=== PATIENT | female | born 2000 | race Caucasian/White ===

== ENCOUNTER 2024-09-14 20:16 | Inpatient (IN) | payer OTHER, SELFPAY ==
[2024-09-14] MEDS: LACTATED RINGERS 1,000 ML 125 ML IV CONT (21:26)
[2024-09-14] MEDS: AMPICILLIN 2 GM/NS 100 ML 2 GM/100 ML BAG IVPB (21:26)
[2024-09-14 21:27] VITALS: BMI 31.1
--- NOTE | 2024-09-14 21:29 | LDADM ---
This patient, Maricel Rosado, was admitted to Labor/Delivery/Recovery 103 on 09/14/24 at 20:16. Plans for labor, pain management and were discussed with patient. Patient/family oriented to hospital policies and general routines including ID bracelet, bed and alarms, visiting hours, pain management, procedures, bathroom and other care routines, personal items, smoking policy, room service/diet and guest tray routines, infant security routines, and visiting hours. Patient/Family are encouraged to report perceived risks to care and to ask questions if they do not understand what they are told or what they should do. See OBIX for further documentation.
[2024-09-14 21:32] LABS: Basophils Absolute Auto 0.1 K/mm3 (0.0-0.1); Basophils Percent Auto 0.3 % (0.2-1.2); Eosinophils Absolute Auto 0.1 K/mm3 (0-0.3); Eosinophils Percent Auto 0.7 % (0-4.4); Hematocrit 34.3 % (37.0-47.0); Hemoglobin 10.9 g/dL (12.0-15.0); Immature Granulocyte Absolute 0.19 K/mm3 (0.00-0.031); Immature Granulocyte Percent A 1.1 % (0-0.5); Lymphocytes Absolute Auto 2.17 K/mm3 (0.9-3.2); Lymphocytes Percent Auto 12.4 % (18.3-44.2); Mean Corpuscular HGB Conc 31.8 g/dl (32-36); Mean Corpuscular Hemoglobin 27.9 pg (26-34); Mean Corpuscular Volume 87.9 fl (80-100); Mean Platelet Volume 10.7 fl (7.4-10.4); Monocytes Absolute Auto 1.3 K/mm3 (0.1-0.6); Monocytes Percent Auto 7.3 % (2.6-8.5); Neutrophils Absolute Auto 13.7 K/mm3 (1.3-6.7); Neutrophils Percent Auto 78.2 % (45.5-73.1); Platelet Count Result 257 k/mm3 (150-375); Red Cell Distribution Width 14.3 % (11.5-14.5); White Blood Count 17.6 K/mm3 (4.5-10.0)
[2024-09-14 22:00] VITALS: TEMP 36.6
[2024-09-14 22:15] LABS: Syphilis IgG/IgM Antibody Negative (Negative)
[2024-09-14 22:22] LABS: HIV 1/2 Ab P24 Ag Result Negative (Negative)
[2024-09-14 22:30] VITALS: BP 112/74; PULSE 98
[2024-09-14 22:45] VITALS: BP 115/68; PULSE 116
[2024-09-14 23:00] VITALS: BP 108/79; PULSE 106
[2024-09-14 23:15] VITALS: BP 118/80; PULSE 134
[2024-09-14] MEDS: OXYTOCIN 30 UNITS/NS 500 ML 30 UNITS/500 ML BAG IV CONT (23:30)
[2024-09-14 23:45] VITALS: BP 94/72; PULSE 113
[2024-09-15] VITALS (99 sets, daily range): BP systolic 76–132; BP diastolic 44–99; PULSE 55–143; RESP 18; TEMP 36.2–36.8; O2SAT 94–100
[2024-09-15] MEDS: AMPICILLIN 1 GM/NS 50 ML 1 GM/50 ML BAG IVPB ×4 (01:38→14:12)
[2024-09-15] MEDS: fentaNYL CITRATE INJ (*CRX) 100 MCG/2 ML VIAL 50 MCG IV PUSH ×3 (03:51→13:07)
[2024-09-15] MEDS: LACTATED RINGERS 1,000 ML 125 ML IV CONT (08:32)
--- NOTE | 2024-09-15 09:28 | WPDOBADMIT ---
Obstetrics - Admit Note Admission Note: record reviewed. No pertinent additions to the history and/or any subsequent changes in the physical findings that are not consistent with the expected course of the were found. Additions to the history and/or subsequent changes in the physical findings follow. admit for SROM, hx asthma, marginal cord insertion, anticipate vaginal delivery
[2024-09-15] MEDS: ONDANSETRON INJ 4 MG/2 ML VIAL IV PUSH (09:56)
[2024-09-15] MEDS: fentaNYL CITRATE INJ (*CRX) 100 MCG/2 ML VIAL IV PUSH ×3 (14:46→18:23)
--- NOTE | 2024-09-15 16:42 | PM.OBPNLAB ---
Pain Control Date/time seen: 09/15/24 16:42 Comments: SVE /-2, US done, vertex, forebag ruptured clear fluid, anticipate vaginal delivery
[2024-09-15] MEDS: METHYLERGONOVINE MALEATE 0.2 MG/ML VIAL IM (18:25)
--- NOTE | 2024-09-15 18:30 | PM.OBPRVD ---
OB - Vaginal Delivery Note Procedure Delivery date: 09/15/24 Induction method: None Delivery augmentation: Rupture of Membranes and Pitocin Delivery monitor: External FHT and Internal Uterine Route of delivery: Episiotomy description: None Laceration Description: None Specimen: No Quantitative Blood Loss (ml): 400 Anesthesia type: None Disposition: Floor Complications: No immediate complications Baby Date of : 09/15/24 Time of : 18:13 Gestational Age by Date: 36 Infant gender: Female Weight (pounds): 5 Weight (ounces): 11 presentation: vertex position: Left Occiput Anterior Placenta delivery description: Spontaneous Cord Vessel Description: 3 Vessels score one minute: 9 score five minutes: 9 Narrative: bleeding increased after delivery of placenta, pitocin and methergine given, manual removal of large clots, then fundus firm
[2024-09-15] MEDS: OXYTOCIN 30 UNITS/NS 500 ML 30 UNITS/500 ML BAG 125 UNITS IV CONT (18:40)
--- NOTE | 2024-09-15 21:44 | OBPPTRN ---
09/15/2024 at 2032. Patient transferred to post room #112 in wheelchair. Support person Wali present. Lidia oriented to unit, room, information board, rooming in, admission packet and security measures. Lidia verbalizes understanding.
[2024-09-16] VITALS (7 sets, daily range): BP systolic 98–108; BP diastolic 51–64; PULSE 73–86; RESP 16–18; TEMP 36.2–36.5; O2SAT 99–100
[2024-09-16] MEDS: IBUPROFEN 600 MG TABLET PO ×2 (03:20→09:16)
[2024-09-16 05:06] LABS: Hematocrit 31.9 % (37.0-47.0); Hemoglobin 10.1 g/dL (12.0-15.0)
--- NOTE | 2024-09-16 08:42 | P.PNOB_ITS ---
OB - PN: Subj Subjective Date/time seen: 09/16/24 08:42 Interval history: pp day 1 doing well OB - PN: Obj Data Labs 09/16/24 04:59 Labs: Laboratory Results - last 24 hr 09/16/24 04:59 Hgb 10.1 L Hct 31.9 L OB - PN A/P Plan day: 1 Plan: routine care Time Spent With Patient Time: Total time spent is greater than 50% in coordination of care (as documented) at patient's floor/unit and/or counseling patient: Review of Systems 2 Review of Systems: All systems reviewed & are unremarkable except as noted in HPI and below Exam 2 Const: General: cooperative, healthy appearing and comfortable Chest: Chest palpation & inspection: normal inspection of the chest Cardio: Rate: regular rate Rhythm: regular rhythm Back/Spine/Pelvis: Back: no CVA tenderness Skin: General skin exam: normal color Neuro: General: patient oriented x3 Extrem: General: normal to inspection Psych: Appearance: grossly normal
[2024-09-16] MEDS: MULTIVIT/MIN/PREN/FOL AC/IRON TABLET 1 TAB PO (09:17)
[2024-09-17 07:25] VITALS: BP 114/64; PULSE 86; RESP 18; TEMP 36.8; O2SAT 97
[2024-09-17] MEDS: IBUPROFEN 600 MG TABLET PO (07:25)
[2024-09-17] MEDS: MULTIVIT/MIN/PREN/FOL AC/IRON TABLET 1 TAB PO (07:26)
[2024-09-17] MEDS: DOCUSATE SODIUM 100 MG CAPSULE PO (07:26)
[2024-09-17 07:29] VITALS: PULSE 85; O2SAT 97
[2024-09-17 07:30] VITALS: BP 114/64; PULSE 82
--- NOTE | 2024-09-17 13:09 | PC.NURSE ---
0750 Introductions were made, then consulted with patient to assess needs related to . Mother led the conversation with her?plans to feed?her and the?experience so far. Per mother she had tried to put baby to breast but her nipples are too large for the baby to latch right now and she just wants to pump and bottle feed, she may try to latch her at a later time. She declined any assistance and said she was already using her Mom Cozy breast pump and had the appropriate size flange. Instructions given on cleaning, care, usage, that there should be no pain, pumping schedule for milk production, collection, and storage of human milk. Patient advised to pump for comfort and nipple stretching/stimulation for adequate milk production every 3 hours (8 times in 24 hours) 1-2 times at night. Parents are encouraged to record the pumping schedule on the feeding sheet.?Mother voiced understanding of the education shared along with mom/baby guide and the pump measurement, flange fit handout for additional resource information. Mother had previously breastfed her 22 month old but had stopped when she found out she was . RN encouraged understanding of the benefits of skin to skin (demonstrating unwrapping and placing upright on her chest), stimulating with massage touch, changing positions to encourage wakefulness, how to watch for early feeding cues, responsive feeding, feeding on demand (aiming for 8-12 times in 24 hours, about every 2-3 hours), milk production, building/maintaining a milk supply, signs of adequate intake/output and how to record on the feeding sheet. Mother works well with her infant with encouragement and education. Reviewed comfort measures of healing with a warm, wet washcloth to rinse breast, then leave open to air-dry, good handwashing when /pumping or touching the breast/nipples to prevent infection. Mother voiced understanding of skin to skin, stimulating with massage touch, responsive feedings, or if there is discomfort with using breast pump. Resources used for breast pump education were facilitated with the [visual educational handouts/milk/storage guidelines/mom and baby guide], Inpatient/outpatient resources provided with feeding sheet, name written on the communication board, and the mom/baby guide. Parents voiced understanding of information, demonstrated learning and will call if there is a request for assistance. Reported to the Primary RN. 0900 Mother is feeding appropriately for growth of infant and understands stimulating infant to eat if needed. Infant has had appropriate feedings in the last 24 hours meets the outcomes for weight, output, blood sugar and jaundice at this time. Reinforced understanding of milk production, transition of milk, signs of adequate intake, transition of stool, prevention/relief of engorgement, plugged ducts, mastitis, responsive watching for feeding cues, the different methods of stimulating to breastfeed 1-3 hours after the start of the last feeding, community resources, and when to call a provider using the resource of the feeding sheet along with the mom and baby guide. Mother voiced understanding of the information shared, is confident to continue effectively her infant at home, when to call for assistance, denies any additional assistance or education at this time. Reported to the Primary RN.
[2024-09-18 10:23] VITALS: BP 108/70; PULSE 86; RESP 18; TEMP 36.5; O2SAT 99
--- NOTE | 2024-09-18 10:59 | P.DS_ITS ---
DS: Admitting Diagnosis Discharge Date 09/17/24 Admitting Diagnosis SROM OB - DS: Summary OB Procedures : None OB Procedures Intrapartum: Spontaneous Vag Delivery OB Procedures: : None Peripartum Data Laceration Description: None Episiotomy description: None Time Spent with Patient Time attestation: Total time spent providing and/or coordinating discharge services: DS: Data Data Completed and Pending Pending studies at discharge: Pending at discharge 09/17/24 07:42 Surgical [PTH] Routine Discharge Plan Discharge Consulting providers: Michaela Brower Discharging Clinician: Hector Garcia Patient Disposition: Home, Self-Care Activity: may shower Diet: regular Discharge Instructions: Education: Mom and Baby Guide Given to: Mother Follow-Up: Call your delivering provider's office for an appointment to be seen in: 4 Weeks Mom and baby should come to the [facility] for the follow-up appointment. Appointment Date/Time: September 18, 2024 at 10:00 am What to expect at your follow-up visit: Blood Pressure Check Physical Assessment Call [phone] if you are unable to keep your appointment time. BREAST CARE: * Wear a snug supportive bra. * For engorgement discomfort: Breast Feeding: * Apply warm moist washcloths * Express milk as needed to relieve engorgement * Wear loose clothing Bottle Feeding: * May apply ice packs * For sore nipples: * Identify correct latch-on * Apply warm moist washcloths before and after nursing * Air dry nipples after nursing * May apply Lansinoh cream to nipples ABDOMINAL INCISION: (if applicable) * Allow incision to air dry * Do NOT use lotions for powders on your incision * When showering, allow soap and water to run over the incision, but do not wash incision EPISIOTOMY/PERINEAL CARE: * Until bleeding stops, use your sergey bottle after urinating * Change your pad frequently throughout the day * You may take sitz baths several times a day (fill your bathtub with warm water and soak for 20 minutes.) Do NOT bathe in the water * No tub baths until seen by your physician - You may shower ACTIVITY: * Rest as much as possible. * Do not exercise or lift anything heavier than your baby (such as laundry or other children.) * Avoid stairs or driving as much as possible. * Do not put anything into the vagina. No douching, tampons, or sexual activity until seen by physician. NOTIFY PHYSICIAN IF YOU HAVE ANY QUESTIONS OR IF ANY OF THE FOLLOWING SYMPTOMS OCCUR: * If your episiotomy or incision becomes red, swollen, or more painful than what you have experienced in the hospital. * If your vaginal bleeding becomes foul smelling. * If your vaginal bleeding becomes more heavy than a period or if your bleeding changes from pink to bright red. However, you may pass an occasional walnut- sized clot once or twice for the first week . * If you experience a sharp, shooting pain in you calves. * If you discover a hard, reddened area on your breast or if you experience flu- like symptoms. DIET: * Eat regular, well-balanced meals. * Drink plenty of fluids daily. If , drink to thirst. Patient Language: Bulgarian Stand Alone Forms: General Discharge Information Follow-up/Referrals: Hector Garcia MD [Physician] - Discharge Medications: Discontinued Classic 28 mg iron- 800 mcg tablet ferrous sulfate 325 mg (65 mg iron) tablet 325 mg PO DAILY No Action PNV cmb#95-ferrous fumarate-FA [] 28 mg iron- 800 mcg Tablet 1 tablet PO DAILY Date of admission: 09/14/24 20:16 Primary Care Provider: UNKNOWN,DOCTOR Admitting Provider: Hector Garcia Attending physician on admission: Hector Garcia Condition: Stable
== END 2024-09-17 13:45 | disposition home or self-care (01) | DRG 560 ==
LOC: ANHLDR 22:52 → ANHOBPP 09-15 20:47 → ANHOB2 09-17 11:01
PROVIDERS: Admitting Provider Obstetrics & Gynecology; Referring Provider Advanced Practice Midwife; Visit Provider Obstetrics & Gynecology
DX: O43.123 Velamentous insertion of umbilical cord, third trimester (principal); O60.14X0 Preterm labor third trimester with preterm delivery third trimester, not applicable or unspecified; O72.1 Other immediate postpartum hemorrhage; Z3A.36 36 weeks gestation of pregnancy; Z37.0 Single live birth
CPT/HCPCS: 36415; 85014; 85018; 85025; 86593; 86703; 86850; 86900; 86901; 88307; A9270; G0432; J0290; J2210; J2405; J2590; J3010; J7120

== ENCOUNTER 2025-05-03 13:16 | Emergency (ER) | payer OTHER, SELFPAY ==
--- NOTE | ~2025-05-03 | US_ITS ---
US breast BI limited INDICATION: Blood and pus discharge from right nipple. Mild lower outer quadrant left breast. TECHNIQUE: Dedicated Limited bilateral breast ultrasound COMPARISON: No prior studies for comparison. FINDINGS: The breasts are composed of normal heterogeneous echotexture without focal solid or cystic mass. IMPRESSION: 1: Normal limited bilateral breast ultrasound. BI-RADS CATEGORY 1 - NEGATIVE Reviewed, dictated and finalized at location O. RER ELECTROPLATING
--- OUTSIDE RECORDS SUMMARY | 2025-05-03 13:21 | XMS_ITS | Clinical Summary ---
Author Organization [facility] Address [address] [address] Care Team Providers Care Wax Machine Operator Name Role Phone Saniya Mauro PA-C Primary Care Provider [phone] Source Comments [facility],non-owned Affiliates and Associated Physician Practices is amultiple site organization consisting of ambulatory clinics and hospital sitesin [place], [place], [place] and [place]. This disclosure is being madepursuant to the Care Everywhere program and may not contain all information available regarding this patient. Last updated 18.[facility] Allergies Active Allergy Reactions Criticality Noted Date Comments Amoxicillin 10/23/2009 Povidone Iodine Rash Medium 03/14/2018 Shellfish Allergy Swelling 03/14/2018 Medications * Be aware that medications may not be up to date on this document. Alwaysverify current medications with the patient. acetaminophen (TYLENOL) 500 MG tablet Take 1 tablet by mouth every 4 hours as needed for Fever or Pain Maximum allowable Acetaminophen amount = 4 Grams (4000 mg) / 24 hours. 8 Active ibuprofen (ADVIL) 200 MG capsule Take 2 capsules by mouth every 6 hours as needed for Pain 100 capsule 8 Active Active Problems Problem Noted Date Diagnosed Date Right lower quadrant abdominal tenderness 2017 Contusion of wrist 10/23/2009 Immunizations Immunization Administration Dates Next Due INFLUENZA VACCINE, QUADR. 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 Gender Identity Not on file Sexual Orientation Not on file Last Filed Vital Signs Vital Sign Reading Time Taken Comments Blood Pressure 94/50 03/15/2018 7:40 AM CDT Pulse 64 03/15/2018 7:40 AM CDT Temperature 36.3 C (97.4 F) 03/15/2018 7:40 AM CDT Respiratory Rate 12 03/15/2018 7:40 AM CDT Oxygen Saturation 98% 03/15/2018 7:40 AM CDT Inhaled Oxygen Concentration - - Weight 55.5 kg (122 lb 5.7 oz) 03/14/2018 2:22 P M CDT Height 163 cm (5' 4.17) 03/14/2018 2:22 PM CDT Body Mass Index 20.89 03/14/2018 2:22 PM CDT Plan of Treatment Health Maintenance Due Date Last Done Comments HIV SCREENING 2017 HPV VACCINE (1 - 3-dose series) 2017 CHLAMYDIA/GONORRHEA SCREENING 2018 MENINGOCOCCAL (Group B) VACC INE SHARED DECISION-MAKING (1 of 2 - Standard) 2018 HEPATITIS C SCREENING 10/25/2020 DTAP/TDAP/TD VACCINES (1 - Tdap) 2021 HEPATITIS B VACCINE (1 of 3 - 19+ 3-dose series) 2021 PAP SMEAR 10/31/2023 DEPRESSION SCREENING 06/27/2024 COVID-19 VACCINE (1 - 2023-2 5 season) 2025 INFLUENZA VACCINE (#1) 2025 03/15/2018 ZOSTER VACCINE (1 of 2) 2052 HIB VACCINE Aged Out No longer eligi ble based on patient's age to complete this topic MENINGOCOCCAL GROUPS A/C/Y/W VACCINE Aged Out No longer eligible b ased on patient's age to complete this topic PNEUMOCOCCAL VACCINE Aged Out No long er eligible based on patient's age to complete this topic Insurance SELF PAY NO INSURANCE Member Subscriber Plan / Payer (Ef fective for All Dates) Name:Maricel Leija Member ID:Not on file Relation to Subscriber:Not on file Name:MARICEL LEIJA Subscriber ID:Not on file (Home) Address: [place] [address] [place] [address] Payer ID:Not on file Group ID:Not on file Type:Self Pay Address: [place] [employer] Advance Directives * Full Code (Latest Code Status on File) Date Activated Date Inactivated Comments 03/14/2018 5:02 PM 03/15/2018 2:18 PM Care Teams Wax Machine Operator Relationship Specialty Start Date End Date Saniya Mauro PA-C PCP - General Physician Software Test Manager 03/14/18
[2025-05-03 13:25] VITALS: BP 127/79; PULSE 80; RESP 16; TEMP 36.4; O2SAT 99
--- NOTE | 2025-05-03 16:45 | ED.GENADULT ---
HPI - General Adult General Chief complaint: Unspecified Stated complaint: RIGHT BREAST IS BLEEDING Time Seen by Provider: 05/03/25 15:49 Source: patient Mode of arrival: ambulatory Limitations: no limitations History of Present Illness HPI narrative: Patient presents with report of noticing that her right breast was bleeding to the side of her nipple at 10am. She says both breasts have been sore and had lumps for which she is supposed to get an outpatient ultrasound June 13. Sees Michaela Brower (/Madina Padilla) for ObGyn care who ordered this study after examining her breasts as well (before bleeding had been appreciated). She also notes her breasts have felt engorged. LMP was last month though can not recall a date. Last delivered a baby September 15, 2024 but not . Sexually active with 1 male partner in the past month, the father of her children. Reports childbirth felt like a 10/10 and this is a 9/10. Related Data Home Medications ?Medication ?Instructions ?Recorded ?Confirmed ?Last Taken ?Type vit no.95-ferrous 1 tablet PO DAILY 11/01/22 11/23/22 11/22/22 08:00 History fumarate 28 mg-folic acid 800 mcg tablet () Allergies Allergy/AdvReac Type Severity Reaction Status Date / Time adhesive tape Allergy Mild Rash Verified 05/03/25 14:49 amoxicillin Allergy Mild Rash Verified 05/03/25 14:49 PMFSH Family History Family History (System 09/17/24 @ 13:35 by Lora Richardson) Sibling Asthma Mother Asthma Other No pertinent family history Social History Social History (System 09/17/24 @ 13:35 by Lora Richardson) Substance use: never Last use: [id number] Do You Feel Safe in your Home?: Yes Lack of Transportation: No Lack of Food: Never True Current Housing: I Have Housing Concerned About Future Housing: No Difficulty Paying Gas/Electric Bills: No Difficulty Paying for Meds: No Currently Unemployed: No Education: High School Diploma/GED Difficulty w/ Childcare or Family Care: No Spiritual care concerns: No Exam Narrative: GENERAL: Well-appearing, well-nourished, and in no acute distress. HEAD: Normocephalic, atraumatic. EYES: Non injected, non icteric ENT: Nares clear, no rhinorrhea or epistaxis. Gross auditory acuity intact. NECK: Supple. No meningismus. CHEST: Speaking in full sentences. No respiratory distress. Breast : Small pin point area oozing scant blood at the 3 o'clock position adjacent to the right nipple. No nipple discharge bilaterally, bloody or milky. No axillary lymphaedenopathy or irregularlies within tail of Bernal. Left breast does have a lump between the 3 o'clock and 6 o'clock position. HEART: Regular rate and rhythm. . ABDOMEN: Soft, nondistended. l EXTREMITIES: Normal range of motion. No lower extremity edema. SKIN: Warm, dry, no rash. NEURO: No focal deficits. Alert and oriented. Answering questions. Following commands. Normal speech without aphasia or dysarthria. PSYCH: Congruent mood and affect. Course Vital Signs Vital signs: Vital Signs Temperature 97.5 F L 05/03/25 13:25 Pulse Rate 80 05/03/25 13:25 Respiratory Rate 16 05/03/25 13:25 Blood Pressure 127/79 05/03/25 13:25 Pulse Oximetry 99 05/03/25 13:25 Temperature 97.7 F 05/03/25 19:48 Pulse Rate 80 05/03/25 19:48 Respiratory Rate 17 05/03/25 19:48 Blood Pressure 125/81 05/03/25 19:48 Pulse Oximetry 100 05/03/25 19:48 Medical Decision Making MDM Narrative Medical decision making narrative: Patient presents after noticing scant bleeding from an area at her right breast. In the emergency department they are afebrile with vital signs within normal limits. Notes her breasts have felt engorged; LMP sometime last month though date unknown. Discussed with radiology/US physics technician who notes they cannot perform Complete breast US exams in the ED. Will change the order to focus on the areas in question which include the bleeding area at the 3 o'clock position and the lump between the 3 and 6 o'clock position in the left breast. Patient has positive urine test. Normal renal function. Bhcg is only 148. Discussed with radiology/US physics technician and given how low it is and that she is asymptomatic and not the reason for her visit, low utility in ordering a pelvic/transvaginal ultrasound as unlikely to see anything. CBC unremarkable. Inflammatory markers negative. Bacteriuria on urinalysis. Patient had been notified of positive test. She has already reached out to Michaela Brower for ObGyn. Strict ED return precautions given as currently a of unknown location. Will Rx vitamins. Will treat bacteriuria during . Also ordered urine culture as per [facility] guidelines. First dose antibiotic given in the ED with rest of course presribed. Also prescribed acetaminophen. Patient seems somewhat surprised at the . Last delivery was in August 2024. She states they will be keeping the baby but her partner is going to get his balls cut so it doesn't happen again. Differential Diagnosis Differential Diagnosis: small lesion/abrasion/irritation/pimple; mastitis; malignancy; ; normal hormonal changes Vital Signs Vital Signs: Vital Signs Temperature 97.5 F L 05/03/25 13:25 Pulse Rate 80 05/03/25 13:25 Respiratory Rate 16 05/03/25 13:25 Blood Pressure 127/79 05/03/25 13:25 Pulse Oximetry 99 05/03/25 13:25 Temperature 97.7 F 05/03/25 19:48 Pulse Rate 80 05/03/25 19:48 Respiratory Rate 17 05/03/25 19:48 Blood Pressure 125/81 05/03/25 19:48 Pulse Oximetry 100 05/03/25 19:48 Lab Data Lab results reviewed: Yes I reviewed the patient's lab results. 05/03/25 17:13 05/03/25 17:13 Labs: Lab Results 05/03/25 05/03/25 05/03/25 Range/Units 17:13 17:19 17:24 WBC 9.3 (4.5-10.0) K/mm3 RBC 4.38 (4.2-5.4) M/mm3 Hgb 12.3 (12.0-15.0) g/dL Hct 38.1 (37.0-47.0) % MCV 87.0 (80-100) fl MCH 28.1 (26-34) pg MCHC 32.3 (32-36) g/dl RDW 12.8 (11.5-14.5) % Plt Count 304 (150-375) k/mm3 MPV 9.6 (7.4-10.4) fl Immature Gran % (Auto) 0.3 (0-0.5) % Neut % (Auto) 62.3 (45.5-73.1) % Lymph % (Auto) 27.7 (18.3-44.2) % [place] % (Auto) 6.4 (2.6-8.5) % Eos % (Auto) 2.8 (0-4.4) % Baso % (Auto) 0.5 (0.2-1.2) % Lymph # (Auto) 2.57 (0.9-3.2) K/mm3 [place] # (Auto) 0.6 (0.1-0.6) K/mm3 Eos # (Auto) 0.3 (0-0.3) K/mm3 Baso # (Auto) 0.1 (0.0-0.1) K/mm3 Abs Immat Gran (auto) 0.03 (0.00-0.031) K/mm3 Absolute Neuts (auto) 5.8 (1.3-6.7) K/mm3 Absolute Nucleated RBC 0.000 (0.0-0.012) K/mm3 Nucleated RBC % 0.0 (0.0-0.2) % ESR 16 (0-20) mm/hr Sodium 135 L (137-145) mmol/L Potassium 3.7 (3.4-5.0) mmol/L Chloride 103 (98-107) mmol/L Carbon Dioxide 24 (22-30) mmol/L Anion Gap 8 (4-12) mmol/L BUN 7 (7-17) mg/dL Creatinine 0.60 L (0.7-1.0) mg/dL Estim Creat Clear Calc 112 ml/min Estimated GFR > 60 (59 - ) Glucose 86 (65-110) mg/dL Calcium 8.8 (8.4-10.2) mg/dL C-Reactive Protein < 0.5 (<1.0) mg/dL Beta HCG, Quant 148.25 mIU/ML Urine Color Yellow (Yellow) Urine Appearance Cloudy H (Clear) Urine pH 6.0 (5.0-9.0) Ur Specific [place] 1.023 (1.001-1.035) Urine Protein Trace (Negative) mg/dL Urine Glucose (UA) Negative (Negative) mg/dL Urine Ketones Trace H (Negative) mg/dL Ur Blood (Man) Negative (Negative) Urine Nitrate Negative (Negative) Urine Bilirubin Negative (Negative) Urine Urobilinogen 1.0 (<2.0) mg/dL Add Ur Microanalysis Reviewed Leukocyte Esterase Rfl 1+ H (Negative) ABIMAEL/UL Urine RBC 0-2 (0-2) /hpf Urine WBC 21-50 H (0-3) /hpf Ur Squamous Epith Cells Many H (Few) /hpf Urine Bacteria 1+ H /hpf Urine Casts 0-2 POC Urine HCG, Qual Positive (Negative) Imaging Data Radiologist's impression: IMPRESSION: 1: Normal limited bilateral breast ultrasound. Discharge Plan Discharge Clinical Impression: Positive test, Bleeding from nipple in female, Bacteriuria during , of unknown anatomic location Patient Disposition: Home Condition: Stable Instructions: Antibiotic Form, (ED) Additional Instructions: As we discussed, you had a positive test and your blood test was also positive although just barely. Follow-up with your Ob Gyne. vitamins have been prescribed. Because you had bacteria in your urine, you are receiving antibiotics. You received the 1st dose and the rest of the course has been prescribed. Return to the emergency department with any new or worsening symptoms such as fever greater than 100.4? F, abdominal pain not responding to acetaminophen/Tylenol which is safe to take during , or bleeding saturating 2 or more pads an hours for 2-3 hours. Follow up with ObGyn regarding the bleeding at the nipple as well. Patient Language: Mohawk Prescriptions: New PNV no.95-ferrous fumarate-FA 28 mg iron- 800 mcg tablet 1 tablet PO DAILY Qty: 30 0RF cephalexin 500 mg capsule 500 mg PO Q6H 5 Days Qty: 19 0RF Rx Instructions: rec'd first dose in ED 05/03 acetaminophen 500 mg capsule 1,000 mg PO Q6H PRN (Reason: pain) Qty: 30 0RF No Action PNV no.95-ferrous fumarate-FA [] 28 mg iron- 800 mcg Tablet 1 tablet PO DAILY Follow-up/Referrals: Judith,EDINSON Osman [Primary Care Provider, Medical] Michaela Brower CNM [Certified Nurse Inside Sales Account Representative, REFERENCE ARCHIVIST] Stand Alone Forms: Work/School Release IP Time of Disposition: 19:31
[2025-05-03] MEDS: ACETAMINOPHEN 500 MG TABLET 1000 MG PO (17:18)
[2025-05-03 17:19] LABS: Hematocrit 38.1 % (37.0-47.0); Hemoglobin 12.3 g/dL (12.0-15.0); Immature Granulocyte Percent A 0.3 % (0-0.5); Lymphocytes Absolute Auto 2.57 K/mm3 (0.9-3.2); Mean Corpuscular HGB Conc 32.3 g/dl (32-36); Mean Corpuscular Hemoglobin 28.1 pg (26-34); Mean Corpuscular Volume 87.0 fl (80-100); Nucleated Red Blood Cells Absolute Auto 0.000 K/mm3 (0.0-0.012); Nucleated Red Blood Cells Perc 0.0 % (0.0-0.2); Platelet Count Result 304 k/mm3 (150-375); Red Blood Count 4.38 M/mm3 (4.2-5.4); White Blood Count 9.3 K/mm3 (4.5-10.0)
[2025-05-03 17:25] LABS: BEDSIDEPREGUCG Positive (Negative)
[2025-05-03 17:35] LABS: Anion Gap 8 mmol/L (4-12); Blood Urea Nitrogen 7 mg/dL (7-17); CRP < 0.5 mg/dL (<1.0); Calcium 8.8 mg/dL (8.4-10.2); Carbon Dioxide 24 mmol/L (22-30); Chloride 103 mmol/L (98-107); Estimated CRCL calculation 112 ml/min; Estimated Glomerular Filt Rate > 60; Glucose 86 mg/dL (65-110); Potassium 3.7 mmol/L (3.4-5.0); Sodium 135 mmol/L (137-145)
[2025-05-03 17:48] LABS: Add Urine Microscopic? YES; Appearance Urine Cloudy (Clear); Glucose Urine UA Negative (Negative); Leukocyte Esterase Ur 1+ LEU/UL (Negative); Need Manual Microscopic Reviewed; Nitrate Urine Negative (Negative); Non Pathogenic Casts 0-2; Specific Grav Ur 1.023 (1.001-1.035)
[2025-05-03 18:18] LABS: Beta HCG Quantitative 148.25 mIU/ML
[2025-05-03 19:30] VITALS: BP 125/81; PULSE 80; RESP 17; TEMP 36.5; O2SAT 100
[2025-05-03] MEDS: CEPHALEXIN 500 MG CAPSULE PO (19:40)
[2025-05-03 19:48] VITALS: BP 125/81; PULSE 80; RESP 17; TEMP 36.5; O2SAT 100
== END 2025-05-03 19:58 | disposition home or self-care (01) ==
PROVIDERS: Emergency Provider Student in an Organized Health Care Education/Training Program; PCP Physician Assistant
DX: O99.891 Other specified diseases and conditions complicating pregnancy (principal); N64.59 Other signs and symptoms in breast; O26.891 Other specified pregnancy related conditions, first trimester; R82.71 Bacteriuria; Z3A.01 Less than 8 weeks gestation of pregnancy
CPT/HCPCS: 36415; 76642; 80048; 81001; 81025; 84702; 85025; 85652; 86140; 87086; 99284; A9270

== ENCOUNTER 2025-06-25 02:08 | Day surgery (SDC) | payer OTHER, SELFPAY ==
[2025-06-24 10:45] VITALS: BMI 24.9
--- NOTE | 2025-06-24 10:53 | PC.NURSE ---
[facility] has started construction of its new state of the art ER which will open Spring 2026. With this, we anticipate parking may be a challenge for some our surgical patients and families. Parking spaces are limited but are available for all Surgical, obstetrics, and ER patients sharing this lot. If you arrive and find you are having a hard time finding a parking space, please note that we understand the challenges, please drive around the hospital and park near Hospital Entrance 1. When you enter this entrance, you can ask a volunteer to direct or take you back to the surgical waiting area to check in. We appreciate everyone?s understanding of these expected challenges while we build for your future. Report to the Outpatient Waiting Room, entrance under the green pavilion located off [address], at time __1100am on date _06/25/25 . Planned Procedure Time: __1:00pm .? Time changes happen often and if your time is changed the preop area will call you the afternoon before. - You and your visitor will be asked to self-screen and do not enter if you have any COVID symptoms. Please call surgeon if you need to reschedule. - A mask is optional within the hospital at this time. Patients may have clear liquids (water, carbonated beverages, clear teas, apple juice) until 3 hours prior to surgery with a maximum of 20 ounces. - No food from midnight until time of surgery and no smoking, or chewing tobacco (or any form of nicotine). No chewing gum, candy or mints. (1000am) Take only the following medications with a SIP of water on the morning of surgery: NONE DO NOT STOP ANY OF YOUR OTHER PRESCRIPTION MEDICATIONS PRIOR TO SURGERY EXCEPT THE FOLLOWING Hold all vitamins and supplements for 3 days per anesthesiologist. Medications to discontinue per physician NONE Date to take last dose___NONE Please no make-up, nail kyrgyz, hairspray, perfume, deodorant, or body powder the day of surgery.? No jewelry (including any body piercings) or valuables the day of surgery, leave them at home.? Please take a shower or bath the night before, or the morning of, surgery with an antibacterial soap.? Wear comfortable, loose fitting clothing.? - Jewelry must be removed prior to entering the operating room.? Rings and piercings that are not removed may be cut off. - The hospital will not accept responsibility for valuables.? - Please leave all valuables, including medications, at home the day of surgery. If you are going home after surgery, a licensed haul driver must drive you home.? - NO public transportation without another adult if you receive anesthesia. - We recommend that an adult stay with you for 24 hours following discharge. - We also recommend that you do not drive, make important decision, drink alcoholic beverages, or take any drugs that were not prescribed by your health care provider for at least 24 hours after your discharge time. Follow any additional instructions given to you from your surgeon. Telephone instructions given to _Patient and asked if any additional questions and then verbalized understanding. Patient advised to call surgeon office or pre surgery nurse liaison [phone] if any additional questions.
--- OUTSIDE RECORDS SUMMARY | 2025-06-25 02:10 | XMS_ITS | Continuity of Care Document ---
Author Organization [facility] [place] Address [address] [place] [address] [place] [address] Care Team Providers Care Lens Blank Gauger Name Role Phone DARBY SINGH Primary Care Provider Assessment No assessment recorded. Plan of Treatment Reminders Order Date Submit Date Provider Last Modified By Organization Details Last Modified Time Details Appointments SURG Suction D&C 2024 01:00P Eneida QUIJANO MD Not available Not available Not available SURG POST OP 2025 02:15P Eneida QUIJANO MD Not available Not available Not available Lab None recorded. Referral None recorded. Procedures None recorded. Surgeries None recorded. Imaging US, obstetric , transvagi nal 2024 025 [email or web address] [place], [address], [address], [place], [address], 06/20/2025 21:45:22 Medication Orders None recorded. Patient TargetsNo targets recorded. Patient InstructionsNo instructions recorded. Reason for Referral None Reported. Results Created Date Observation Date Name Description Value Unit Range Abnormal Flag Note LastModifiedBy Organization Detail LastModifiedTime 06/05/2006/05/2025 US, obste tric, trans vagin al No observ ation record ed. [email or web address] [address], [place], [address], 06/05/2025 16:23:37 06/05/20 25 06/05/2025 US, obste tric, trans vagin al No observ ation record ed. [email or web address] [address], [place], [address], 06/08/2025 00:14:52 06/18/20 25 06/18/2025 US, obste tric, trans vagin al No observ ation record ed. [email or web address] [place] [address], [place], [address], 06/18/2025 13:04:32 06/18/20 25 06/18/2025 US, obste tric, trans vagin al No observ ation record ed. [email or web address] [address], [place], [address], 06/24/2025 22:46:38 Result Notes None recorded. Problems Name Problem SNOMED Code Status Onset Date Resolution Date Notes Provider Name and Address Organization Details Recorded Time Asthma 971586453 Active Hector Quijano MD [address], [place], [address], [facility] 4 15:10:50 Asthma 132987061 Completed Hector Quijano MD [address], [place], [address], [facility] 4 15:10:50 Marginal insertio n of umbilica l cord 01668974 Completed serial growth Michelle Witt null, [facility] 4 11:44:25 Placenta circumva llata 9940035 Completed Gabriel Phillips null, [facility] 4 09:51:05 Asthma in pregnanc y [id number] 9103 Completed 2021 mild, has inhaler Gabriel Phillips [facility], [facility] 3 16:00:15 Pregnanc y 55570736 Completed 202112/10/2022 Vickie Sierra null, [facility] 5 13:47:46 Uterine size for dates luc ncy 158424753 Completed [address] [facility] 3 16:00:15 Pregnanc y 75968221 Completed 202310/06/[address] [facility] 5 13:47:46 Mixed anxiety and depressi ve disorder 129081905 Active [address] [facility] 5 12:52:52 Problem Notes None recorded. Procedures Surgical History Date Name Laterality Status Provider Name and Address Organization Details Recorded Time 4 IUD Insertion cancelled Jennifer Ruano [facility] 10/06/2023 15:37:22 1 procedure on hand completed Miriandmitry Novak [facility] 08/09/2022 10:18:28 1 procedure on elbow completed Miriandmitry Novak [facility] 08/09/2022 10:18:23 Imaging Results None recorded. Procedure Notes None recorded. Medical Equipment None Reported. Allergies Allergen ID Allergen Name Allergen Category Reaction Reaction Severity Criticality Documentation Date Start Date Code Code System Note Provider Name and Address Organization Details Recorded Time 98915 amoxicill in medicatio n Not available Not available Not available 04/14/[address] [facility] 2 14:37:19 80341 povidone- iodine medicatio n rash Not available high 05/20/20252017 8611 RxNorm Not Available lizandro - External Data Service - prod 5 11:22:36 Medications Name Sig Start Date Stop Date Status Note LastModified by Organization Details LastModified Time celecoxib 200 mg capsule TAKE 1 CAPSULE BY MOUTH EVERY DAY 04/14 completed Not Available Not Available Not Available prednisone 10 mg tablet 04/14 completed Not Available Not Available Not Available Vitamin B-6 25 mg tablet 04/14 completed Not Available Not Available Not Available cetirizine 10 mg tablet TAKE 1 TABLET BY MOUTH EVERY DAY DIRECTED 04/14 completed Not Available Not Available Not Available fluconazole 150 mg tablet TAKE 1 TABLET BY MOUTH NOW AND 1 TABLET IN 48 HOURS 04/22 completed Not Available Not Available Not Available hydrocodone 5 mg-acetamin ophen 325 mg tablet TAKE 1 TABLET BY MOUTH EVERY 6 HOURS active Not Available Not Available No t Available metronidazo le 0.75 % (37.5 mg/5 gram) vaginal gel INSERT 1 APPLICATO RFUL VAGINALLY EVERY DAY 11/12 completed Not Available Not Available Not Available metronidazo le 500 mg tablet TAKE 1 TABLET BY MOUTH TWICE DAILY FOR 7 DAYS DIRECTED 10/17 completed Not Available Not Available Not Available triamcinolo ne acetonide 0.1 % topical cream APPLY THIN LAYER TOPICALLY TO THE AFFECTED AREA TWICE DAILY FOR 7 TO 10 DAYS 04/14 completed Not Available Not Available Not Available Depo-Key Sander a 150 mg/mL intramuscul ar suspension Inject 1 mL every 3 months by intramusc ular route as directed for 90 days. 10/05 completed Not Available Not Available Not Available cephalexin 500 mg capsule TAKE 1 CAPSULE BY MOUTH EVERY 6 HOURS FOR 7 DAYS DIRECTED 04/06 completed Not Available Not Available Not Available pantoprazol e 40 mg tablet,fernando yed release TAKE 1 TABLET BY MOUTH EVERY DAY 10/17 completed Not Available Not Available Not Available oseltamivir 75 mg capsule 03/24 completed Not Available Not Available Not Available misoprostol 200 mcg tablet TAKE 5 TABLETS BY MOUTH FOR 1 DOSE active Not Available Not Available No t Available sertraline 25 mg tablet TAKE 1 TABLET BY MOUTH EVERY DAY 04/22 completed Not Available Not Available Not Available diclofenac sodium 75 mg tablet,fernando yed release 04/14 completed Not Available Not Available Not Available ergocalcife rol (vitamin D2) 1,250 mcg (50,000 unit) capsule Take 1 capsule every week by oral route, for 12 weeks and than repeat vit d blood work. active Not Available Not Available No t Available albuterol sulfate HFA 90 mcg/actuati on aerosol inhaler Inhale 2 puffs every 4 hours by inhalatio n route. 10/17 completed Not Available Not Available Not Available ondansetron 4 mg disintegrat ing tablet DISSOLVE 1 TABLET ON THE TONGUE THREE TIMES DAILY NEEDED 11/12 completed Not Available Not Available Not Available sertraline 50 mg tablet Take 1 tablet every day by oral route as directed. 04/22 completed Not Available Not Available Not Available doxycycline hyclate 100 mg tablet TAKE 1 TABLET BY MOUTH TWICE DAILY FOR 7 DAYS 10/17 completed Not Available Not Available Not Available escitalopra m 10 mg tablet TAKE 1 TABLET BY MOUTH EVERY DAY 04/22 completed Not Available Not Available Not Available cyclobenzap rine 5 mg tablet TAKE 1 TABLET BY MOUTH EVERY 8 HOURS NEEDED 11/12 completed Not Available Not Available Not Available 1.5/30 (28) 1.5 mg-30 mcg (21)/75 mg (7) tablet TAKE 1 TABLET BY MOUTH EVERY DAY 05/16 completed Not Available Not Available Not Available Depo-SubQ provera 104 104 mg/0.65 mL subcutaneou s syringe Inject 0.65 mL every 3 months by subcutane ous route. 03/23 completed Not Available Not Available Not Available 06/06 completed Not Available Not Available Not Available 28 mg iron-800 mcg tablet Take 1 tablet by oral route for 30 days. 06/29 completed Not Available Not Available Not Available Xulane 150 mcg-35 mcg/24 hr transdermal patch Apply 1 transderm al patch weekly x 3 weeks, followed by 1 patch free week 12/05 completed Not Available Not Available Not Available Vitals Date Recorded Body height Body mass index (BMI) Body weight Systolic And Diastolic Provider Name and Address Organization Details Last Updated DateTime 06/18/2025 165.1 cm 25 kg/m2 91589.86 g 102/70 mm[Hg] Radha Blue [facility] 06/18/2025 11:08:38 Social History Question Answer Notes LastModified by Organizat ion Details LastModified Time Tobacco Smoking Status Never Smoker Mirian marvin, [facility] 08/09/2022 10:11:03 Do You Have An Advance Directive? No [email or web address] Information n ot available 08/09/2022 Are You Blind Or Do You Have Difficulty Seeing? No [email or web address] Information n ot available 08/09/2022 What Is Your Level Of Caffeine Consumption? Occasional [email or web address] Information not available 08/09/2022 How Much Tobacco Do You Chew? None [email or web address] Information not available 08/09/2022 In The 14 Days Before Symptom Onset, Have You Had Close Contact With A Laboratory-confirm ed COVID-19 While That Case Was Ill? No [email or web address] Information n ot available 08/09/2022 In The 14 Days Before Symptom Onset, Have You Had Close Contact With A Person Who Is Under Investigation For COVID-19 While That Person Was Ill? No [email or web address] Information not available 08/09/2022 Have You Been To An Area Known To Be High Risk For COVID-19? No [email or web address] Information not available 08/09/2022 Are You Deaf Or Do You Have Serious Difficulty Hearing? No [email or web address] Information not available 08/09/2022 What Type Of Diet Are You Following? REGULAR [email or web address] Information n ot available 08/09/2022 What Is The Highest Grade Or Level Of School You Have Completed Or The Highest Degree You Have Received? [id number] Information not available 08/09/2022 Are There Any Guns Present In Your Home? No [email or web address] Information not available 08/09/2022 Do You Use Protection During Sex? No [email or web address] Information not available 08/09/2022 Do You Use Your Seat Belt Or Car Seat Routinely? Yes [email or web address] Information not available 08/09/2022 Do You Have Smoke And Carbon Monoxide Detectors In Your Home? No [email or web address] Information not available 08/09/2022 How Much Tobacco Do You Smoke? No [email or web address] Information not available 08/09/2022 Do You Use Sunscreen Routinely? Yes [email or web address] Information not available 08/09/2022 Has Tobacco Cessation Counseling Been Provided? No [email or web address] Information not available 08/09/2022 Have You Used IV Drugs? Yes [email or web address] Information not available 08/09/2022 Do You Have Difficulty Walking Or Climbing Stairs? No Information not available 08/09/2022 Sex: Unknown Functional Status Question Answer Note LastModified by Organizat ion Details LastModified Time Do you use any illicit or recreational drugs? No Information not available 04/14/2022 Do you or have you ever used any other forms of tobacco or nicotine? No [email or web address] Information not available 08/09/2022 What is your level of alcohol consumption? None Information not available 04/14/2022 Are you able to walk independently without assistance or assistive devices? YESWOREST [email or web address] Information not available 08/09/2022 Are you able to care for yourself independently? Yes [email or web address] Information not available 08/09/2022 Do you have difficulty dressing, bathing, grooming, or toileting? No [email or web address] Information not available 08/09/2022 What is your exercise level? None [email or web address] Information not available 08/09/2022 Mental Status Question Answer Note LastModified by Organization D etails LastModified Time Do you feel stressed (tense, restless, nervous, or anxious, or unable to sleep at night)? [id number] [email or web address] Information not available 08/09/2022 Family History Relationship Description Onset Age of this Age Resolved Age Notes LastModified by Organization Details LastModified Time Mother Asthma [email or web address] Not available 14:38:15 Mother Anxiety disorder [email or web address] Not available 2021 14:38:24 Sister Asthma [email or web address] Not available 14:38:15 Brother Asthma [email or web address] Not available 1 14:38:15 Medical History Condition Response Allergies (Food, seasonal, environmental ) Y Other Y Breast Cancer N Blood Transfusion N Drug/Latex Allergies/Reactions N Dermatologic Disorders N Lung Disease N Defects or Inherited Disease N Breast Problem N Gestational Diabetes N Hematologic disorders N Anesthesia Complications N History of STI N Deep Vein Thrombosis N Polycystic ovary syndrome N Anxiety Disorder N Autoimmune disease N Arthritis N Polyps N Infertility N Acid Reflux (GERD) N History of abnormal pap N Cancer N Varicosities N Stroke N Neurologic/Epilepsy N Endometriosis N High Cholesterol N Fibromyalgia N Headaches N Kidney Disease N Heart Problems N Thyroid Problems N Kidney or Bladder Problems N GI Problems N Eating Disorder N Anemia N Art (IVF or FET) N Psychiatric Illness N Ovarian Cancer N Diabetes N Pulmonary (TB, Asthma) N Hepatitis/Liver Disease N No Past Medical History N Eczema N Urinary Tract Infection N Abuse/Domestic Violence N Asthma Y Trauma/Violence N Depression/ depression Y Heart Disease N Pre-Eclampsia N Hypertension N Osteoporosis N Thrombophilias N Gynecological History Statement/Question Response Abnormal Pap N Date of Last Mammogram Date of LMP 03/21/2025 On BCP's at Conception? N N Was last menstrual period normal Y STIs/STDs N HPV Vaccine Y Duration of Flow (days) 2 Current Control Method Age at First Child 21 Are cycles usually normal Y Date of Last Colonoscopy Frequency of Cycle (Q days) 28 Sexually Active? Y Menses Monthly Y Date of DEXA bone scan Date of Last Pap Smear Sexual Problems? N LMP Unknown N Obstetrics History GPAL:G 3 P 1 1 1 2 Type Value Full Term 1 Spontaneous 1 Premature 1 Living 2 Total 3 Past Encounters Encounter ID Performer Location Encounter Start Date Encounter Closed Date Diagnosis/Indication Diagnosis SNOMED-CT Code Diagnosis ICD10 Code Diagnosis IMO Codes Diagnosis Note [id number] Hector Quijano MD [place] [address] [address] 06/05/2025 13:28:58 06/05/2025 14:43:27 Missed miscarriage [id number] O02.1 87507 This patient is a 24 female who presents for [missed discussed the etiology, frequency, natural history, and treatment of this condition. Spent more than 35 minutes talking about the above, as well as, her history, the particular findings of her case, and detail of her the treatment options. We discussed the risk benefits of each option. She understand s the risk include infection and hemorrhage . She understand s a D&C also holds the risk of injury. She understand s that waiting can result in a septic that is even more difficult to treat. We talked about signs and symptoms of infection. have elected to use Cytotec. She was given precaution s and instructio ns. She is given risks, benefits, and alternativ es. She will return in 1 week. spent more than 30 minutes on her care in total. [id number] Hector Quijano MD [place] [address] [address] 06/05/2025 13:27:36 06/05/2025 14:08:05 Missed miscarriage [id number] O02.1 Z3A.01 93620 [id number] Hector Quijano MD [place] [address] [address] 06/18/2025 10:14:50 06/18/2025 10:54:34 Missed miscarriage [id number] O02.1 Z3A.01 86004 [id number] Michaela Brwoer CNM [place] [address] [address] 06/18/2025 10:15:45 06/18/2025 11:23:24 Miscarriage [id number] O03.9 81680 plan checking cbc and, check hgc quant until zero se risks and benefitsal so reviewed mirena iud will plan after quant is zero discussed risk of infection, perforatio n and expulsion Health Concerns Section Related Observation LastModified by Organization Detai ls LastModified Time None Recorded Concern Status LastModified by Organization Details LastModified Time None Recorded Payers Encounter Date Sequence Insurance Name Policy Number Policy Jim Covered Member ID Jim Member ID Guarantor Name 06/18/2025 1 [facility] - DOS ON OR AFTER 20 (MEDICAID REPLACEMENT - HMO) Maricel Rosado [id number] Maricel Rosado Notes Date Note Type Note Provider Name and Address Organization Details Recorded Time 06/18/2025 text/html ROS as noted in the HPI hx missed ab, had cytotec, bled heavily, now still spotting, reviewed us, lining 14.3 no visible Michaela Brower CNM [address], [place], [address], [place] [facility] 06/18/2025 11:22:51 OBGyn Episode No OBEpisode recorded.
--- OUTSIDE RECORDS SUMMARY | 2025-06-25 02:10 | XMS_ITS | Continuity of Care Document ---
Author Organization [facility] Address [address] [place] [address] [place] [address] Care Team Providers Care Fisher Eel Spear Name Role Phone DARBY SINGH Primary Care Provider Assessment No assessment recorded. Plan of Treatment Reminders Order Date Submit Date Provider Last Modified By Organization Details Last Modified Time Details Appointments SURG Suction D&C 2024 01:00P Eneida QUIJANO MD Not available Not available Not available SURG POST OP 2025 02:15P Eneida QUIJANO MD Not available Not available Not available Lab test, urine 2024 025 [facility], [address], [address], [place], [address], 04/22/2025 16:34:51 Referral None recorded. Procedures None recorded. Surgeries None recorded. Imaging US, breast, bilateral , complete 2024 025 [facility], [address], [address], [place], [address], 05/10/2025 04:12:08 Medication Orders None recorded. Patient TargetsNo targets recorded. Patient InstructionsNo instructions recorded. Reason for Referral None Reported. Results Created Date Observation Date Name Description Value Unit Range Abnormal Flag Note LastModifiedBy Organization Detail LastModifiedTime 04/22/20 25 04/22/2025 pregn maria c test, urine HCG negati ve Not Available [facility] [address], [place], [address], 04/22/2025 16:34:44 05/16/20 25 05/16/2025 US, obste tric, trans vagin al No observ ation record ed. [email or web address] [facility] [address], [place], [address], 05/16/2025 13:00:52 05/16/20 25 05/16/2025 US, obste tric, follo w-up No observ ation record ed. [email or web address] [address], [place], [address], 05/20/2025 11:32:22 06/05/20 25 06/05/2025 US, obste tric, trans vagin al No observ ation [email or web address] [address], [place], [address], 06/05/2025 16:23:37 06/05/20 25 06/05/2025 US, obste tric, trans vagin al No observ ation record ed. [email or web address] [address], [place], [address], 06/08/2025 00:14:52 06/18/20 25 06/18/2025 US, obste tric, trans vagin al No observ ation record ed. [email or web address] [facility] [address], [place], [address], 06/18/2025 13:04:32 06/18/20 25 06/18/2025 US, obste tric, trans vagin al No observ ation record ed. [email or web address] [address], [place], [address], 06/24/2025 22:46:38 Result Notes None recorded. Problems Name Problem SNOMED Code Status Onset Date Resolution Date Notes Provider Name and Address Organization Details Recorded Time Asthma 848231149 Active Hector Quijano MD [address], [place], [address], [facility] 4 15:10:50 Asthma 723492472 Completed Hector Quijano MD [address], [place], [address], [facility] 4 15:10:50 Marginal insertio n of umbilica l cord 76093071 Completed serial growth Michelle Eduar null, [facility] 4 11:44:25 Placenta circumva llata 3603104 Completed Gabriel Phillips [facility], [facility] 4 09:51:05 Asthma in pregnanc y 2526155054 9103 Completed 2021 mild, has inhaler Gabriel Phillips [facility], [facility] 3 16:00:15 Pregnanc y 32800415 Completed 202112/10/2022 Vickie Sierra null, [facility] 5 13:47:46 Uterine size for dates discrepa ncy 939681682 Completed 2022 Gabriel Phillips [facility], [facility] 3 16:00:15 Pregnanc y 72923253 Completed 202310/06/2024 Vickie Sierra null, [facility] 5 13:47:46 Mixed anxiety and depressi ve disorder 105890151 Active 2024 Mirian Novak null, [facility] 5 12:52:52 Problem Notes None recorded. Procedures Surgical History Date Name Laterality Status Provider Name and Address Organization Details Recorded Time 4 IUD Insertion cancelled Jennifer Ruano [facility] 10/06/2023 15:37:22 1 procedure on hand completed Mirian Novak [facility] 08/09/2022 10:18:28 1 procedure on elbow completed Mirian Novak [facility] 08/09/2022 10:18:23 Imaging Results None recorded. Procedure Notes None recorded. Medical Equipment None Reported. Allergies Allergen ID Allergen Name Allergen Category Reaction Reaction Severity Criticality Documentation Date Start Date Code Code System Note Provider Name and Address Organization Details Recorded Time amoxicill in medicatio n Not available Not available Not available 04/14/2022 723 RxNorm Vanessa Sommers yon [facility] 2 14:37:19 10895 povidone- iodine medicatio n rash Not available high 05/20/20252017 8611 RxNorm Not Available [place] - External Data Service - prod 5 [...] completed Not Available Not Available Not Available Depo-Director Labor Standards a 150 mg/mL intramuscul ar suspension Inject [...] and Address Organization Details Last Updated DateTime 04/22/2025 165.1 cm 26 kg/m2 63729.41 g 108/74 mm[Hg] Rama uHff [facility] 04/22/2025 15:48:16 Social History Question Answer Notes LastModified by Organizat ion Details LastModified Time Tobacco Smoking Status Never Smoker Mirian marvin, [facility] 08/09/2022 10:11:03 Do You Have An Advance Directive? No [email or web address] Information n ot available 08/09/2022 Are You Blind Or Do You Have Difficulty Seeing? No [email or web address] Information n ot available 08/09/2022 What Is Your Level Of Caffeine Consumption? Occasional [email or web address] Information not available 08/09/2022 How Much Tobacco Do You Chew? None [email or web address] Information not available 08/09/2022 In The 14 Days Before Symptom Onset, Have You Had Close Contact With A Laboratory-confirm ed COVID-19 While That Case Was Ill? No [email or web address] Information n ot available 08/09/2022 In The 14 Days Before Symptom Onset, Have You Had Close Contact With A Person Who Is Under Investigation For COVID-19 While That Person Was Ill? No [email or web address] Information not available 08/09/2022 Have You Been To An Area Known To Be High Risk For COVID-19? No Information not available 08/09/2022 Are You Deaf Or Do You Have Serious Difficulty Hearing? No Information not available 08/09/2022 What Type Of Diet Are You Following? REGULAR [email or web address] Information n ot available 08/09/2022 What Is The Highest Grade Or Level Of School You Have Completed Or The Highest Degree You Have Received? [id number] [email or web address] Information not available 08/09/2022 Are There Any Guns Present In Your Home? No [email or web address] Information not available 08/09/2022 Do You Use Protection During Sex? No [email or web address] Information not available 08/09/2022 Do You Use Your Seat Belt Or Car Seat Routinely? Yes [email or web address] Information not available 08/09/2022 Do You Have Smoke And Carbon Monoxide Detectors In Your Home? No Information not available 08/09/2022 How Much Tobacco Do You Smoke? No [email or web address] Information not available 08/09/2022 Do You Use Sunscreen Routinely? Yes [email or web address] Information not available 08/09/2022 Has Tobacco Cessation Counseling Been Provided? No [email or web address] Information not available 08/09/2022 Have You Used IV Drugs? Yes [email or web address] Information not available 08/09/2022 Do You Have Difficulty Walking Or Climbing Stairs? No Information not available 08/09/2022 Sex: Unknown Functional Status Question Answer Note LastModified by Organizat ion Details LastModified Time Do you use any illicit or recreational drugs? No Information not available 04/14/2022 Do you or have you ever used any other forms of tobacco or nicotine? No [email or web address] Information not available 08/09/2022 What is your level of alcohol consumption? None Information not available 04/14/2022 Are you able to walk independently without assistance or assistive devices? YESWOREST [email or web address] Information not available 08/09/2022 Are you able to care for yourself independently? Yes [email or web address] Information not available 08/09/2022 Do you have difficulty dressing, bathing, grooming, or toileting? No [email or web address] Information not available 08/09/2022 What is your exercise level? None [email or web address] Information not available 08/09/2022 Mental Status Question Answer Note LastModified by Organization D etails LastModified Time Do you feel stressed (tense, restless, nervous, or anxious, or unable to sleep at night)? [id number] [email or web address] Information not available 08/09/2022 Family History Relationship Description Onset Age of this Age Resolved Age Notes LastModified by Organization Details LastModified Time Mother Asthma [email or web address] Not available 14:38:15 Mother Anxiety disorder smcaley Not available 2021 14:38:24 Sister Asthma smcaley Not available 14:38:15 Brother Asthma smcaley Not available 1 14:38:15 Medical History Condition Response Allergies (Food, seasonal, environmental ) Y Other Y Drug/Latex Allergies/Reactions N Blood Transfusion N Breast Cancer N Dermatologic Disorders N Lung Disease N [...] ICD10 Code Diagnosis IMO Codes Diagnosis Note [id number] JEREMY Moran [facility] [address] [address] 04/22/2025 14:56:28 04/23/2025 09:10:56 Pain of breast 35527977 N64.4 24862 order given for bilateral breast u/slimit caffiene, supportive bras, avoid underwireR TC for WWE Time spent in visit is a total of 20 mins with at least 50% of visit consisting of counseling and review of plan of care. Health Concerns Section Related Observation LastModified by Organization Detai ls LastModified Time None Recorded Concern Status LastModified by Organization Details LastModified Time None Recorded Payers Encounter Date Sequence Insurance Name Policy Number Policy Jim Covered Member ID Jim Member ID Guarantor Name 04/22/2025 1 [facility] ON OR AFTER 12/25/20 (MEDICAID REPLACEMENT - HMO) Maricel Rosado [id number] Maricel Rosado Notes Date Note Type Note Provider Name and Address Organization Details Recorded Time 04/22/2025 text/html 24yoHere today for evaluation of bilateral breast pain. Symptoms on and off x 2 wks. Tenderness throughout bilateral breast. Milky discharge on and off when expressed since having her daughter 08/2024. She denies feeling any lumps. She is on an OCP for BC. Drinks minimal caffeine. JEREMY Moran [address], [place], [address], [facility] 04/23/2025 09:10:28 OBGyn Episode No OBEpisode recorded.
--- OUTSIDE RECORDS SUMMARY | 2025-06-25 02:10 | XMS_ITS | Continuity of Care Document ---
Author Organization [facility] [place] Address [address] [place] [address] Care Team Providers Care Pouncer Machine Name Role Phone DARBY SINGH Primary Care Provider [phone] Assessment No assessment recorded. Plan of Treatment Reminders Order Date Submit Date Provider Last Modified By Organization Details Last Modified Time Details Appointments SURG Suction D&C 2024 01:00P Eneida QUIJANO MD Not available Not available Not available SURG POST OP 2025 02:15P Eneida QUIJANO MD Not available Not available Not available Lab None recorded . Referral None recorded . Procedures None recorded . Surgeries None recorded . Imaging None recorded . Medication Orders None recorded . Patient TargetsNo targets recorded. Patient InstructionsNo instructions recorded. Reason for Referral None Reported. Results Created Date Observation Date Name Description Value Unit Range Abnormal Flag Note LastModifiedBy Organization Detail LastModifiedTime 04/22/2004/22/2025 pregn maria c test, urine HCG negati ve Not Available [facility] [address], [place], [address], 04/22/2025 16:34:44 05/16/20 25 05/16/2025 BHCG, QUANT ITATI VE B-HCG 9767.0 mIU/m L 0.0-4. 9 high The test metho d is elect safia milum inesc ence immun oassa y perfo rmed on the Safia Devendra e801. Value s obtai rebecca with diffe rent assay metho ds by other labor atori es canno t be used inter maya eably . Refer ence Range s: Non-p regna nt, preme nopau jaden women : 0.0-4 .9 mIU/m L Postm enopa usal women : 0.0-7 .0 mIU/m L Akley l Pregn maria c: Gesta kian l Age bHCG Conc. - mIU/m L 3 Weeks 5.8 - 71.7 4 Weeks 9.5 - 750 5 Weeks 217-7 138 6 Weeks 158 - 31,79 5 7 Weeks 3,697 - 162,5 63 8 Weeks 32,06 5 - 149,5 71 9 Weeks 63,80 3 - 151,4 10 10 Weeks 46,50 9 - 186,9 77 12 Weeks 27,83 2 - 210,6 12 14 Weeks 13,95 0 - 62,53 0 15 Weeks 12,03 9 - 70,97 1 16 Weeks 9,040 - 56,45 1 17 Weeks 8,175 - 55,86 8 18 Weeks 8,099 - 58,17 6 Not Available [facility] (Lab) [address], [place], [address], 05/17/2025 04:18:33 05/16/20 25 05/16/2025 US, obste tric, trans vagin al No observ ation record ed. [email or web address] [facility] [address], [place], [address], 05/16/2025 13:00:52 05/16/20 25 05/16/2025 US, obste tric, follo w-up No observ ation record ed. [email or web address] [address] [address], [place], [address], 05/20/2025 11:32:22 06/05/20 25 06/05/2025 US, obste tric, trans vagin al No observ ation record ed. [email or web address] [address], [place], [address], 06/05/2025 16:23:37 06/05/20 25 06/05/2025 US, obste tric, trans vagin al No observ ation record ed. [email or web address] [place] [address], [place], [address], 06/08/2025 00:14:52 06/18/20 25 06/18/2025 US, obste tric, trans vagin al No observ ation record ed. [email or web address] [facility] [address], [place], [address], 06/18/2025 13:04:32 06/18/20 25 06/18/2025 US, obste tric, trans vagin al No observ ation record ed. [email or web address] [address] [address], [place], [address], 06/24/2025 22:46:38 Result Notes None recorded. Problems Name Problem SNOMED Code Status Onset Date Resolution Date Notes Provider Name and Address Organization Details Recorded Time Asthma 865481079 Active Hector Quijano MD [address], [place], [address], [facility] 4 15:10:50 Asthma 545629839 Completed Hector Quijano MD [address], [place], [address], [facility] 4 15:10:50 Marginal insertio n of umbilica l cord 93129938 Completed serial growth Michelle Witt null, [facility] 4 11:44:25 Placenta circumva llata 2445660 Completed Gabriel marvin, [facility] 4 09:51:05 Asthma in pregnanc y 1299643885 9103 Completed 2021 mild, has inhaler Gabriel marvin, [facility] 3 16:00:15 Pregnanc y 85358732 Completed 202112/10/2022 Vickie marvin, [facility] 5 13:47:46 Uterine size for dates discrepa ncy 718476828 Completed 2022 Gabriel Phillips [facility] 3 16:00:15 Pregnanc y 39138710 Completed 202310/06/2024 Vickie Rigo [facility] 5 13:47:46 Mixed anxiety and depressi ve disorder 781662201 Active 2024 Mirian Novak [facility] 5 12:52:52 Problem Notes None recorded. Procedures Surgical History Date Name Laterality Status Provider Name and Address Organization Details Recorded Time 4 IUD Insertion cancelled Jennifer Ruano [facility] 10/06/2023 15:37:22 1 procedure on hand completed Miriandmitry Novak [facility] 08/09/2022 10:18:28 1 [facility] elbow [facility] 08/09/2022 10:18:23 Imaging Results None recorded. Procedure Notes None recorded. Medical Equipment None Reported. Allergies Allergen ID Allergen Name Allergen Category Reaction Reaction Severity Criticality Documentation Date Start Date Code Code System Note Provider Name and Address Organization Details Recorded Time 39989 amoxicill in medicatio n Not available Not available Not available 04/14/2022 723 RxNorm Vanessa Matthieu [facility] 2 14:37:19 03189 povidone- iodine medicatio n rash Not available [facility] 05/20/20252017 8611 RxNorm Not Available lizandro - [...] completed Not Available Not Available Not Available Depo-French Drawer a 150 mg/mL intramuscul ar suspension Inject [...] and Address Organization Details Last Updated DateTime 05/16/2025 165.1 cm 25.8 kg/m2 39440.82 g 106/74 mm[Hg] Crystal Patton [facility] 05/16/2025 11:25:21 Social History Question Answer Notes LastModified by Organizat ion Details LastModified Time Tobacco Smoking Status Never Smoker Mirian Novak [facility] 08/09/2022 10:11:03 Do You Have An Advance Directive? No [email or web address] Information n ot available 08/09/2022 Are You Blind Or Do You Have Difficulty Seeing? No [email or web address] Information n ot available 08/09/2022 What Is Your Level Of Caffeine Consumption? Occasional [email or web address] Information not available 08/09/2022 How Much Tobacco Do You Chew? None [email or web address] Information not available 08/09/2022 In The 14 Days Before Symptom Onset, Have You Had Close Contact With A Laboratory-confirm ed COVID-19 While That Case Was Ill? No [email or web address] Information n ot available 08/09/2022 In The 14 Days Before Symptom Onset, Have You Had Close Contact With A Person Who Is Under Investigation For COVID-19 While That Person Was Ill? No [email or web address] Information not available 08/09/2022 Have You Been To An Area Known To Be High Risk For COVID-19? No [email or web address] Information not available 08/09/2022 Are You Deaf Or Do You Have Serious Difficulty Hearing? No [email or web address] Information not available 08/09/2022 What Type Of Diet Are You Following? REGULAR dpgcabzh85 Information n ot available 08/09/2022 What Is The Highest Grade Or Level Of School You Have Completed Or The Highest Degree You Have Received? IK02304-1 [email or web address] Information not available 08/09/2022 Are There Any Guns Present In Your Home? No [email or web address] Information not available 08/09/2022 Do You Use Protection During Sex? No inqprkgl98 Information not available 08/09/2022 Do You Use Your Seat Belt Or Car Seat Routinely? Yes [email or web address] Information not available 08/09/2022 Do You Have Smoke And Carbon Monoxide Detectors In Your Home? No [email or web address] Information not available 08/09/2022 How Much Tobacco Do You Smoke? No [email or web address] Information not available 08/09/2022 Do You Use Sunscreen Routinely? Yes [email or web address] Information not available 08/09/2022 Has Tobacco Cessation Counseling Been Provided? No [email or web address] Information not available 08/09/2022 Have You Used IV Drugs? Yes [email or web address] Information not available 08/09/2022 Do You Have Difficulty Walking Or Climbing Stairs? No [email or web address] Information not available 08/09/2022 Sex: Unknown Functional Status Question Answer Note LastModified by Organizat ion Details LastModified Time Do you use any illicit or recreational drugs? No Information not available 04/14/2022 Do you or have you ever used any other forms of tobacco or nicotine? No Information not available 08/09/2022 What is your level of alcohol consumption? None Information not available 04/14/2022 Are you able to walk independently without assistance or assistive devices? YESWOREST [email or web address] Information not available 08/09/2022 Are you able to care for yourself independently? Yes [email or web address] Information not available 08/09/2022 Do you have difficulty dressing, bathing, grooming, or toileting? No [email or web address] Information not available 08/09/2022 What is your exercise level? None [email or web address] Information not available 08/09/2022 Mental Status Question Answer Note LastModified by Organization D etails LastModified Time Do you feel stressed (tense, restless, nervous, or anxious, or unable to sleep at night)? [id number] [email or web address] Information not available 08/09/2022 Family History Relationship [...] ICD10 Code Diagnosis IMO Codes Diagnosis Note [id number] JEREMY Moran [facility] [address] [address] 04/22/2025 14:56:28 04/23/2025 09:10:56 Pain of breast 39302154 N64.4 68076 order given for bilateral breast u/slimit caffiene, supportive bras, avoid underwireR TC for WWE Time spent in visit is a total of 20 mins with at least 50% of visit consisting of counseling and review of plan of care. [id number] Hector Quijano MD [facility] [address] [address] 05/16/2025 10:45:40 05/16/2025 11:22:11 Uterine size for dates discrepancy 493476863 O26.841 Z3A.01 O36.80X0 7154522 [id number] Hector Quijano MD [facility] [address] [address] 05/16/2025 10:56:09 05/18/2025 08:03:12 Amenorrhea 65657141 N91.2 01661 this patient is a 24-year-ol d female who presents for amenorrhea . She has a positive test. We performed a pelvic ultrasound . She may have a missed miscarriag e. The is several weeks behind and no heartbeat is evident. There is some irregulari ty to the shape of the gestationa l sac. We will perform serial HCGs. We will follow up on those and consider her options. Patient was not excited about the . She and her are concerned about their ability to care for a child financiall y. Spent 20 minutes with the patient. We discussed miscarriag e and treatment options. We will follow up on HCG in 2 days after today's initial evaluation . I spent over 20 minutes on the patient's care in total. Health Concerns Section Related Observation LastModified by Organization Detai ls LastModified Time None Recorded Concern Status LastModified by Organization Details LastModified Time None Recorded Payers Encounter Date Sequence Insurance Name Policy Number Policy Jim Covered Member ID Jim Member ID Guarantor Name 05/16/2025 1 [facility] - DOS ON OR AFTER 20 (MEDICAID REPLACEMENT - HMO) Maricel Rosado [id number] Maricel Rosado Notes Date Note Type Note Provider Name and Address Organization Details Recorded Time 05/16/2025 text/html this patient is a 24-year-old female who presents for amenorrhea. She has a positive test. We performed a pelvic ultrasound. She may have a missed miscarriage. The is several weeks behind and no heartbeat is evident. There is some irregularity to the shape of the gestational sac. We will perform serial HCGs. We will follow up on those and consider her options. Patient was not excited about the . She and her are concerned about their ability to care for a child financially. Spent 20 minutes with the patient. We discussed miscarriage and treatment options. We will follow up on HCG in 2 days after today's initial evaluation. I spent over 20 minutes on the patient's care in total. Hector Quijano MD [address], [place], [address], [facility] 05/17/2025 17:54:32 OBGyn Episode No OBEpisode recorded.
--- OUTSIDE RECORDS SUMMARY | 2025-06-25 02:10 | XMS_ITS | Continuity of Care Document ---
Author Organization [facility] Address [address] [place] [address] Care Team Providers Care Farmworker [employer] Name Role Phone DARBY SINGH Primary Care [...] obstetric , transvagi nal 2024 025 [email or web address] [place], [facility] [address], [address], [place], [address], 06/05/2025 18:53:59 Medication Orders None recorded. Patient TargetsNo targets recorded. Patient InstructionsNo instructions recorded. Reason for Referral None Reported. Results Created Date Observation Date Name Description Value Unit Range Abnormal Flag Note LastModifiedBy Organization Detail LastModifiedTime 05/16/20 25 05/16/2025 [facility], QUANT ITATI VE [...] usal women : 0.0-7 .0 mIU/m L Kaley l Pregn maria c: Gesta kian l [...] Weeks 8,099 - 58,17 6 Not Available [facility] (Lab) [address], [place], [address], 05/17/2025 04:18:33 05/16/20 25 05/16/2025 US, obste tric, trans vagin al No observ ation record ed. [email or web address] [facility] [address], [place], [address], 05/16/2025 13:00:52 05/16/20 25 05/16/2025 US, obste tric, follo w-up No observ ation record ed. [email or web address] Cheli [address], [place], [address], 05/20/2025 11:32:22 06/05/20 25 06/05/2025 US, obste tric, trans vagin al No observ ation record ed. [email or web address] [address], [place], [address], 06/05/2025 16:23:37 06/05/20 25 06/05/2025 US, obste tric, trans vagin al No observ ation record ed. [email or web address] Cheli [address], [place], [address], 06/08/2025 00:14:52 06/18/20 25 06/18/2025 US, obste tric, trans vagin al No observ ation record ed. [email or web address] [facility] [address], [place], [address], 06/18/2025 13:04:32 06/18/20 25 06/18/2025 US, obste tric, trans vagin al No observ ation record ed. [email or web address] [address], [place], [address], 06/24/2025 22:46:38 Result Notes None recorded. Problems Name Problem SNOMED Code Status Onset Date Resolution Date Notes Provider Name and Address Organization Details Recorded Time Asthma 265988934 Active Hector Quijano MD [address], [place], [address], , P[facility] 4 15:10:50 Asthma 957667572 Completed Hector Quijano MD [address], [place], [address], , P[facility]C. 4 15:10:50 Marginal insertio n of umbilica l cord 53371241 Completed serial growth Michelle marvin, [facility] 4 11:44:25 Placenta circumva llata 8578657 Completed Gabriel marvin, [facility] 4 09:51:05 Asthma in pregnanc y 0181728156 9103 Completed 2021 mild, has inhaler Gabriel marvin, [facility] 3 16:00:15 Pregnanc y 72442599 Completed 202112/10/2022 Vickie Sierra null, [facility] 5 13:47:46 Uterine size for dates discrepangelique ncy 728738627 Completed 2022 Gabriel Phillips [facility] 3 16:00:15 Pregnanc y 81913105 Completed 202310/06/2024 Vickie Rigo [facility] 5 13:47:46 Mixed anxiety and depressi ve disorder 691340951 Active 2024 Mirian Novak [facility] 5 12:52:52 Problem Notes None recorded. Procedures Surgical History Date Name Laterality Status Provider Name and Address Organization Details Recorded Time 4 IUD Insertion cancelled Jenniferdarcie Ruano [facility] 10/06/2023 15:37:22 1 procedure on hand completed Miriandmitry Novak [facility] 08/09/2022 10:18:28 1 procedure [facility] elbow [facility] 08/09/2022 10:18:23 Imaging Results None recorded. Procedure Notes None recorded. Medical Equipment None Reported. Allergies Allergen ID Allergen Name Allergen Category Reaction Reaction Severity Criticality Documentation Date Start Date Code Code System Note Provider Name and Address Organization Details Recorded Time 33013 amoxicill in medicatio n Not available Not available Not available 04/14/2022 723 RxNorm Vanessa Matthieu [facility] 2 14:37:19 66214 povidone- iodine medicatio n rash Not available [...] completed Not Available Not Available Not Available Depo-Napper Grinder a 150 mg/mL intramuscul ar suspension Inject [...] Not Available Vitals Date Recorded Body height Provider Name an d Address Organization Details Last Updated DateTime 06/05/2025 165.1 cm Crystal Patton [facility] 06/05/2025 14:01:55 Social History Question Answer Notes LastModified by Organizat ion Details LastModified Time Tobacco Smoking Status Never Smoker Mirian marvin, [facility] 08/09/2022 10:11:03 Do You Have An Advance Directive? No [email or web address] Information n ot available 08/09/2022 Are You Blind Or Do You Have Difficulty Seeing? No [email or web address] Information n ot available 08/09/2022 What Is Your Level Of Caffeine Consumption? Occasional [email or web address] Information not available 08/09/2022 How Much Tobacco Do You Chew? None [email or web address] Information not available 08/09/2022 In The 14 Days Before Symptom Onset, Have You Had Close Contact With A Laboratory-confirm ed COVID-19 While That Case Was Ill? No [email or web address] Information n ot available 08/09/2022 In The 14 Days Before Symptom Onset, Have You Had Close Contact With A Person Who Is Under Investigation For COVID-19 While That Person Was Ill? No [email or web address] Information not available 08/09/2022 Have You Been To An Area Known To Be High Risk For COVID-19? No [email or web address] Information not available 08/09/2022 Are You Deaf Or Do You Have Serious Difficulty Hearing? No [email or web address] Information not available 08/09/2022 What Type Of Diet Are You Following? REGULAR [email or web address] Information n ot available 08/09/2022 What Is The Highest Grade Or Level Of School You Have Completed Or The Highest Degree You Have Received? [id number] [email or web address] Information not available 08/09/2022 Are There Any Guns Present In Your Home? No [email or web address] Information not available 08/09/2022 Do You Use Protection During Sex? No [email or web address] Information not available 08/09/2022 Do You Use Your Seat Belt Or Car Seat Routinely? Yes [email or web address] Information not available 08/09/2022 Do You Have Smoke And Carbon Monoxide Detectors In Your Home? No [email or web address] Information not available 08/09/2022 How Much Tobacco Do You Smoke? No [email or web address] Information not available 08/09/2022 Do You Use Sunscreen Routinely? Yes [email or web address] Information not available 08/09/2022 Has Tobacco Cessation Counseling Been Provided? No [email or web address] Information not available 08/09/2022 Have You Used IV Drugs? Yes [email or web address] Information not available 08/09/2022 Do You Have Difficulty Walking Or Climbing Stairs? No [email or web address] Information not available 08/09/2022 Sex: Unknown Functional Status Question Answer Note LastModified by Organizat ion Details LastModified Time Do you use any illicit or recreational drugs? No Information not available 04/14/2022 Do you or have you ever used any other forms of tobacco or nicotine? No [email or web address] Information not available 08/09/2022 What is your level of alcohol consumption? None Information not available 04/14/2022 Are you able to walk independently without assistance or assistive devices? YESWOREST [email or web address] Information not available 08/09/2022 Are you able to care for yourself independently? Yes Information not available 08/09/2022 Do you have difficulty dressing, bathing, grooming, or toileting? No [email or web address] Information not available 08/09/2022 What is your exercise level? None [email or web address] Information not available 08/09/2022 Mental Status Question Answer Note LastModified by Organization D etails LastModified Time Do you feel stressed (tense, restless, nervous, or anxious, or unable to sleep at night)? [id number] [email or web address] Information not available 08/09/2022 Family History Relationship Description Onset Age of this Age Resolved Age Notes LastModified by Organization Details LastModified Time Mother Asthma [email or web address] Not available 14:38:15 Mother Anxiety disorder [email or web address] Not available 2021 14:38:24 Sister Asthma [email or web address] Not available 14:38:15 Brother Asthma [email or web address] Not available 1 14:38:15 Medical History Condition Response Other Y Blood Transfusion N Dermatologic Disorders N Gestational Diabetes N Anxiety Disorder N Autoimmune disease N Arthritis N Polyps N Infertility N Acid Reflux (GERD) N Cancer N Varicosities N Stroke N Neurologic/Epilepsy N Fibromyalgia N Headaches N Kidney Disease N Heart Problems N Kidney or Bladder Problems N Eating Disorder N Art (IVF or FET) N Hepatitis/Liver Disease N No Past Medical History N Urinary Tract Infection N Asthma Y Trauma/Violence N Thrombophilias N Allergies (Food, seasonal, environmental ) Y Breast Cancer N Drug/Latex Allergies/Reactions N Lung Disease N Defects or Inherited Disease N Breast Problem N Hematologic disorders N Anesthesia Complications N History of STI N Deep Vein Thrombosis N Polycystic ovary syndrome N History of abnormal pap N Endometriosis N High Cholesterol N Thyroid Problems N GI Problems N Anemia N Psychiatric Illness N Ovarian Cancer N Diabetes N Pulmonary (TB, Asthma) N Eczema N Abuse/Domestic Violence N Depression/ depression Y Heart Disease N Pre-Eclampsia N Hypertension N Osteoporosis N Gynecological History Statement/Question Response Abnormal Pap [...] ICD10 Code Diagnosis IMO Codes Diagnosis Note [id number] Hector Quijano MD [facility] [address] [address] 05/16/2025 10:45:40 05/16/2025 11:22:11 Uterine size for dates discrepancy 659494305 O26.841 Z3A.01 O36.80X0 [id number] Hector Quijano MD [facility] [address] [address] 05/16/2025 10:56:09 05/18/2025 08:03:12 Amenorrhea 38490941 N91.2 29934 this patient is a 24-year-ol d female [...] minutes on the patient's care in total. [id number] Hector Quijano MD [facility] [address] [address] 06/05/2025 13:28:58 06/05/2025 14:43:27 Missed miscarriage 76966741 O02.1 84745 This patient is a 24 female who [...] 30 minutes on her care in total. [id number] Hector Quijano MD [facility] [address] [address] 06/05/2025 13:27:36 06/05/2025 14:08:05 Missed miscarriage 97466643 O02.1 Z3A.01 32969 Health Concerns Section Related Observation LastModified by Organization Detai ls LastModified Time None Recorded Concern Status LastModified by Organization Details LastModified Time None Recorded Payers Encounter Date Sequence Insurance Name Policy Number Policy Jim Covered Member ID Jim Member ID Guarantor Name 06/05/2025 1 [facility] - DOS ON OR AFTER 20 (MEDICAID REPLACEMENT - HMO) Maricel Rosado [id number] Maricel Rosado Notes Date Note Type Note Provider Name and Address Organization Details Recorded Time 06/05/2025 text/html This patient is a 24 female who presents for [missed discussed the etiology, frequency, natural history, and treatment of this condition. Spent more than 35 minutes talking about the above, as well as, her history, the particular findings of her case, and detail of her the treatment options. We discussed the risk benefits of each option. She understands the risk include infection and hemorrhage. She understands a D&C also holds the risk of injury. She understands that waiting can result in a septic that is even more difficult to treat. We talked about signs and symptoms of infection. have elected to use Cytotec. She was given precautions and instructions. She is given risks, benefits, and alternatives. She will return in 1 week. Hector Quijano MD [address], [place], [address], [place] [facility] 06/05/2025 14:43:23 OBGyn Episode No OBEpisode recorded.
--- OUTSIDE RECORDS SUMMARY | 2025-06-25 02:10 | XMS_ITS | Continuity of Care Document ---
Author Organization [facility] Address [address] [place] [address] Care Team Providers Care Motorcycle Builder Name Role Phone DARBY SINGH Primary Care Provider [phone] Assessment No assessment recorded. Plan of Treatment [...] . Imaging None recorded . Medication Orders Cytotec 200 mcg tablet 2024 025 [id number], [address] [place], [place], [id number], 06/05/2025 14:42:57 Patient TargetsNo targets recorded. Patient InstructionsNo instructions [...] Weeks 8,099 - 58,[address] [facility] (Lab) [address], [place], [address], 05/17/2025 04:18:33 05/16/20 25 05/16/2025 US, obste tric, trans vagin al No observ ation record ed. [email or web address] [facility] [address], [place], [address], 05/16/2025 13:00:52 05/16/20 25 05/16/2025 US, obste tric, follo w-up No observ ation record ed. [email or web address] [address] [address], [place], [address], 05/20/2025 11:32:22 06/05/20 25 06/05/2025 US, obste tric, trans vagin al No observ ation record ed. [email or web address] [address], [place], [address], 06/05/2025 16:23:37 06/05/20 25 06/05/2025 US, obste tric, trans vagin al No observ ation record ed. [email or web address] Cheli [address], [place], [address], 06/08/2025 00:14:52 06/18/20 25 06/18/2025 US, obste tric, trans vagin al No observ ation record ed. [email or web address] [facility] [address], [place], [address], 06/18/2025 13:04:32 06/18/20 25 06/18/2025 US, obste tric, trans vagin al No observ ation record ed. [email or web address] [place] [address], [place], [address], 06/24/2025 22:46:38 Result Notes None recorded. Problems Name Problem SNOMED Code Status Onset Date Resolution Date Notes Provider Name and Address Organization Details Recorded Time Asthma 912241099 Active Hector Quijano MD [address], [place], [address], [facility] 4 15:10:50 Asthma 351819477 Completed Hector Quijano MD [address], [place], [address], [facility] 4 15:10:50 Marginal insertio n of umbilica l cord 19518394 Completed serial growth Michelle marvin, [facility] 4 11:44:25 Placenta circumva llata 3981591 Completed Gabriel marvin, [facility] 4 09:51:05 Asthma in pregnanc y 9627113646 9103 Completed 2021 mild, has inhaler Gabriel marvin, [facility] 3 16:00:15 Pregnanc y 84967786 Completed 202112/10/2022 Vickie Sierra null, [facility] 5 13:47:46 Uterine size for dates discrepangelique ncy 810989730 Completed 2022 Gabriel Phillips [facility] 3 16:00:15 Pregnanc y 85562049 Completed 202310/06/2024 Vickie Rigo [facility] 5 13:47:46 Mixed anxiety and depressi ve disorder 742131001 Active 2024 Mirian Novak [facility] 5 12:52:52 Problem Notes None recorded. Procedures Surgical History Date Name Laterality Status Provider Name and Address Organization Details Recorded Time 4 IUD Insertion cancelled Jenniferdarcie Ruano [facility] 10/06/2023 15:37:22 1 procedure on hand completed Miriandmitry Novak [facility] 08/09/2022 10:18:28 1 procedure on elbow [facility] 08/09/2022 10:18:23 Imaging Results None recorded. Procedure Notes None recorded. Medical Equipment None Reported. Allergies Allergen ID Allergen Name Allergen Category Reaction Reaction Severity Criticality Documentation Date Start Date Code Code System Note Provider Name and Address Organization Details Recorded Time 29002 amoxicill in medicatio n Not available Not available Not available 04/14/2022 723 RxNorm Vanessa Matthieu [facility] 2 14:37:19 48754 povidone- iodine medicatio n rash Not available [...] completed Not Available Not Available Not Available Depo-Mold Closer Helper a 150 mg/mL intramuscul ar suspension Inject [...] Updated DateTime 06/05/2025 165.1 cm Crystal Patton [facility] 06/05/2025 14:01:55 Social History Question Answer Notes LastModified by Organizat ion Details LastModified Time Tobacco Smoking Status Never Smoker Mirian marvin, [facility] 08/09/2022 10:11:03 Do You Have An Advance Directive? No [email or web address] Information n ot available 08/09/2022 Are You Blind Or Do You Have Difficulty Seeing? No Information n ot available 08/09/2022 What Is Your Level Of Caffeine Consumption? Occasional Information not available 08/09/2022 How Much Tobacco Do You Chew? None [email or web address] Information not available 08/09/2022 In The 14 Days Before Symptom Onset, Have You Had Close Contact With A Laboratory-confirm ed COVID-19 While That Case Was Ill? No [email or web address] Information n ot available 08/09/2022 In The 14 Days Before Symptom Onset, Have You Had Close Contact With A Person Who Is Under Investigation For COVID-19 While That Person Was Ill? No Information not available 08/09/2022 Have You Been To An Area Known To Be High Risk For COVID-19? No [email or web address] Information not available 08/09/2022 Are You Deaf Or Do You Have Serious Difficulty Hearing? No [email or web address] Information not available 08/09/2022 What Type Of Diet Are You Following? REGULAR [email or web address] Information n ot available 08/09/2022 What Is The Highest Grade Or Level Of School You Have Completed Or The Highest Degree You Have Received? QR70485-3 ilmwbniv37 Information not available 08/09/2022 Are There Any Guns Present In Your Home? No tlgsdmpy69 Information not available 08/09/2022 Do You Use Protection During Sex? No [email or web address] Information not available 08/09/2022 Do You Use Your Seat Belt Or Car Seat Routinely? Yes Information not available 08/09/2022 Do You Have Smoke And Carbon Monoxide Detectors In Your Home? No [email or web address] Information not available 08/09/2022 How Much Tobacco Do You Smoke? No [email or web address] Information not available 08/09/2022 Do You Use Sunscreen Routinely? Yes lbphdohz17 Information not available 08/09/2022 Has Tobacco Cessation Counseling Been Provided? No [email or web address] Information not available 08/09/2022 Have You Used IV Drugs? Yes [email or web address] Information not available 08/09/2022 Do You Have Difficulty Walking Or Climbing Stairs? No [email or web address] Information not available 08/09/2022 Sex: Unknown Functional Status Question Answer Note LastModified by Organizat ion Details LastModified Time Do you use any illicit or recreational drugs? No Information not available 04/14/2022 Do you or have you ever used any other forms of tobacco or nicotine? No [email or web address] Information not available 08/09/2022 What is your level of alcohol consumption? None Information not available 04/14/2022 Are you able to walk independently without assistance or assistive devices? YESWOREST [email or web address] Information not available 08/09/2022 Are you able to care for yourself independently? Yes [email or web address] Information not available 08/09/2022 Do you have difficulty dressing, bathing, grooming, or toileting? No [email or web address] Information not available 08/09/2022 What is your exercise level? None [email or web address] Information not available 08/09/2022 Mental Status Question Answer Note LastModified by Organization D etails LastModified Time Do you feel stressed (tense, restless, nervous, or anxious, or unable to sleep at night)? [id number] [email or web address] Information not available 08/09/2022 Family History Relationship [...] ICD10 Code Diagnosis IMO Codes Diagnosis Note [id number] Hector Quijano MD [facility] [address] [address] 05/16/2025 10:45:40 05/16/2025 11:22:11 Uterine size for dates discrepancy 376410294 O26.841 Z3A.01 O36.80X0 2740550 [id number] Hector Quijano MD [facility] [address] [address] 05/16/2025 10:56:09 05/18/2025 08:03:12 Amenorrhea 95571647 N91.2 60507 this patient is a 24-year-ol d female [...] minutes on the patient's care in total. [id number] Hector Quijano MD [facility] [address] [address] 06/05/2025 13:28:58 06/05/2025 14:43:27 Missed miscarriage 49746554 O02.1 87635 This patient is a 24 female who [...] 30 minutes on her care in total. [id number] Hector Quijano MD [facility] [address] [address] 06/05/2025 13:27:36 06/05/2025 14:08:05 Missed miscarriage 40746667 O02.1 Z3A.01 25439 Health Concerns Section Related Observation LastModified by Organization Detai ls LastModified Time None Recorded Concern Status LastModified by Organization Details LastModified Time None Recorded Payers Encounter Date Sequence Insurance Name Policy Number Policy Jim Covered Member ID Jim Member ID Guarantor Name 06/05/2025 1 [facility] - DOS ON OR AFTER 20 (MEDICAID REPLACEMENT - HMO) Maricel Rosado [id number] Maricel Rosado Notes Date Note Type Note [...] week. Hector Quijano MD [address], [place], [address], [place] [facility] 06/05/2025 14:43:23 OBGyn Episode No OBEpisode recorded.
--- OUTSIDE RECORDS SUMMARY | 2025-06-25 02:11 | XMS_ITS | Data Portability ---
Author Organization [facility] ELSYPallaviia Keith Address [address] [place] [address] Care Team Providers Care Certified Emergency Vehicle Technician Name Role Phone DARBY SINGH Primary Care Provider Unavailabl e Assessment Encounter Date Assessment Date Assessment LastModified by Organization Details LastModified Time 01/13/2022 01/13/2022 KEVIN Escobar Not available 01/13/2022 15:56:43 03/05/2022 03/05/2022 Starla BROWN Not available 03/05/2022 16:39:21 Plan of Treatment Reminders Order Date Submit Date Provider Last Modified By Organization Details Last Modified Time Details Appointments None recorded. Lab test, urine 2021 022 [email or web address] In-Office Order, Internal Use Only DO Not Attach Compendium DO Not Attach Compendium, Do Not Delete/merge, [id number] 10:17:26 HCG, intact + beta subunit, quant, serum or plasma 2021 022 E[facility]EL [facility], [address] [facility], [address], [place], [address], 08:14:50 progestero ne, serum 2021 022 EZEKIEL [facility], [address] [facility], [address], [place], [address], 08:14:49 Mycobacter ium tuberculos is stimulated gamma interferon , qual, blood 2021 PAYNE [facility], [address] [facility], [address], [place], [address], 06:11:37 test, urine 2021 PAYNE In-Office Order, Internal Use Only DO Not Attach Compendium DO Not Attach Compendium, Do Not Delete/merge, [id number] 16:12:00 Referral dermatolog ist referral - Hx of eczema, seems to be spreading per patient, interested in other tx options 2021 [email or web address] Not available 09:52:42 orthopedic surgeon referral - Left knee pain after popping/lo cking sensation at work a few weeks ago, no trauma to the knee. Knee giving out on patient and locking up. Possible petallar instabilit y 2021 [facility], [address] [place], [address], 15:26:18 physical therapist referral - Left knee pain after popping/lo cking sensation at work a few weeks ago, no trauma to the knee. Knee giving out on patient and locking up. Possible petallar instabilit y 2021 [facility], [address] [place], [address], 16:10:40 Procedures None recorded. Surgeries None recorded. Imaging XR, knee, 3 view - Patellar instabilit y [address] [facility] ([facility]), [address] [place], [address], 15:18:48 Medication Orders 28 mg iron-800 mcg tablet 2021 PAYNE [facility], [address], [place], [id number], 09:50:55 pyridoxine (vitamin B6) 25 mg tablet 2021 [facility] #92656, [address], [place], [place], [id number], 12:16:13 triamcinol one acetonide 0.1 % topical cream 2021 [facility] #03319, [address], [place], [place], [id number], 15:25:32 omeprazole 20 mg capsule,de layed release [address] [facility] [address] [facility]32, [address] [place], [id number], 18:58:57 ondansetro n HCl 8 mg tablet 2021 022 [facility]55530, [address] [place], [place], [id number], 14:36:56 sucralfate 1 gram tablet 2021 022 [facility] #49805, [address] [place], [place], [id number], 14:36:53 triamcinol one acetonide 0.1 % topical cream 2021 022 [facility] #57205, [address] [place], [place], [id number], 16:09:37 diclofenac sodium 75 mg tablet,del ayed release [address] [facility] [address] [facility]85568, [address] , [place], [place], [id number], 14:57:21 Patient TargetsNo targets recorded. Patient Instructions Encounter Date Encounter Id Patient Instructions Last Modified By Organization Details Last Modified Time 11/17/2021 [id number] knee pain or injury: care instructions Not available 11/17/2021 15:55:54 03/05/2022 [id number] viral respirator y infection: care instructions Not available 03/05/2022 15:22:33 saline nasal washes: care instructions Not available 03/05/2022 15:22:33 03/24/2022 [id number] weeks 6 to 10 of your : care instructions Not available 03/24/2022 09:51:23 managing morning sickness: care instructions Not available 03/24/2022 09:51:23 exercise during : care instructions Not available 03/24/2022 09:51:23 precautions: care instructions Not available 03/24/2022 09:51:24 nutrition during : care instructions Not available 03/24/2022 09:51:24 learning about when to call your doctor during (up to 20 weeks) Not available 03/24/2022 09:51:23 Reason for Referral Orthopedic Surgeon Referral for Pain of left knee joint Left knee pain after popping/locking sensation at work a few weeks ago, no trauma to the knee. Knee giving out on patient and locking up. Possible petallar instability Referring Physician: Darby Singh Chief Program Officer, Encounter Date: 11/17/2021 Physical Therapist Referral for Pain of left knee joint Left knee pain after popping/locking sensation at work a few weeks ago, no trauma to the knee. Knee giving out on patient and locking up. Possible petallar instability Referring Physician: [facility], Encounter Date: 11/17/2021 Audit Associate Referral for A topic dermatitis Hx of eczema, seems to be spreading per patient, interested in other tx options Referring Physician: Darby [place], Chief Program Officer, Encounter Date: 01/13/2022 Results Created Date Observation Date Name Description Value Unit Range Abnormal Flag Note LastModifiedBy Organization Detail LastModifiedTime 01/14/20 22 01/13/2022 pregn maria c test, urine HCG negati ve Not Available In-Office Order Internal Use Only DO Not Attach Compendium DO Not Attach Compendium, Do Not Delete/merge, [id number] 01/13/2022 15:47:06 02/09/20 22 02/09/2022 HCG,B ETA SUBUN IT, QNT HCG,beta subunit,qnt, serum <1 mIU/m L Femal e (Non- pregn ant) 0 - 5 (Post menop ausal ) 0 - 8 Femal e (Preg nant) Weeks of Gesta tion 3 6 - 71 4 10 - 750 5 378 - 3545 6 158 - 36129 7 8957 -6668 63 8 43085 -6765 71 9 80211 -2584 10 10 47612 -7338 77 12 16582 -9352 12 14 82089 - 87592 15 86183 - 30436 16 3014 - 13762 17 0908 - 59084 18 [phone] - [phone] Elina ECLIA metho dolog y Not Available [facility] ([facility]) [address] [place], [address], 02/09/2022 04:07:49 02/09/20 22 02/09/2022 PROGE STERO NE progesterone 9.7 NG/mL Folli cular phase 0.1 - 0.9 Lutea l phase 1.8 - 23.9 Ovula tion phase 0.1 - 12.0 Pregn ant First trime ster 11.0 - 44.3 Secon d trime ster 25.4 - 83.3 Third trime ster 58.7 - 214.0 Postm enopa usal 0.0 - 0.1 Not Available [facility] ([facility]) [address] [place], [address], 02/09/2022 04:07:49 03/05/20 22 03/06/2022 QUANT IFERO N-TB GOLD PLUS quantiferon incubation Incuba tion perfor med. Not Available [facility] ([facility]) [address] [place], [address], 03/10/2022 06:11:37 03/05/20 22 03/06/2022 QUANT IFERO N-TB GOLD PLUS quantiferon criteria Commen t Quant iFERO N-TB Gold Plus is a quali tativ e indir ect test for M tuber culos is infec tion (incl uding disea se) and is inten ded for use in conju nctio n with risk asses sment , radio graph y, and other medic al and diagn ostic evalu ation s. The Quant iFERO N-TB Gold Plus resul t is deter mined by subtr actin g the Nil value from eithe r TB antig en (Ag) value . The Mitog en tube serve s as a contr ol for the test. Not Available [facility] ([facility]) [address], [place], [address], 03/10/2022 06:11:37 03/05/20 22 03/09/2022 QUANT IFERO N-TB GOLD PLUS quantiferon TB1 Ag value 0.00 IU/mL Not Available [facility] ([facility]) [address] [place], [address], 03/10/2022 06:11:37 03/05/20 22 03/09/2022 QUANT IFERO N-TB GOLD PLUS quantiferon TB2 Ag value 0.00 IU/mL Not Available [facility] ([facility]) [address] [place], [address], 03/10/2022 06:11:37 03/05/20 22 03/09/2022 QUANT IFERO N-TB GOLD PLUS quantiferon nil value 0.00 IU/mL Not Available [facility] ([facility]) [address] [place], [address], 03/10/2022 06:11:37 03/05/20 22 03/09/2022 QUANT IFERO N-TB GOLD PLUS quantiferon mitogen value >10.00 IU/mL Not Available [facility] ([facility]) [address], [place], [address], 03/10/2022 06:11:37 03/05/20 22 03/09/2022 QUANT IFERO N-TB GOLD PLUS quantiferon- TB gold plus Negati ve negati ve No respo nse to Eneida diallo is antig ens detec tyrone. Infec tion with Eneida diallo is is unlik andres, but high risk indiv idual s shoul d be consi dered for addit ional testi ng (ATS/ IDSA/ CDC Clini gerardo Pract ice Guide lines , 2017) . The refer ence range is an Antig en minus Nil resul t of <0.35 IU/mL . Chemi lumin escen ce immun oassa y metho dolog y Not Available [facility] ([facility]) [address], [place], [address], 03/10/2022 06:11:37 03/24/20 22 03/25/2022 PROGE STERO NE progesterone 15.2 NG/mL Folli cular phase 0.1 - 0.9 Lutea l phase 1.8 - 23.9 Ovula tion phase 0.1 - 12.0 Pregn ant First trime ster 11.0 - 44.3 Secon d trime ster 25.4 - 83.3 Third trime ster 58.7 - 214.0 Postm enopa usal 0.0 - 0.1 Not Available [facility] ([facility]) [address], [place], [address], 03/25/2022 08:14:49 03/24/2003/25/2022 HCG,B ETA SUBUN IT, QNT HCG,beta subunit,qnt, serum 801 mIU/m L Femal e (Non- pregn ant) 0 - 5 (Post menop ausal ) 0 - 8 Femal e (Preg nant) Weeks of Gesta tion 3 6 - 71 4 10 - 750 5 537 - 4746 6 553 - 91456 7 2057 -9831 63 8 92373 -1495 71 9 86849 -1514 10 10 60464 -1012 77 12 77650 -4208 12 14 46017 - 87065 15 76442 - 03242 16 3471 - 16117 17 2278 - 51796 18 8422 - 84922 Elina ECLIA metho dolog y Not Available [facility] ([facility]) [address], [place], [address], 03/25/2022 08:14:50 03/24/20 22 03/24/2022 pregn maria c test, urine HCG positi ve Not Available In-Office Order Internal Use Only DO Not Attach Compendium DO Not Attach Compendium, Do Not Delete/merge, [id number] 03/24/2022 09:49:58 11/26/19 22 11/25/2021 XR, knee, 3 view No observ ation record ed. [email or web address] [facility] [address] [place], [address], 11/26/2021 11:35:56 12/06/19 22 12/04/2021 MRI, knee, w/o contr ast No observ ation record ed. [facility] [address] [place], [address], 12/07/2021 08:33:54 11/14/19 24 11/14/2023 XR, foot No observ ation record ed. [email or web address] [facility] [address] [place], [address], 11/14/2023 14:52:56 12/18/19 24 12/17/2023 CT, abdom en + pelvi s, w/ contr ast No observ ation record ed. [email or web address] [facility] [address] [place], [address], 01/03/2024 14:25:57 05/03/20 25 05/03/2025 , daily mcgrath No observ ation record ed. [email or web address], [place], [address], 05/06/2025 10:47:15 Result Notes None recorded. 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 Please review these documents and add these problems to the patient's chart manually as needed. Problem Notes None recorded. Procedures Surgical History Date Name Laterality Status Provider Name and Address Organization Details Recorded Time 09/19/19 22 Control Implant Removal completed EDINSON SPENCER Attn: Accounting,[address] [place], [address], [facility] 09/18/2021 12:50:37 12/12/19 20 Control Implant Replacement completed EDINSON SPENCER Attn: Accounting,[address] [place], [address], [facility] 12/12/2019 14:47:19 01/12/20 17 Control Implant Insertion completed Saniya Mauro PA-C Attn: Accounting,[address] [place], [address], [place] [facility] 01/11/2017 09:19:57 Imaging Results None recorded. Procedure Notes None recorded. Medical Equipment None Reported. Allergies Allergen ID Allergen Name Allergen Category Reaction Reaction Severity Criticality Documentation Date Start Date Code Code System Note Provider Name and Address Organization Details Recorded Time 132386 amoxicill in medicatio n rash Not available Not available 03/07/2019 723 RxNorm JUANPABLO Dam[place], [place] - [facility] 9 09:47:05 Medications Name Sig Start Date Stop Date Status Note LastModified by Organization Details LastModified Time celecoxib 200 mg capsule TAKE 1 CAPSULE BY MOUTH EVERY DAY 01/13 completed Not Available Not Available Not Available cyclobenzap rine 10 mg tablet 12/11 completed Not Available Not Available Not Available prednisone 10 mg tablet 01/13 completed Not Available Not Available Not Available Vitamin B-6 25 mg tablet Take 1 tablet 3 times a day by oral route as needed for 30 days. active Not Available Not Available No t Available cetirizine 10 mg tablet TAKE 1 TABLET BY MOUTH EVERY DAY DIRECTED active Not Available Not Available No t Available ibuprofen 800 mg tablet TAKE 1 TABLET BY MOUTH THREE TIMES DAILY FOR 10 DAYS DIRECTED 09/18 completed Not Available Not Available Not Available hydrocodone 5 mg-acetamin ophen 325 mg tablet TAKE 1 TABLET BY MOUTH EVERY 6 HOURS NEEDED FOR PAIN 09/18 completed Not Available Not Available Not Available ondansetron HCl 8 mg tablet Take 1 tablet 3 times a day by oral route as needed for 5 days. 03/05 completed Not Available Not Available Not Available sucralfate 1 gram tablet Take 1 tablet 4 times a day by oral route as directed for 7 days. 03/05 completed Not Available Not Available Not Available prednisone 20 mg tablet 12/11 completed Not Available Not Available Not Available triamcinolo ne acetonide 0.1 % topical cream APPLY THIN LAYER TOPICALLY TO THE AFFECTED AREA TWICE DAILY FOR 7 TO 10 DAYS active Not Available Not Available No t Available Tessalon Perles 100 mg capsule Take 1 capsule 3 times a day by oral route as needed for 7 days. 02/25 completed Not Available Not Available Not Available cephalexin 500 mg capsule TAKE 1 CAPSULE BY MOUTH EVERY 6 HOURS FOR 7 DAYS DIRECTED active Not Available Not Available No t Available pantoprazol e 40 mg tablet,fernando yed release TAKE 1 TABLET BY MOUTH ONCE DAILY 12/31 completed Not Available Not Available Not Available triamcinolo ne acetonide 0.1 % topical ointment Apply 1 applicati on twice a day by topical route as needed for 7 days. 09/18 completed Not Available Not Available Not Available buspirone 10 mg tablet TAKE 1 TABLET BY MOUTH TWICE DAILY DIRECTED 09/18 completed Not Available Not Available Not Available promethazin e 25 mg tablet TAKE ONE-HALF TABLET BY MOUTH EVERY 6 HOURS NEEDED FOR NAUSEA 02/04 completed Not Available Not Available Not Available omeprazole 20 mg capsule,del ayed release Take 1 capsule every day by oral route in the morning for 30 days. active Not Available Not Available No t Available diclofenac sodium 75 mg tablet,fernando yed release Take 1 tablet twice a day by oral route with meals for 30 days. 01/13 completed Not Available Not Available Not Available montelukast 10 mg tablet TAKE 1 TABLET BY MOUTH EVERY DAY DIRECTED active Not Available Not Available No t Available hydroxyzine HCl 25 mg tablet 11/03 completed Not Available Not Available Not Available methylpredn isolone 4 mg tablets in a dose pack TAKE DIRECTED 08/20 completed Not Available Not Available Not Available albuterol sulfate HFA 90 mcg/actuati on aerosol inhaler INHALE 2 PUFFS BY MOUTH EVERY 4 HOURS NEEDED active Not Available Not Available No t Available cefdinir 300 mg capsule TAKE 1 CAPSULE BY MOUTH EVERY 12 HOURS FOR 7 DAYS DIRECTED 02/25 completed Not Available Not Available Not Available fluticasone propionate 50 mcg/actuati on nasal spray,suspe nsion SHAKE LIQUID AND USE 1 SPRAY IN EACH NOSTRIL EVERY DAY FOR 14 DAYS DIRECTED 09/18 completed Not Available Not Available Not Available medroxyprog esterone 150 mg/mL intramuscul ar suspension ADMINISTE R 1 ML IN THE MUSCLE EVERY 3 MONTHS active Not Available Not Available No t Available doxycycline hyclate 100 mg tablet TK 1 T PO BID FOR 7 DAYS UTD 06/26 completed Not Available Not Available Not Available Os-Gerardo 500 + D3 500 mg-5 mcg (200 unit) tablet Take 1 tablet by mouth twice daily active Not Available Not Available No t Available cyclobenzap rine 5 mg tablet Take 1 tablet every day by oral route as needed for 7 days. 12/11 completed Not Available Not Available Not Available nitrofurant oin monohydrate /macrocryst als 100 mg capsule TAKE 1 CAPSULE BY MOUTH EVERY 12 HOURS FOR 5 DAYS DIRECTED 09/03 completed Not Available Not Available Not Available Calcium 500 With D 500 mg-10 mcg (400 unit) tablet Take 1 tablet twice a day by oral route as directed for 100 days. 12/17 completed Not Available Not Available Not Available Maalox Advanced 11/03 completed Not Available Not Available Not Available Calcium with Vitamin D 600 mg-10 mcg (400 unit) tablet Take 1 tablet twice a day by oral route as directed for 50 days. 02/25 completed Not Available Not Available Not Available Rulox 200 mg-200 mg-20 mg/5 mL oral suspension 11/03 completed Not Available Not Available Not Available Nexplanon 68 mg subdermal implant Inject 1 implant by subcutane ous route. 09/18 completed Not Available Not Available Not Available Metamucil Sugar-Free (aspartame) 3.4 gram/5.8 gram oral powder Take 3.4 g every day by oral route as directed for 30 days. 02/25 completed Not Available Not Available Not Available 28 mg iron-800 mcg tablet TAKE 1 TABLET BY MOUTH EVERY DAY DIRECTED active Not Available Not Available No t Available Xulane 150 mcg-35 mcg/24 hr transdermal patch APPLY 1 PATCH EXTERNALL Y TO THE SKIN EVERY WEEK 09/18 completed Not Available Not Available Not Available Vitals Date Recorded Body height Body mass index (BMI) [Percentile] Per age and sex Body mass index (BMI) Body weight Heart rate Body temperature Oxygen saturation Systolic And Diastolic Provider Name and Address Organization Details Last Updated DateTime 2 165.1 cm 70 % 23.5 kg/m2 88597.3 2 g 71 /min 98.9 [degF] 99 % 106/76 mm[Hg] Adrienne Ramos MA [place] - [facility] 2 12:07:29 Date Recorded Body height Body mass index (BMI) [Percentile] Per age and sex Body mass index (BMI) Body weight Heart rate Body temperature Oxygen saturation Systolic And Diastolic Provider Name and Address Organization Details Last Updated DateTime 2 165.1 cm 55 % 22 kg/m2 12636.9 9 g 95 /min 98.5 [degF] 100 % 104/68 mm[Hg] Adrienne Ramos MA [facility] 2 15:02:29 Date Recorded Body height Body mass index (BMI) [Percentile] Per age and sex Body mass index (BMI) Body weight Heart rate Body temperature Oxygen saturation Systolic And Diastolic Provider Name and Address Organization Details Last Updated DateTime 2 165.1 cm 57 % 22.2 kg/m2 87070.5 9 g 97 /min 98.2 [degF] 98 % 102/68 mm[Hg] Adrienne Ramos MA [facility] 2 14:45:41 Date Recorded Body height Body mass index (BMI) [Percentile] Per age and sex Body mass index (BMI) Body weight Heart rate Body temperature Oxygen saturation Systolic And Diastolic Provider Name and Address Organization Details Last Updated DateTime 2 165.1 cm 56 % 22.1 kg/m2 28059.7 9 g 74 /min 98.1 [degF] 96 % 102/74 mm[Hg] Adrienne Ramos MA [facility] 2 09:41:15 Social History Question Answer Notes LastModified by Organizat ion Details LastModified Time Tobacco Smoking Status Never Smoker Saniya Mauro PA-C Attn: Accounting,[address] [place], [address], [facility] 02/01/2017 13:59:39 What Is Your Level Of Caffeine Consumption? None Information not available 04/14/2018 In The 14 Days Before Symptom Onset, Have You Had Close Contact With A Laboratory-confirm ed COVID-19 While That Case Was Ill? No Information n ot available 09/18/2021 In The 14 Days Before Symptom Onset, Have You Had Close Contact With A Person Who Is Under Investigation For COVID-19 While That Person Was Ill? No Information not available 09/18/2021 Have You Been To An Area Known To Be High Risk For COVID-19? No Information not available 09/18/2021 What Type Of Diet Are You Following? REGULAR Information n ot available 04/14/2018 Have There Been Any Changes To Your Family Or Social Situation? No Information no t available 04/14/2018 What Is Your Home Situation? Both Parents Information not available 04/14/2018 Parent Involvement? Both Parents Involved Information not available 04/14/2018 What Was The Date Of Your Most Recent Tobacco Screening? 01/13/2022 Information not available 01/13/2022 How Many Children Do You Have? 1 [email or web address] Information not available 11/29/2022 What Is Your Parents' Marital Status? Information not available 04/14/2018 Do You Use Protection During Sex? Always Information not available 04/14/2018 What Is The Name Of Your School? [employer] Information not available 04/14/2018 Are You Sexually Active? No Information not available 04/14/2018 Number Of Sexual Partners 1 Information not available 04/14/2018 Do You Have Any Siblings? 4 Information not available 04/14/2018 Do You Have Smoke And Carbon Monoxide Detectors In Your Home? Yes Information not available 04/14/2018 Are You Passively Exposed To Smoke? Yes Information no t available 04/14/2018 How Much Tobacco Do You Smoke? No Information not available 05/20/2020 On What Date Was Tobacco Cessation Counseling Provided? 09/18/2021 Information not available 09/18/2021 Year In School 11 Informat[employer] not available 03/07/2019 Sex: Female Functional Status Question Answer Note LastModified by Organizat ion Details LastModified Time What is your level of alcohol consumption? None Information not available 04/14/2018 Do you or have you ever used smokeless tobacco? Never used smokeless tobacco Information not available 05/20/2020 Are you currently employed? Yes Information not available 09/18/2021 Do you or have you ever used e-cigarettes or vape? Never used electronic cigarettes Information not available 05/20/2020 What is your exercise level? Heavy Information not available 04/14/2018 Mental Status None recorded. Family History Relationship Description Onset Age of this Age Resolved Age Notes LastModified by Organization Details LastModified Time Father No current problems or disability [email or web address] Not available 03/07 09:47:27 Mother No current problems or disability [email or web address] Not available 03/07 09:47:27 Medical History No medical history recorded. Gynecological History Statement/Question Response Flow Heavy Date of LMP 01/13/2022 Menses Monthly Y Age at Menarche 12 Current Control Method None Age at First Child 22 LMP Definite Obstetrics History GPAL:G 0 P 1 0 0 1 Type Value Full Term 1 Living 1 Immunizations Vaccine Type Date Status Note Provider Nam e and Address Organization Details Recorded Time COVID-19, mRNA, LNP-S, PF, 30 mcg/0.3 mL dose 2 completed Not Available [facility] 06/01/2022 05:27:18 HPV9 7 completed Not Available [facility] 07/14/2019 02:33:53 Hep A, ped/adol, 2 dose 7 completed Not Available [facility] 07/14/2019 02:34:19 HPV9 8 completed Not Available [facility] 07/14/2019 02:43:06 Hep A, ped/adol, 2 dose 8 completed Not Available [facility] 07/14/2019 02:47:52 meningococcal B, OMV 9 completed Not Available [facility] 07/14/2019 02:37:40 meningococcal MCV4P 9 completed Not Available [facility] 07/14/2019 02:37:40 meningococcal B, OMV 9 completed Not Available [facility] 07/14/2019 02:40:19 Influenza, split virus, quadrivalent, preservative 2 completed Adrienne Ramos MA null, [place] - [facility] 07/22/2021 15:31:47 COVID-19, mRNA, LNP-S, PF, 30 mcg/0.3 mL dose, gisele-sucrose 2 completed Ally Gabriel MA null, [place] - [facility] 03/31/2022 15:53:18 DTaP 3 completed Not Available [facility] 06/01/2022 05:27:18 DTaP 3 completed Not Available [facility] 06/01/2022 05:27:18 DTaP 3 completed Not Available [facility] 06/01/2022 05:27:19 DTaP 6 completed Not Available [facility] 06/01/2022 05:27:18 Tdap 4 completed Not Available [facility] 06/01/2022 05:27:18 IPV 3 completed Not Available [facility] 06/01/2022 05:27:19 IPV 3 completed Not Available [facility] 06/01/2022 05:27:19 IPV 6 completed Not Available [facility] 06/01/2022 05:27:18 Hib, unspecified formulation 3 completed Not Available [facility] 06/01/2022 05:27:18 Hib, unspecified formulation 3 completed Not Available [facility] 06/01/2022 05:27:19 Hib, unspecified formulation 6 completed Not Available [facility] 06/01/2022 05:27:19 meningococcal ACWY, unspecified formulation 4 completed Not Available [facility] 06/01/2022 05:27:18 MMR 6 completed Not Available [facility] 06/01/2022 05:27:18 Hep B, unspecified formulation 3 completed Not Available [facility] 06/01/2022 05:27:18 Hep B, unspecified formulation 3 completed Not Available [facility] 06/01/2022 05:27:18 Hep B, unspecified formulation 3 completed Not Available [facility] 06/01/2022 05:27:18 Hep B, unspecified formulation 3 completed Not Available [facility] 06/01/2022 05:27:19 MMR 8 completed Not Available [facility] 06/01/2022 05:27:19 varicella 8 completed Not Available [facility] 06/01/2022 05:27:18 polio, unspecified formulation 8 completed Not Available [facility] 06/01/2022 05:27:18 varicella 6 completed Not Available [facility] 06/01/2022 05:27:18 Past Encounters Encounter ID Performer Location Encounter Start Date Encounter Closed Date Diagnosis/Indication Diagnosis SNOMED-CT Code Diagnosis ICD10 Code Diagnosis IMO Codes Diagnosis Note [id number] MD Jevon Stokes (Peds) [address] [place] [id number] 01/10/2017 10:54:35 01/17/2017 08:57:26 Well child 387155437 Z00.129 Anticipato ry guidance discussed as listed in well visit document, which was provided to the parent. Parental questions were solicited and answered. Follow up for well child life specialist on a yearly basis; call office sooner for any new or acute concerns. Parent verbalized understand ing. At [facility] risk of sexually transmitted infection 136135659 Z20.2 Advised to always use condomsLon g discussion about her options and safe sex practicies Contraception care 03791 5005 Z30.40 Patient currently on her period - she will RTC tomorrow for Nexplanon insertion [id number] [facility] [address] [place] [address] [id number] 0 01/11/2017 08:30:34 01/11/2017 09:18:30 Contraception care [id number] Z30.40 Patient currently on her period - she will RTC tomorrow for Nexplanon insertion [id number] MD Jevon Stokes (Peds) [address] [place] [address] [id number] 0 02/11/2017 11:56:22 02/14/2017 17:57:23 Active or passive immunization [id number] Z23 PT HERE FOR NURSE ONLY VISIT FOR HEP A, pARENT GIVEN SHOT RECORD , VIS AND AFTERCARE INSTRUCTIO NS. INSTRUCTED THEM TO RETURN IN 6 MONTHS FOR HEP A #2 AND GARDESIL9 #2 [id number] COLIN Piedra (Adult Med) [address] [place] [address] [id number] 0 04/13/2017 16:36:54 04/14/2017 15:32:01 Contraception care 119783628 Z30.40 Will initiate Xulane x 3 months to try to stop the spottingRT C if no improvemen t Subcutaneo us contraceptive implant palpable [id number] Z30.46 [id number] MD Jevon Rodriguez (Peds) [address] [place] [address] [id number] 0 08/16/2017 10:04:30 08/17/2017 12:30:37 Active or passive immunization 092022466 Z23 [id number] MD Jevon Herrera (Adult Med) [address] [place] [address] 73022-807 0 04/14/2018 09:35:52 04/17/2018 11:27:32 Mass of urinary bladder 793403731 N32.89 Will recheck after 04/27/18 as recommende d by ER Nonulcer dyspepsia 20849 07 K30 Advised to stay away from spicy and greasy foodsAdvis ed to stay away from fatty foodsDo not eat within 2 hours of going to bedStay sitting up after mealsNo smoking c/w MaaloxRTC if no improvemen t and will refer to GI [id number] MD Jevon Rodriguez (Peds) [address] [place] [address] [id number] 0 11/03/2018 11:53:15 11/06/2018 15:34:39 Pain in right knee [id number] 72658 M25.561 Contusion vs bursitis, effusion, other?Mom sees Dr Niall Casanova? and would like pt to see the same, as mom is very happy with his care. Eczema 09469879 L30.9 Reviewed basic skin care with pt, including applying emollient frequently to damp/moist skin (demonstra tyrone), avoiding scented/fr agrance products, and using steroid cream only for areas of new rash (not to exceed 1 week per tx cycle). [id number] MD Jevon Rodriguez (Peds) [address] [place] [address] [id number] 01/17/2019 10:20:03 01/18/2019 12:56:14 Active or passive immunization [id number] Z23 [id number] MD Jevon Rodriguez (Peds) [address] [place] [address] [id number] 0 02/14/2019 10:14:10 02/14/2019 13:43:44 Active or passive immunization 457649720 Z23 [id number] EDINSON SPENCER (Adult Med) [address] [place] [address] [id number] 0 03/07/2019 09:29:49 03/08/2019 09:35:29 Acute low back pain 981252066 M54.5 Went to [facility] on 03/03/19 for acute low back painCT scan done at showed: spondyloly ses at L5-S1 with 4 mm anterior spondyloli sthesis On PE: + lumbar spinal processes and bilateral lumbar paraspinal muscle TTP- Provided patient with care instructio ns and exercises, do not perform exercises until seen by orthopedic s- Will give short course of cyclobenza naman, only take at night because it can cause drowsiness Spondylolisthesis 302901 [address] scan done at showed: spondyloly ses at L5-S1 with 4 mm anterior spondyloli sthesis On PE: + lumbar spinal processes and bilateral lumbar paraspinal muscle TTPPatient to rest and avoid intense activity including PE at school at this time - Continue with NSAIDs for pain as needed - School note provided, no PE until further notice and allowed to sit on soft pillow during class- WIll put in prompt ortho referral [id number] [facility] SPENCER (Adult Med) [address] [place] [address] [phone] 0 12/12/2019 14:32:12 12/13/2019 12:11:41 Contraception care [id number] Z30.40 Here today for nexplanon replacemen t.Patient tolerated both removal of prior nexplanon and insertion of new nexplanon wellOn PE: Nexplanon implant palpated in the left upper arm, shallow and over the triceps muscles. No MSK or neurologic al issues present.Sh e is taking calcium and vit. d supplement daily. - continue with daily supplement s to support bones- patient aware of possible SE from nexplanon [id number] EDIN[facility] SPENCER (Adult Med) [address] [place] [address] [id number] 0 05/20/2020 08:10:30 05/21/2020 12:02:41 Contraception care 117996157 Z30.40 Has nexplanon for controlShe is also complainin g of breakthrou gh bleeding with the nexplanon. She has had this issue before and used the xulane patches to help, she is requesting a refill on the patches.- xulane patches sent to the pharmacy Acute sinusitis 26369158 J01.90 Complainin g of nasal congestion , green/yell ow/white rhinorrhea , mild productive cough, facial pressure, and headaches x 1 week.She has been taking OTC allergy medication and mucus relief medication but has had no relief. She does not feel like her symptoms are improving with supportive care at home.Tom s sick contacts or known COVID exposure.- will start doxycyclin e 100 mg BID x 7 days since allergic to PCNs- mother states she has cough medicaiton at home so will hold off on prescribin g this medication today- continue with supportive care including: - Drink lots of fluids, whatever you like except for alcoholic beverages. - Run a cool-mist humidifier in your room at night. - Get extra rest and do not over-exert yourself. - Do not mix multiple medication s with similar ingredient s [id number] EDIN[facility] SPENCER (Adult Med) [address] [place] [address] [id number] 08/20/2020 14:35:11 08/21/2020 09:53:33 Abdominal pain 37015535 R10.9 Complainin g of intermitte nt abdominal pain x 2 weeks.Pain is not similar to burning sensation experience d w/ damaged gastric lining. No pain relief w/ bowel movements, no episodes of diarrhea/l oose stools.Wor sening pain w/ intake of fatty or greasy foods, notes nausea w/ these foods.Curr ently taking ondansetro n for symptoms of nausea, minimal relief.Has taken some of her mother's famotidine in the past, no releif of abdominal symptoms. Urine dipstick obtained in office, +WBCs. Negative test. - Sent urine for culture, will contact w/ results- Ordered annual labs + amylase and lipase and a test, will contact w/ results.- Advised to decrease intake of fatty/grea sy food to help with abdominal pain and digestion. - Encouraged increased physical activity to aid in relief of abdominal symptoms. Dysphagia 10666087 R13.1 0 [facility] and then [facility] 3 years prior for constant stomach burning. 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 Previously took Malox w/ moderate relief, not currently taking. Has stopped eating Takis.Curr ently complaints of frequent gagging x 2 weeks.Woke up 2 weeks ago feeling nauseous with 2 episodes of yellow emesis and has been experienci ng recurrent episodes of gagging ever since.Symp toms occur with and without food and are worsened with greasy or fatty foods.Asher es episodes of food regurgitat ion, acid reflux, chest pain, increased belching or flatus.- Ordered H. pylori breath test, will contact w/ results.- Will get previous care records from [facility] and [facility]. Constipation 65112971 K5 9.00 Complainin g of intermitte nt constipati on.Takes ondansetro n for nausea but experience s constipati on when not taking medication .Enjoys vegetables , however diet consists of cheese, tunisian food, sonic and taco markham. Does not drink water normally.N ot currently taking any medication for symptomati c relief.Als o experienci ng intermitte nt constipati on. Takes ondansetro n for nausea but notes experienci ng constipati on when not taking medication . Enjoys vegetables , however diet consists of cheese, tunisian food, sonic and taco markham. Does not drink water normally.N ot currently taking any medication for symptomati c relief.- Discussed the importance of increased fiber intake and water intake for relief of constipati on and overall bowel health.- Prescribed metamucil QD for relief of constipati on.- Encouraged patient to increase daily water intake and limit intake of sugary drinks and juices.- Provided w/ care instructio ns for constipati on and a high-fiber diet. Adult [facility] examination [id number] Z00.00 PHQ 08/05 was negative in office today (0 out of 27) [id number] EDIN[facility] SPENCER (Adult Med) [facility] [place] [address] 12/03/2020 14:10:52 12/04/2020 09:50:02 Acute pharyngitis 602552978 J02.9 She woke up with a sore throat on 11/27/2020, she went to [facility] the same day, rapid strep test was negative, she was diagnosed with acute pharyngiti s and discharged home without medication . She has been using throat lozenges since discharge and her sore throat has since resolved. No other symptoms today or complaints . - no further action needed - provided education on her sore throat likely being from a viral infection and if possible to avoid ER for minor visits such as that and to try OTC medication s at home first or call me first prior to going directly to ER [id number] [facility]IN[facility] SPENC[facility] (Adult Med) [address] [place] [address] 12/31/2020 10:16:44 12/31/2020 11:20:50 Injury of hand 027149384 S69.91XD Patient presents after injury to right fifth MCP. Was seen at [facility], per patient xray showed crack in my 5th finger, discharged home with pain medication and long finger splint to keep 5th digit straight. Patient has an appointmen t with ortho/hand on 01/07/21 for further evaluation and management .Is complainin g of continued pain, pain medication helped pain slightly- ortho referral placed, keep upcoming appointmen t- will refill short course of pain medication , use PRN for severe pain- Will send prescripti on for ibuprofen to help decrease inflammati on and use between opioid pain medication - ice affected area 3x/day Contraception care 93071 7106 Z30.40 Has nexplanon for controlShe is also complainin g of breakthrou gh bleeding with the nexplanon. She has had this issue before and used the xulane patches to help, she is requesting a refill on the patches.- xulane patches sent to the pharmacy Generalize d anxiety disorder 22037655 F41.1 Patient reports daily anxiety, worsened when driving in a car. Patient's anxiety has decreased her desire to get her drivers license and states it is interferin g with her life.Admit s to daily generalize d anxiety, tends to worry excessivel y about many things during the day.Has never been on medication or seen a counselor. Denies HI/SI.- Will refer to counseling today.- Will prescribe buspirone 10mg and have patient follow up in 1 month to track progress [id number] [facility] SPENC[facility] (Adult Med) [address] [place] [phone] 0 02/04/2021 11:49:19 02/10/2021 09:01:42 Generalized anxiety disorder 03473799 F41.1 Patient reports daily anxiety, worsened when driving in a car. Patient's anxiety has decreased her desire to get her drivers license and states it is interferin g with her life.Has been taking buspirone 10 mg BID for the past month and has seen a great deal of improvemen t in her anxiety symptoms. States she has not had a panic attack since starting the medication .She is tolerating medication well and does not think she needs the dose adjusted.- c/w buspirone 10 mg Injury of hand 862699260 S69.91XD She saw Dr. Markham, hand specialist a few weeks ago for the right wrist and 5th digit pain, the splint was removed and she was recommende d to frederic tape 5th digit to 4th digit for 2 more weeks. She discontinu ed the frederic tape 2 weeks ago, admits to mild continued swelling of the 5th digit but no pain or stiffness of the joint. She was told only to f/u with Dr. Markham if needed.- c/w supportive care at home including ibprofen and ice to the area x 1-2 more weeks, if swelling continues, follow up with Dr. Markham Acute sinusitis 19350106 J01.90 Complainin g of nasal congestion , green rhinorrhea , dry cough, ear fullness, sinus pressure, lump in her neck, and sore throat x a few days.Has tried throat lozenges to help with throat pain but no relief. Has not tried any other medication . States she is waking up feeling very congested and it is making it difficult to fall asleep at night since she can't breathe.Clemons d COVID earlier this year, no COVID vaccine. Denies sick contacts.- will start cefdinir 300 mg BID x 7 days since allergic to PCNs- other supportive medication s sent to pharmacy- continue with supportive care including: - Drink lots of fluids, whatever you like except for alcoholic beverages. - Run a cool-mist humidifier in your room at night.- Get extra rest and do not over-exert yourself.- Do not mix multiple medication s with similar ingredient s [id number] ED[facility] SPENCER (Adult Med) [address] [place] [address] 02/25/2021 15:21:29 02/26/2021 09:02:45 Right upper quadrant pain 113928203 R10.11 Patient woke up one week ago with right sided abdominal pain that was sharp and constant. The pain lasted for four days, worsened with water intake and felt better laying down. The pain did not radiate anywhere and resolved on its own. She had similar symptoms today while sitting in class that resolved after walking to her car and sitting down. Pt reports having one bowel movement every three days, stools are small and hard, no longer taking metamucil. Her last bowel movement was todayPE: Mild RUQ tenderness to palpation without rebound or guardingPL AN-Will check a CMP and CBC to rule out GB disease- Advised patient to start taking metamucil daily again to to help with constipati on, continue taking and can increase to BID if needed- if severe pain with fever, nausea, vomiting, etc. - go to ER for concern for GB- start keeping log of her symptoms- RTC if symptoms do not improve History of asthma 337771 007 Z87.09 Diagnosed with asthma as a kid that only occurred during the winter. It persisted over the winter months but she has not required an inhaler. She did not start using the albuterol until after receiving one at the beginning of last month when she was prescribed albuterol for recent URI. One week ago she woke up with increased shortness of breath and has been using her albuterol inhaler every 2 hours since that time, admits to feeling shaky and weird after using inhaler.No prior inhalers have been prescribed from me in the last few years for asthmaStat es her anxiety is better than last visit, does not feel like these are panic attacksPLA N- will order PFTs for work-up on asthma since we have never discussed her asthma before- will prescribe Singular and an albuterol inhaler- educated patient on proper use of inhaler and to stop using it every 2 hours, discussed SE of shakiness is likely due to her overuse of the inhaler [id number] [facility] SPENCER (Adult Med) [address] [place] [phone] 0 07/22/2021 14:51:15 07/23/2021 14:16:32 Administration of influenza vaccine 59491278 Z23 patient came into today to receive her influenza vaccine for her school in [place]. she tolerated the injection well [id number] EDIN[facility] SPENCER (Adult Med) [address] [place] [address] [phone] 09/18/2021 12:13:29 09/21/2021 09:44:17 Removal of subcutaneous contraceptive 838809747 Z30.46 Here today for removal of nexplanon due to irregular cycles over the last 2 years- nexplanon removed in the office today, patient tolerated procedure well- keep area clean and dry, keep coban on x 24 hours and steri-stri ps on x 48 hours if possible- fertility will return immediatel y Contraception care 31752 5005 Z30.40 Nexplanon removed in the office todayShe wants it removed today, plan to hold off on starting new control until her cycles become regular again. She is sexually active, requesting additional condoms today for protection .- fertility will return immediatel y, practice safe sex, condoms provided in the office today [id number] EDINSON SPENCER (Adult Med) [address] [place] [id number] 0 10/13/2021 14:43:22 10/14/2021 10:57:06 Pain of left knee joint 4580182234 02383 M25.562 1 week of left knee pain. Her knee gave out on her while she was walking at work and has given out a few times since then. Generalize d aching pain in the knee with intermitte nt sharp pain below her knee cap. The pain worsens with prolonged standing or walking. She noted a little bit of swelling initially, but none today. Denies radiation of pain, numbness or tingling, limited range of motion.PE: mild tenderness to medial and lateral joint line as well as patellar tendonROM normal, strength 5/5, Negative McMurrays- provided care instructio n for knee pain- encouraged patient to rest knee- ice can be applied to decrease swelling- compressio n- can get neoprene knee brace [facility] to [facility] at work- f/u if symptoms worsen or do not resolve with time [id number] EDIN[facility] SPENCER (Adult Med) [address] [place] [address] 0 11/17/2021 11:58:25 11/18/2021 11:11:11 Pain of left knee joint 0683649147 71707 M25.562 Complainin g of continued knee pain after non-trauma tic injury at work 1 month ago, still has aching pain in the knee with intermitte nt sharp pain below her knee cap. Feels like her knee is popping in and out of place but admits to just hearing a popping noise and feeling her knee tense up rather than noticing any bony abnormalit ies of the knee.The pain worsens with prolonged standing or walking. She noted a little bit of swelling initially, but none today. IBU at home is not helping, pain is throbbing at night and having a hard time getting comfortabl e. Admits infrequent numbness/t ingling to the kneeDenies radiation of pain, numbness or tingling, limited range of motion.PE: mild tenderness to medial and lateral joint line as well as patellar tendon and patellar grooveROM normal, strength 5/5, Negative McMurrays- c/w brace for support- will order xray- PT for possible patellar instabilit y and PFS- ortho referral placed Depression screening [id number] 920575 Z13.31 PHQ 2/9 was negative in office today (0 out of 27) [id number] [facility] SPENCER (Adult Med) [address] [place] [id number] 0 01/13/2022 14:46:44 01/14/2022 11:58:04 Nausea 565541973 R11.0 Pt presents today w/ 10day h/o nausea. Nausea commonly occurs in morning or after meals. Pt had a bout of diarrhea for several days prior to onset of nausea. Pt has h/o gastritis and use of NSAIDs. Pt has not taken NSAIDs for 1 month. She is engaged and actively trying to become . Pt does not use any form of control as of recent. Has tried 2 tests, and both were negative. Pertinent negatives include hematemesi s, dysphagia, odynophagi a, abdominal pain, postprandi al abdominal, or hematochez ia. Given presentati on of nausea and recent h/o diarrhea, suggestive of post-infec tious gastritis. - test negative-P rovided education on eating habits, and proper diet to partake in while sx persist.-R x Omeprazole 20mg, once daily.-Rx Sucralfate 1g tablet, 4 times daily for 7 days.-Rx Ondansetro n 8mg, PRN up to 3 times per day. Atopic dermatitis 701825 01 L20.9 Pt has recurrence of atopic dermatitis overlying left anterior forearm, as well as upper torso and neck. -Rx Triamcinol one acetonide 0.1% topical cream applied to affected area(s) 2x/day, for 7-10 days.- derm referral sent per patient's request [id number] EDIN[facility] SPENCER (Adult Med) [facility] [place] [address] 03/05/2022 14:32:47 03/09/2022 08:42:08 History and physical examination, school 68792499 Z02.0 Pt presenting for routine school physical-T B test ordered today; will contact pt with results- paperwork completed, still have at office, will complete once TB test results are reviewed Atopic dermatitis 444020 L20.9 Pt has recurrence of atopic dermatitis overlying left anterior forearm, as well as upper torso and neck. Pt has derm appt 03/17/22 -Rx Triamcinol one acetonide 0.1% topical cream applied to affected area(s) 2x/day, for 7-10 days.- Wash the affected area with water only. Soap can make dryness and itching worse. Pat dry.- Apply a moisturize r after bathing. Use a cream such as Aquaphor that does not irritate the skin or cause a rash. Apply the cream while your skin is still damp after lightly drying with a towel.Use cold, wet cloths to reduce itching. Viral uppe r respiratory tract infection 643574941 J06.9 Pt reporting 1 day of sinus congestion , nasal congestion and clear rhinorrhea On PE, retracted TM bilaterall y, erythemato us and edematous nasal mucosa, clear rhinorrhea notedDenie s fever, cough, sore throat-Pt encouraged to pursue supportive care at home and return if sx do not improve in 7-10 days [id number] [facility] SPENCER (Adult Med) [address] [place] [phone] 0 03/24/2022 09:32:27 03/25/2022 12:46:03 test positive 371561672 Z32.01 Her and her finance have been trying to get for the last few months.Sta connie her LMP was 12/2021 but bHCG 01/2022 was negative. Still has not had a period since 12/2021 and has had 2 positive tests at home.Admit s to nausea but no throwing up at this time.- positive test today in the office, will order serum labs to ensure- start pre-morales vitamins- patient not on other medication s at this time, discussed tylenol use if safe but best to avoid NSAIDS- needs 2nd COVID vaccine, encouraged to get on schedule here at the office- provided informatio n on first trimester of , answered all questions for her at this time- start with pyridoxine for nausea- will get scheduled with OBGYN upstairs for NOB [id number] [facility] (Peds) [address] [place] [phone] 03/31/2022 14:25:45 04/01/2022 10:15:42 Administration of SARS-CoV-2 mRNA vaccine [id number] Z23 Health Concerns Section Related Observation LastModified by Organization Detai ls LastModified Time None Recorded Concern Status LastModified by Organization Details LastModified Time None Recorded Advance Directives Directive None Recorded Payers Insurance Date Sequence Insurance Name Policy Number Policy Jim Covered Member ID Jim Member ID Guarantor Name 03/01/2025 1 [facility] - DOS ON OR AFTER 20 (MEDICAID REPLACEMENT - HMO) Maricel Rosado [id number] Sophia Betancourt 03/01/2025 1 [facility] (MEDICAID HMO) Maricel Rosado [id number] Sophia Betancourt 03/01/2025 1 [facility] - DOS PRIOR TO 2020 (MEDICAID REPLACEMENT - HMO) Maricel Rosado [id number] Sophia Betancourt 03/01/2025 1 MEDICAID-[place]: [facility] Maricel Rosado [id number] Sophia Betancourt Notes Date Note Type Note Provider Name and Address Organization Details Recorded Time 11/17/2021 text/html ROS as noted in the HPI Maricel is an 20 yo female presenting today for f/u on left knee pain x 1 month. Her knee gave out on her while she was walking at work and has given out a few times since then. She has generalized aching pain in the knee with intermittent sharp pain below her knee cap. Feels like her knee is popping in and out of place but admits to just hearing a popping noise and feeling her knee tense up rather than noticing any bony abnormalities of the knee. The pain worsens with prolonged standing or walking. She noted a little bit of swelling initially, but none today. IBU at home is not helping, pain is throbbing at night and having a hard time getting comfortable. Admits infrequent numbness/tingling to the knee when she puts in the knee in specific positions. Denies radiation of pain, numbness or tingling, limited range of motion. Denies known injury to the knee, knee pain prior to 1 week ago, skin changes over the knee, chest pain, dyspnea, abd pain, fever, fatigue, chills. EDIN[facility] SPENCER Attn: [address] [place], [address], [facility] 11/17/2021 15:56:38 01/13/2022 text/html ROS as noted in the HPI Pt reports that she has been experiencing nausea since January 04. Pt endorsed that she has been experiencing nausea since January 04. Nausea has been consistent since that time. Nausea occurs in morning, or after eating greasy foods. Pt endorses that she had a stomach bug the days leading up to the nausea, and had diarrhea for 2 days prior to onset of nausea. Denies fever or chills during this time. Pt has thrown up once, occurred on January 05. Pt has tried pepto-bismol to help w/ the nausea. Pt endorses to eat a lot of spicy food, but has stopped since the nausea started. Pt has not taken analgesics for knee since a month. Pt was dx w/ gastritis last year. Pt has been sexually active, and she is engaged. They are currently trying to conceive. Pt took two tests at home and they were negative. Denies blood or coffee ground appearance to vomit. Denies difficulty swallowing or painful swallowing food or liquids. Denies abdominal pain. Stools have been normal since January 04. Denies blood or darker spots in stool. Denies RUQ pain after eating. Pt also complains of rash that has appeared on left arm as well as neck area. Pt has h/o eczema. Denies fever, chills, nausea, vomiting, headaches, chest pain, SOB, abdominal pain, diarrhea, constipation, or dysuria. 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 Immunizations up to date. Needs blood test for TB. Still struggling with wide-spread eczema rash, never picked up topical steroid cream to use and is not using daily moisturizer. Has upcoming appointment with Dermatolgy next week. Pt has been experiencing sinus congestion, nasal congestion, and clear rhinorrhea x 1 day. Reports she frequently gets sinus infections. Pt has not tried any supportive care at this time.Denies fever, cough, sore throat, chills, n/v, headache, CP, SOB, abdominal pain, constipation, diarrhea EDINSON SPENCER Attn: [address] [place], [address], [facility] 03/08/2022 08:30:06 03/24/2022 text/html ROS as noted in the HPI 21 year old female presents today for possible . Her and her finance have been trying to get for the last few months. States her LMP was 12/2021 but bHG 01/2022 was negative. Still has not had a period since 12/2021 and has had 2 positive tests at home. Admits to nausea but no throwing up at this time. Denies fever, chills, vomiting, headaches, chest pain, SOB, abdominal pain, diarrhea, constipation, or dysuria. EID[facility]ON SPENCER Attn: Accounting[address] , [place], [address], [facility] 03/24/2022 12:16:45 OBGyn Episode Ob Episode Information Episode Created Date Number of Fetuses Patient Bloodtype Patient rh Status Prepregnancy Weight lbs Domestic Partner Domestic Partner Phone Father Name Manager Ems Status 11/30/19 23 1 CLOSED Fetus Data First Name Last Name Admitted to NICU Weight (g) Sex Living Outcome Pediatric Complications Fetus ID Race Codes Race Delivery Type M Full Term [id number] Vaginal Mark Calculation Initial Mark Date Initial Exam Date Initial Exam Provider Initial Ultrasound Date Last Menstrual Period Date Ultra Sound Weeks Gestation 0 Eighteen To Twenty Week Mark Update Ultra Sound Date Fundal Height At Umbil Quickening Date Ultra Sound Latest Weeks Gestation Final Mark Confirmed By Final Mark Confirmed Date Final Mark Date Ultra Sound Latest Days Gestation 0 0 Menstrual History Last Menstrual Date Menses Monthly On Bcp Conception Prior Menses Frequency Hcg Plus Date Menarche Onset Age Delivery Information Delivery Date Delivery Type Labor Anesthesia Weeks Gestation Incision Type Labor Labor Length Hrs Delivered By Post Complications Tubal Sterilization Discharge Date Comments 3 None 39 false Discharge Information Feeding Method Contraceptive Method Maternal HG B and HCT Levels
--- OUTSIDE RECORDS SUMMARY | 2025-06-25 02:11 | XMS_ITS | Continuity of Care Document ---
Author Organization [facility] [place] Address [address] [place] [address] Care Team Providers Care Seismographer Name Role Phone DARBY SINGH Primary Care [...] obstetric , transvagi nal 2024 025 [email or web address] [place], [address], [place], [address], 05/18/2025 21:51:12 Medication Orders None recorded. Patient TargetsNo targets recorded. Patient InstructionsNo instructions recorded. Reason for Referral None Reported. Results Created Date Observation Date Name Description Value Unit Range Abnormal Flag Note LastModifiedBy Organization Detail LastModifiedTime 04/22/2004/22/2025 pregn maria c test, urine HCG negati ve Not Available [place] [address], [place], [address], 04/22/2025 16:34:44 05/16/20 25 05/16/2025 BHCG, QUANT ITATI VE B-HCG 9767.0 mIU/m L 0.0-4. 9 high The test metho d is elect [facility] inesc ence immun oassa y perfo rmed on the Elina Devendra e801. Value s obtai rebecca with [...] Weeks 8,099 - 58,17 6 Not Available [facility] (Lab) [address], [place], [address], 05/17/2025 04:18:33 05/16/20 25 05/16/2025 US, obste tric, trans vagin al No observ ation record ed. [email or web address] [place] [address], [place], [address], 05/16/2025 13:00:52 05/16/20 25 05/16/2025 US, obste tric, follo w-up No observ ation record ed. [facility] [address], [place], [address], 05/20/2025 11:32:22 06/05/20 25 06/05/2025 US, obste tric, trans vagin al No observ ation record ed. [facility] [address], [place], [address], 06/05/2025 16:23:37 06/05/2006/05/2025 US, obste tric, trans vagin al No observ ation record ed. [email or web address] [address], [place], [address], 06/08/2025 00:14:52 06/18/2006/18/2025 US, obste tric, trans vagin al No observ ation record ed. [email or web address] [place] [address], [place], [address], 06/18/2025 13:04:32 06/18/20 25 06/18/2025 US, obste tric, trans vagin al No observ ation record ed. [email or web address] [address], [place], [address], 06/24/2025 22:46:38 Result Notes None recorded. Problems Name Problem SNOMED Code Status Onset Date Resolution Date Notes Provider Name and Address Organization Details Recorded Time Asthma 731332183 Active Hector Quijano MD [address], [place], [address], [facility] 4 15:10:50 Asthma 008989722 Completed Hector Quijano MD [address], [place], [address], [facility] 4 15:10:50 Marginal insertio n of umbilica l cord 29372278 Completed serial growth Michelle Witt [facility], [facility] 4 11:44:25 Placenta circumva llata 1482407 Completed Gabriel Phillips [facility], [facility] 4 09:51:05 Asthma in pregnanc y 0791445961 9103 Completed 2021 mild, has inhaler Gabriel Phillips [facility] 3 16:00:15 Pregnanc y 08723927 Completed 202112/10/2022 Vickie Sierra [facility], [facility] 5 13:47:46 Uterine size for dates discrepa ncy 924470386 Completed 2022 Gabriel Phillisp [facility] 3 16:00:15 Pregnanc y 22924970 Completed 202310/06/2024 Vickie Sierra [facility] 5 13:47:46 Mixed anxiety and depressi ve disorder 004240752 Active 2024 Mirian Novak [facility] 5 12:52:52 Problem Notes None recorded. Procedures Surgical History Date Name Laterality Status Provider Name and Address Organization Details Recorded Time 4 IUD Insertion cancelled Jennifer Lindman [facility] 10/06/2023 15:37:22 1 procedure on hand completed Mirian [facility] 08/09/2022 10:18:28 1 procedure on elbow completed Mirian [facility] 08/09/2022 10:18:23 Imaging Results None recorded. Procedure Notes None recorded. Medical Equipment None Reported. Allergies Allergen ID Allergen Name Allergen Category Reaction Reaction Severity Criticality Documentation Date Start Date Code Code System Note Provider Name and Address Organization Details Recorded Time 82617 amoxicill in medicatio n Not available Not available Not available 04/14/2022 723 RxNorm Vanessa Matthieu [facility] 2 14:37:19 08895 povidone- iodine medicatio n rash Not available [facility] 05/20/20252017 8611 RxNorm Not Available lizandro - External Data Service - prod 11:22:36 Medications Name Sig Start Date Stop [...] completed Not Available Not Available Not Available Depo-Film Composer a 150 mg/mL intramuscul ar suspension Inject [...] completed Not Available Not Available Not Available FE 1.5/30 (28) 1.5 mg-30 mcg (21)/75 mg [...] Updated DateTime 05/16/2025 165.1 cm 25.8 kg/m2 66835.82 g 106/74 mm[Hg] Crystal Abdi [facility] 05/16/2025 11:25:21 Social History Question Answer Notes LastModified by Organizat ion Details LastModified Time Tobacco Smoking Status Never Smoker Mirian Novak yon, [facility] 08/09/2022 10:11:03 Do You Have An Advance Directive? No [email or web address] Information n ot available 08/09/2022 Are You Blind Or Do You Have Difficulty Seeing? No [email or web address] Information n ot available 08/09/2022 What Is Your Level Of Caffeine Consumption? Occasional Information not available 08/09/2022 How Much Tobacco Do You Chew? None [email or web address] Information not available 08/09/2022 In The 14 Days Before Symptom Onset, Have You Had Close Contact With A Laboratory-confirm ed COVID-19 While That Case Was Ill? No [email or web address] Information n ot available 08/09/2022 In The 14 Days Before Symptom Onset, Have You Had Close Contact With A Person Who Is Under Investigation For COVID-19 While That Person Was Ill? No [email or web address] Information not available 08/09/2022 Have You Been To An Area Known To Be High Risk For COVID-19? No [email or web address] Information not available 08/09/2022 Are You Deaf Or Do You Have Serious Difficulty Hearing? No [email or web address] Information not available 08/09/2022 What Type Of Diet Are You Following? REGULAR [email or web address] Information n ot available 08/09/2022 What Is The Highest Grade Or Level Of School You Have Completed Or The Highest Degree You Have Received? DH11114-7 [email or web address] Information not available 08/09/2022 Are There Any Guns Present In Your Home? No [email or web address] Information not available 08/09/2022 Do You Use Protection During Sex? No [email or web address] Information not available 08/09/2022 Do You Use Your Seat Belt Or Car Seat Routinely? Yes [email or web address] Information not available 08/09/2022 Do You Have Smoke And Carbon Monoxide Detectors In Your Home? No [email or web address] Information not available 08/09/2022 How Much Tobacco Do You Smoke? No [email or web address] Information not available 08/09/2022 Do You Use Sunscreen Routinely? Yes Information not available 08/09/2022 Has Tobacco Cessation Counseling Been Provided? No Information not available 08/09/2022 Have You Used IV Drugs? Yes [email or web address] Information not available 08/09/2022 Do You Have Difficulty Walking Or Climbing Stairs? No [email or web address] Information not available 08/09/2022 Sex: Unknown Functional Status Question Answer Note LastModified by Organizat ion Details LastModified Time Do you use any illicit or recreational drugs? No Information not available 04/14/2022 Do you or have you ever used any other forms of tobacco or nicotine? No [email or web address] Information not available 08/09/2022 What is your level of alcohol consumption? None Information not available 04/14/2022 Are you able to walk independently without assistance or assistive devices? YESWOREST [email or web address] Information not available 08/09/2022 Are you able to care for yourself independently? Yes [email or web address] Information not available 08/09/2022 Do you have difficulty dressing, bathing, grooming, or toileting? No [email or web address] Information not available 08/09/2022 What is your exercise level? None [email or web address] Information not available 08/09/2022 Mental Status Question Answer Note LastModified by Organization D etails LastModified Time Do you feel stressed (tense, restless, nervous, or anxious, or unable to sleep at night)? [id number] [email or web address] Information not available 08/09/2022 Family History Relationship [...] ) Y Other Y Drug/Latex Allergies/Reactions N Breast Cancer N Blood Transfusion N Dermatologic Disorders N Lung Disease N Defects or Inherited Disease N Breast Problem N Gestational Diabetes N Hematologic disorders N Anesthesia Complications N History of STI N Deep Vein Thrombosis N Polycystic ovary syndrome N Anxiety Disorder N Autoimmune disease N Arthritis N Infertility N Polyps N Acid Reflux (GERD) N History of abnormal pap N Cancer N Stroke N Varicosities N Neurologic/Epilepsy N Endometriosis N High Cholesterol [...] ICD10 Code Diagnosis IMO Codes Diagnosis Note [id number] JEREMY Moran [place] [address] [address] 04/22/2025 14:56:28 04/23/2025 09:10:56 Pain of breast 44950372 N64.4 63466 order given for bilateral breast u/slimit caffiene, supportive bras, avoid underwireR TC for WWE Time spent in visit is a total of 20 mins with at least 50% of visit consisting of counseling and review of plan of care. [id number] Hector Quijano MD [place] [address] [address] 05/16/2025 10:45:40 05/16/2025 11:22:11 Uterine size for dates discrepancy 048533615 O26.841 Z3A.01 O36.80X0 2816810 [id number] Hector Quijano MD [place] [address] [address] 05/16/2025 10:56:09 05/18/2025 08:03:12 Amenorrhea 05456205 N91.2 19242 this patient is a 24-year-ol d female [...] Member ID Guarantor Name 05/16/2025 1 [facility] - DOS ON OR AFTER 20 (MEDICAID REPLACEMENT - HMO) Maricel Rosado [id number] Maricel Rosado Notes Date Note Type Note [...] total. Hector Quijano MD [address], [place], [address], [facility] 05/17/2025 17:54:32 OBGyn Episode No OBEpisode recorded.
--- OUTSIDE RECORDS SUMMARY | 2025-06-25 02:11 | XMS_ITS | Clinical Summary ---
Author Organization [facility] Address [address] [place] [address] Care Team Providers Care Completions Manager Name Role Phone Saniya Mauro PA-C Primary Care Provider [phone] Source Comments [facility],non-owned Affiliates and Associated Physician Practices is amultiple site organization consisting of ambulatory clinics and hospital sitesin [place], [place], [place] and [place]. This disclosure is being madepursuant to the Care Everywhere program and may not contain all information available regarding this patient. Last updated 18.[facility] Allergies Active Allergy Reactions Criticality Noted Date [...] on file Legal Sex Female 5:42 AM ENTRY TECH Gender Identity Not on file Sexual Orientation [...] DEPRESSION SCREENING 06/27/2024 COVID-19 VACCINE (1 - 2024-2 6 season) 2025 INFLUENZA VACCINE (#1) 2025 03/15/2018 [...] ID:Not on file (Home) Address: [address] [address] [place] [address] Payer ID:Not on file Group ID:Not on file Type:Self Pay Address: [place], [place] [employer] Advance Directives * Full Code (Latest Code Status on File) Date Activated Date Inactivated Comments 03/14/2018 5:02 PM 03/15/2018 2:18 PM Care Teams Completions Manager Relationship Specialty Start Date End Date Saniya Mauro PA-C PCP - General Physician Industrial Arts Teacher 03/14/18
--- OUTSIDE RECORDS SUMMARY | 2025-06-25 02:11 | XMS_ITS | Data Portability ---
Author Organization [facility] Address [address] [place] [address] [place] [address] Care Team Providers Care Billet Inspector Name Role Phone DARBY SINGH Primary Care Provider Assessment No assessment recorded. Plan of Treatment Reminders Order Date Submit Date Provider Last Modified By Organization Details Last Modified Time Details Appointments SURG Suction D&C 2024 01:00P Eneida GARCIA MD Not available Not available Not available SURG POST OP 2025 02:15P Eneida GARCIA MD Not available Not available Not available Lab CBC w/ auto diff 2024 025 [facility] (Lab), [address], [place], [address], 06/19/2025 06:57:22 beta-HCG, quantitat theresa, serum or plasma 2024 025 [facility] (Lab), [address] [place], [address], 06/19/2025 06:57:22 Referral None recorded. Procedures None recorded. Surgeries None recorded. Imaging US, obstetric , transvagi nal 2024 025 gustavo [facility], [address], [address], [place], [address], 06/20/2025 21:45:22 US, obstetric , transvagi nal 2024 025 gustavo Cameron[address], [address], [place], [address], 06/05/2025 18:53:59 US, obstetric , transvagi nal 2024 025 [email or web address] [facility], [address], [address], [place], [address], 05/18/2025 21:51:12 Medication Orders Cytotec 200 mcg tablet 2024 025 [id number], [address], [id number], 06/05/2025 14:42:57 Patient TargetsNo targets recorded. Patient InstructionsNo instructions recorded. Reason for Referral None Reported. Results Created Date Observation Date Name Description Value Unit Range Abnormal Flag Note LastModifiedBy Organization Detail LastModifiedTime 04/22/2004/22/2025 pregn maria c test, urine HCG negati ve Not Available [facility] [address], [place], [address], 04/22/2025 16:34:44 05/16/2005/16/2025 BHCG, QUANT ITATI VE B-HCG 9767.0 mIU/m L 0.0-4. 9 high The test metho d is elect safia mil inesc ence immun oassa y perfo rmed [...] Weeks 8,099 - 58,17 6 Not Available [facility] (Lab) [address], [place], [address], 05/17/2025 04:18:33 05/16/20 25 05/16/2025 US, obste tric, trans vagin al No observ ation record ed. [email or web address] [facility] [address], [place], [address], 05/16/2025 13:00:52 05/16/20 25 05/16/2025 US, obste tric, follo w-up No observ ation record ed. [email or web address] [address]li [address], [place], [address], 05/20/2025 11:32:22 06/05/20 25 06/05/2025 US, obste tric, trans vagin al No observ ation [email or web address] [address], [place], [address], 06/05/2025 16:23:37 06/05/20 25 06/05/2025 US, obste tric, trans vagin al No observ ation record ed. [email or web address] Cheli [address], [place], [address], 06/08/2025 00:14:52 06/18/20 25 06/18/2025 US, obste tric, trans vagin al No observ ation record ed. [email or web address] [facility] [address], [place], [address], 06/18/2025 13:04:32 06/18/20 25 06/18/2025 US, obste tric, trans vagin al No observ ation record ed. [email or web address] Cheli [address], [place], [address], 06/24/2025 22:46:38 Result Notes None recorded. Problems Name Problem SNOMED Code Status Onset Date Resolution Date Notes Provider Name and Address Organization Details Recorded Time Asthma 989767089 Active Hector Garcia MD [address], [place], [address], [facility] 4 15:10:50 Asthma 405577691 Completed Hector Garcia MD [address], [place], [address], [facility] 4 15:10:50 Marginal insertio n of umbilica l cord 19023486 Completed serial growth Michelle Witt [facility], [facility] 4 11:44:25 Placenta circumva llata 1503176 Completed Gabriel Phillips [facility], [facility] 4 09:51:05 Asthma in pregnanc y 0188047911 9103 Completed 2021 mild, has inhaler Gabriel Phillips [facility], [facility] 3 16:00:15 Pregnanc y 04178857 Completed 202112/10/2022 Vickie Sierra null, [facility] 5 13:47:46 Uterine size for dates discrepa ncy 370966741 Completed 2022 Gabriel Phillips [facility], [facility] 3 16:00:15 Pregnanc y 79921201 Completed 202310/06/2024 Vickie Sierra null, [facility] 5 13:47:46 Mixed anxiety and depressi ve disorder 982607731 Active 2024 Mirian Novak [facility] 5 12:52:52 Problem Notes None recorded. Procedures Surgical History Date Name Laterality Status Provider Name and Address Organization Details Recorded Time 4 IUD Insertion cancelled Jennifer Ruano [facility] 10/06/2023 15:37:22 1 procedure on hand completed Mirian Novak [facility] 08/09/2022 10:18:28 1 procedure on elbow completed Miriandmitry Novak [facility] 08/09/2022 10:18:23 Imaging Results None recorded. Procedure Notes None recorded. Medical Equipment None Reported. Allergies Allergen ID Allergen Name Allergen Category Reaction Reaction Severity Criticality Documentation Date Start Date Code Code System Note Provider Name and Address Organization Details Recorded Time 21533 amoxicill in medicatio n Not available Not available Not available 04/14/2022 723 RxNorm Vanessa Matthieu [facility] 2 14:37:19 55629 povidone- iodine medicatio n rash Not available [facility] 05/20/20252017 8611 RxNorm Not Available [place] - External Data Service - prod 5 [...] completed Not Available Not Available Not Available Depo-[employer] a 150 mg/mL intramuscul ar suspension Inject [...] Updated DateTime 05/16/2025 165.1 cm 25.8 kg/m2 94492.82 g 106/74 mm[Hg] Crystal Patton [facility] 05/16/2025 11:25:21 Date Recorded Body height Provider Name an d Address Organization Details Last Updated DateTime 06/05/2025 165.1 cm Crystal Patton [facility] 06/05/2025 14:01:55 Date Recorded Body height Body mass index (BMI) Body weight Systolic And Diastolic Provider Name and Address Organization Details Last Updated DateTime 06/18/2025 165.1 cm 25 kg/m2 39985.86 g 102/70 mm[Hg] Radha Blue [facility] 06/18/2025 11:08:38 Social History Question Answer Notes LastModified by Organizat ion Details LastModified Time Tobacco Smoking Status Never Smoker Mirian Novak [facility], [facility] 08/09/2022 10:11:03 Do You Have An Advance Directive? No [email or web address] Information n ot available 08/09/2022 Are You Blind Or Do You Have Difficulty Seeing? No [email or web address] Information n ot available 08/09/2022 What Is Your Level Of Caffeine Consumption? Occasional [email or web address] Information not available 08/09/2022 How Much Tobacco Do You Chew? None [email or web address] Information not available 08/09/2022 In The 14 Days Before Symptom Onset, Have You Had Close Contact With A Laboratory-confirm ed COVID-19 While That Case Was Ill? No [email or web address] Information n ot available 08/09/2022 In The 14 Days Before Symptom Onset, Have You Had Close Contact With A Person Who Is Under Investigation For COVID-19 While That Person Was Ill? No [email or web address] Information not available 08/09/2022 Have You Been To An Area Known To Be High Risk For COVID-19? No [email or web address] Information not available 08/09/2022 Are You Deaf Or Do You Have Serious Difficulty Hearing? No [email or web address] Information not available 08/09/2022 What Type Of Diet Are You Following? REGULAR [email or web address] Information n ot available 08/09/2022 What Is The Highest Grade Or Level Of School You Have Completed Or The Highest Degree You Have Received? [id number] [email or web address] Information not available 08/09/2022 Are There Any Guns Present In Your Home? No [email or web address] Information not available 08/09/2022 Do You Use Protection During Sex? No [email or web address] Information not available 08/09/2022 Do You Use Your Seat Belt Or Car Seat Routinely? Yes [email or web address] Information not available 08/09/2022 Do You Have Smoke And Carbon Monoxide Detectors In Your Home? No [email or web address] Information not available 08/09/2022 How Much Tobacco Do You Smoke? No [email or web address] Information not available 08/09/2022 Do You Use Sunscreen Routinely? Yes [email or web address] Information not available 08/09/2022 Has Tobacco Cessation Counseling Been Provided? No [email or web address] Information not available 08/09/2022 Have You Used IV Drugs? Yes [email or web address] Information not available 08/09/2022 Do You Have Difficulty Walking Or Climbing Stairs? No [email or web address] Information not available 08/09/2022 Sex: Unknown Functional Status Question Answer Note LastModified by Organizat ion Details LastModified Time Do you use any illicit or recreational drugs? No Information not available 04/14/2022 Do you or have you ever used any other forms of tobacco or nicotine? No [email or web address] Information not available 08/09/2022 What is your level of alcohol consumption? None Information not available 04/14/2022 Are you able to walk independently without assistance or assistive devices? YESWOREST [email or web address] Information not available 08/09/2022 Are you able to care for yourself independently? Yes [email or web address] Information not available 08/09/2022 Do you have difficulty dressing, bathing, grooming, or toileting? No [email or web address] Information not available 08/09/2022 What is your exercise level? None [email or web address] Information not available 08/09/2022 Mental Status Question Answer Note LastModified by Organization D etails LastModified Time Do you feel stressed (tense, restless, nervous, or anxious, or unable to sleep at night)? [id number] [email or web address] Information not available 08/09/2022 Family History Relationship [...] N Breast Cancer N Blood Transfusion N Lung Disease N Dermatologic Disorders N Defects or Inherited Disease N Breast Problem N Gestational Diabetes N Hematologic disorders N Anesthesia Complications N History of STI N Deep Vein Thrombosis N Polycystic ovary syndrome N Anxiety Disorder N Autoimmune disease N Arthritis N Polyps N Infertility N History of abnormal pap N Acid Reflux (GERD) N Cancer N Varicosities N Stroke N Neurologic/Epilepsy N Endometriosis N High Cholesterol N Headaches N Fibromyalgia N Kidney Disease N Heart Problems N [...] ICD10 Code Diagnosis IMO Codes Diagnosis Note [id number] Demetrai Holly MD [facility] [address] [address] 04/14/2022 14:05:10 04/14/2022 14:42:10 Uncertain viability of 303809035 O36.80X0 Z3A.01 [id number] Demetria Holly MD [facility] [address] [address] 04/14/2022 14:05:32 04/14/2022 15:12:09 test positive 132411303 Z32.01 Asthma in 7230 853731 5061 J45.909 Venereal d isease screening 240240051 Z11.3 [id number] Demetria Holly MD [facility] [address] [address] 05/03/2022 14:10:56 05/08/2022 22:36:23 [id number] Demetria Holly MD [facility] [address],[place] [address] 05/24/2022 11:40:42 05/24/2022 14:02:02 screening 948172615 Z36.82 [id number] Demetria Holly MD [facility] [address],[place] [address] 05/24/2022 14:05:58 05/25/2022 16:10:50 Routine care 315274250 Z34.91 [id number] Demetria Holly MD [facility] [address],[place] [address] 06/15/2022 14:12:24 06/15/2022 14:47:44 Routine care 321118401 Z34.91 [id number] Demetria Holly MD [facility] [address],[place] [address] 07/15/2022 16:06:20 07/15/2022 17:15:32 screening for malformation 038721472 Z36.3 [id number] Megan Gr [facility] [address],[place] [address] 07/15/2022 16:07:02 07/15/2022 17:59:21 Routine care 748674370 Z34.92 [id number] Megan Gr [facility] [address],[place] [address] 08/09/2022 10:01:19 08/09/2022 10:34:35 Routine care 813552690 Z34.92 [id number] Demetria Holly MD [facility] [address],[place] [address] 09/06/2022 10:11:57 09/06/2022 12:16:23 Routine care 114112930 Z34.91 [id number] MD Madyson Nicholas [address],[place] [address] 09/21/2022 11:17:18 09/24/2022 13:20:32 [id number] MD Madyson Nicholas [address],[place] [address] 10/05/2022 13:54:33 10/05/2022 14:39:59 Routine care 700063016 Z34.91 Uterine si ze for dates discrepancy 559502278 O26.849 [id number] MD Madyson Nicholas [address],[place] [address] 10/19/2022 14:12:51 10/20/2022 14:46:05 Routine care 533906588 Z34.91 Nausea and vomiting 1693 2000 R11.2 [id number] MD Tonja [place] [address],[place] [address] 10/19/2022 14:13:18 10/19/2022 15:10:41 Uterine size for dates discrepancy 014004440 O26.843 Z3A.34 [id number] MD Madyson Noble [address],[place] [address] 11/01/2022 14:06:04 11/01/2022 14:57:37 Routine care 868181952 Z34.03 [id number] Hector Garcia MD [facility] [address],[place] [address] 11/01/2022 15:39:49 11/01/2022 16:40:48 tachycardia 149322378 O36.8399 [id number] MD Madyson Nicholas [address],[place] [address] 11/09/2022 14:55:31 11/10/2022 10:12:51 Routine care 106291196 Z34.91 [id number] MD Madyson Nicholas [address],[place] [address] 11/16/2022 14:15:49 11/16/2022 15:20:27 Routine care 712527930 Z34.91 [id number] MD Madyson Nicholas [address],[place] [address] 12/29/2022 15:08:20 01/05/2023 14:52:31 care 773279159 Z39.2 [id number] Demetria Holly MD [facility] [address],[place] [address] 12/31/2022 16:09:03 12/31/2022 16:13:20 Contraception care management 073184449 Z30.9 [id number] [facility] [address],[place] [address] 03/24/2023 09:56:49 03/24/2023 10:43:56 Gynecologic examination 22025223 Z01.419 Take Calcium with Vitamin D 1200mg daily if not receiving in daily diet. It is strongly advised to have an annual flu shot and up can obtain at most pharmacies . If you have not had a TDap shot in the last 10 years you should obtain one as well. Discussed with patient & provided with informatio n regarding Gardisil vaccine to prevent the 4 strains for HPV that cause cervical cancer. Encourage safe sexual practices, to use condoms and limit partners if not already in a monogamous relationsh ip. Do monthly self breast exams. BRCA testing is now available for patients with strong genetic history of female cancer. If interested contact the office. Engage in daily exercise of low impact aerobic exercise 45-60 minutes 4-5 times weekly. Avoid tobacco, illicit drugs, and alcohol. This lifestyle behavior pattern will lead to less health conditions and longer life span. If BMI greater than 25 weight watchers or dietary consult advised. Pap smear is not recommende d prior to the age of 21. If you have any concerns, pelvic, or vaginal problems we can discuss testing. Patient received above instructio ns, and questions have been answered. If you have any questions please call or respond to this email. Patient was made aware of the patient portal and may obtain a paper copy of today's plan if desired. Pap due age 23yoSTD Screen declinedGe netic Screen discussedC olon Screen naDexa Screen naRoutine Labs completed 2022 Contracept ion care management 046117664 Z30.9 [id number] JEREMY Moran [facility] [address],[facility] [place] [address] 10/06/2023 15:16:27 10/06/2023 15:45:27 Contraception care management 201290122 Z30.9 All BC methods discussedr /b/a reviewedwo uld like Mirena IUDquestio ns answered, handout givencurre ntly on her period - scheduled to RTC tomorrow for insertion Mastitis a ssociated with 337322432 O91.23 complete antibiotic coursesupp ortive care discussedc ontinue to nurse/pump questions answeredpr ecautions reviewed Time spent in visit is a total of 25 mins with at least 50% of visit consisting of counseling and review of plan of care. [id number] JEREMY Moran [facility] [address],[place] [address] 10/20/2023 15:13:47 10/20/2023 17:38:42 Contraception care management 041437870 Z30.9 Irregular periods 209474 07 N92.6 gc/ct/tric h testing collectedp elvic u/s orderedBC methods discussedi nt in mirena IUDwill update pelvic u/s and update pt with results when available/ schedule IUD insertion at that timequesti ons answered Time spent in visit is a total of 30mins with at least 50% of visit consisting of counseling and review of plan of care. Pain in pelvis 62286934 R10.2 [id number] Hector Garcia MD [facility] [address],[place] [address] 10/25/2023 15:32:12 10/25/2023 16:17:25 Pain in pelvis 41788437 R10.2 [id number] Hector Garcia MD [facility] [address],[place] [address] 04/06/2024 13:54:11 04/06/2024 14:34:16 screening 582928253 Z36.82 Z3A.13 [id number] Hector Garcia MD [facility] [address],[place] [address] 04/06/2024 13:56:40 04/06/2024 15:33:01 Asthma 645035542 J45.909 Routine an tenatal care 860971909 Z34.90 [id number] Michaela Brower CNM [facility] [address],[place] [address] 05/11/2024 15:30:10 05/11/2024 16:42:41 Gestation period, 18 weeks 09189179 Z3A.18 continue vitamin [id number] Hector Garcia MD [facility] [address],[place] [address] 05/22/2024 13:30:39 05/22/2024 15:21:43 screening for malformation 431342906 Z36.3 Z3A.19 [id number] [facility] [address],[place] [address] 06/06/2024 14:11:39 06/06/2024 14:45:19 Gestation period, 21 weeks 39378365 Z3A.21 [id number] Hector Garcia MD [facility] [address],[place] [address] 06/26/2024 09:50:15 06/26/2024 10:41:01 Placental condition affecting management of mother 480667996 O43.102 O43.112 Z3A.24 [id number] SWETHA THOMAS MD [facility] [address],[place] [address] 06/29/2024 13:51:39 06/29/2024 14:51:45 Placenta circumvallata 4759429 O43.119 - monitor growth Marginal i nsertion of umbilical cord 03991974 O43.129 - growth US q4 weeks Gestation period, 25 weeks 76079523 Z3A.25 - continue PNV Breech presentation 6096 002 O32.1XX9 - will monitor presentati on [id number] MD Madyson Noble [address],[place] [address] 07/25/2024 11:33:15 07/25/2024 12:47:05 Placenta circumvallata 6909449 O43.113 Z3A.28 [id number] Michaela Brower CNM [facility] [address],[place] [address] 07/25/2024 11:33:33 07/25/2024 12:46:38 Gestation period, 28 weeks 76582431 Z3A.28 Placenta circumvallata 3552403 O43.119 [id number] [facility] [address],[place] [address] 08/10/2024 09:43:38 08/10/2024 10:11:18 Gestation period, 31 weeks 65904914 Z3A.31 [id number] Hector Garcia MD [facility] [address],[place] [address] 08/22/2024 14:19:17 08/22/2024 15:11:27 Placenta circumvallata 1396304 O43.113 O43.103 Z3A.32 [id number] Michaela Brower [facility] [address],[place] [address] 08/22/2024 14:19:33 08/22/2024 15:33:48 Gestation period, 32 weeks 7968944 Z3A.32 continue vitamin [id number] [facility] [address],[place] [address] 09/05/2024 15:25:15 09/05/2024 15:52:33 Gestation period, 34 weeks 46310243 Z3A.34 continue vitamin [id number] Hector Garcia MD [facility] [address],[place] [address] 10/09/2024 12:31:55 10/09/2024 13:32:03 Delayed AND/OR secondary hemorrhage 50323385 O72.2 [id number] Michaela Brower CNM [facility] [address],[place] [address] 10/17/2024 17:28:13 10/18/2024 11:48:59 Acute low back pain 233452914 M54.50 82271713 flexeril at hs , can cause increased sleepiness Anxiety 42098043 F41.9 95927 start zoloft in am zofran for nausea if neededany suicidal thoughts to ED reviewed risks of untreated anxiety/de pressionf/ u med check in 4 weeks Pruritus of vagina 10253 003 N89.8 559365 [id number] Olamide GagandeepcrystalJEREMY [facility] [address] [address] 11/12/2024 13:58:26 11/13/2024 10:33:51 Prescription of contraception 757873502 Z30.016 51148222 Discussed with patient risks, benefits, and alternativ es of contracept ion. Discussed all options, including natural family planning, condoms, combined oral contracept paddy, contracept theresa patch, Nuva-ring, Depo-Prove ra, Nexplanon, intrauteri ne device, and sterilizat ion (tubal ligation, vasectomy) . Advised that of the above listed options, only condoms can prevent sexually transmitte d infections and that condoms can be used together with any form of contracept ion. Discussed all control options in great detail. Pt would like to start xulane patch. She is aware of the risks and benefits. She does not have any medical condition that is contraindi cated with the use of estrogen containing control. Pt will place the patch on the first day following the start of her period and then replace weekly x 2 (total of 3 patches over 3 weeks) and week 4 no patch. She is aware it is not effective for control the first month. She is also aware that she will need to check placement daily to ensure it has not come off. Encouraged use of condoms as the patch does not protect against STI's. Acute low back pain 2788 85104 M54.50 9312596187 referral to PT placed Lesion of vulva 58118507 6 N90.89 344430 exam today wnlvulvar care guidelines discussed Time spent in visit is a total of 30 mins with at least 50% of visit consisting of counseling and review of plan of care. [id number] Michaela Brower CNM [facility] [address] [address] 12/05/2024 12:18:21 12/05/2024 13:22:54 Amenorrhea 07007785 N91.2 58351 Mixed anxi ety and depressive disorder 177907352 F41.8 6746031 start lexapro in am zofran for nausea if neededany suicidal thoughts to ED reviewed risks of untreated anxiety/de pressionf/ u med check in 4 weeks Initial pr escription of oral contraception 506044790 Z30.188 2635075 reviewed se risks and benefits give one month to be effective as control, condoms given [id number] JEREMY Moran [facility] [address],[place] [address] 04/22/2025 14:56:28 04/23/2025 09:10:56 Pain of breast 78201503 N64.4 79029 order given for bilateral breast u/slimit caffiene, supportive bras, avoid underwireR TC for WWE Time spent in visit is a total of 20 mins with at least 50% of visit consisting of counseling and review of plan of care. [id number] Hector Garcia MD [facility] [address],[place] [address] 05/16/2025 10:45:40 05/16/2025 11:22:11 Uterine size for dates discrepancy 853947754 O26.841 Z3A.01 O36.80X0 5940964 [id number] Hector Garcia MD [place] [address] [address] 05/16/2025 10:56:09 05/18/2025 08:03:12 Amenorrhea 21634965 N91.2 54335 this patient is a 24-year-ol d female [...] minutes on the patient's care in total. [id number] Hector Garcia MD [facility] [address],[place] [address] 06/05/2025 13:28:58 06/05/2025 14:43:27 Missed miscarriage 29362723 O02.1 12526 This patient is a 24 female who [...] 30 minutes on her care in total. [id number] Hector Garcia MD [facility] [address],[place] [address] 06/05/2025 13:27:36 06/05/2025 14:08:05 Missed miscarriage 06483347 O02.1 Z3A.01 95276 [id number] Hector Garcia MD [facility] [address],[place] [address] 06/18/2025 10:14:50 06/18/2025 10:54:34 Missed miscarriage 39683292 O02.1 Z3A.01 33469 [id number] Michaela Brower CNM [facility] [address],[place] [address] 06/18/2025 10:15:45 06/18/2025 11:23:24 Miscarriage 38436970 O03.9 62598 plan checking cbc and, check hgc quant until zero se risks and benefitsal so reviewed mirena iud will plan after quant is zero discussed risk of infection, perforatio n and expulsion Health Concerns Section Related Observation LastModified by Organization Detai ls LastModified Time None Recorded Concern Status LastModified by Organization Details LastModified Time None Recorded Advance Directives Directive N: Payers Insurance Date Sequence Insurance Name Policy Number Policy Jim Covered Member ID Jim Member ID Guarantor Name 06/21/2025 1 [facility] - DOS ON OR AFTER 20 (MEDICAID REPLACEMENT - HMO) Candidoyanelis Ashlee [id number] Maricel Rosado Notes Date Note Type Note [...] on the patient's care in total. Hector Garcia MD [address], [place], [address], [facility] 05/17/2025 17:54:32 06/05/2025 text/html This patient is a 24 [...] She will return in 1 week. Hector Garcia MD [address], [place], [address], [facility] 06/05/2025 14:43:23 06/18/2025 text/html ROS as noted in the HPI hx missed ab, had cytotec, bled heavily, now still spotting, reviewed us, lining 14.3 no visible Michaela Brower CNM [address], [place], [address], [facility] 06/18/2025 11:22:51 OBGyn Episode Ob Episode Information Episode Created Date Number of Fetuses Patient Bloodtype Patient rh Status Prepregnancy Weight lbs Domestic Partner Domestic Partner Phone Father Name Laundry Manager Status 05/24/20 22 1 O Positive 134 CLOSED Fetus Data First Name Last Name Admitted to NICU Weight (g) Sex Living Outcome Pediatric Complications Fetus ID Race Codes Race Delivery Type Atn 3146.79 45 M true Full Term [id number] Vaginal Delivery Problems Problem Notes Holly pt Problem Name Start Date End Date Resolution Snomed Code Not e Uterine size for dates discrepancy 10/05/2022 [id number] Asthma in 04/14/2022 [id number] mild, has inhaler Mark Calculation Initial Mark Date Initial Exam Date Initial Exam Provider Initial Ultrasound Date Last Menstrual Period Date Ultra Sound Weeks Gestation 11/30/2022 05/24/2022 04/14/2022 04/14/2022 7 Eighteen To Twenty Week Mark Update Ultra Sound Date Fundal Height At Umbil Quickening Date Ultra Sound Latest Weeks Gestation Final Mark Confirmed By Final Mark Confirmed Date Final Mark Date Ultra Sound Latest Days Gestation 0 [email or web address] 05/24/2022 12/01/19 23 0 Pre- Flowsheet Flowsheet Date 05/03/2022 Morris Score Blood Edema Fundus Height Fundus Units Glucose Ketones Leukocytes Nitrite Labor Signs Protein Cervic Dilation Cervic Effacement Cervic Station Type Weight in lbs Pre/Post Dialysis Refused BP Diastolic BP Location Tested BP Systolic BP Type Fetus Heart Rate Present Fetus Movement Comments Flowsheet Date 05/24/2022 Morris Score Blood Edema Fundus Height Fundus Units Glucose Ketones Leukocytes Nitrite Labor Signs Protein Cervic Dilation Cervic Effacement Cervic Station neg none none trace Type Weight in lbs Pre/Post Dialysis Refused Weight 138.990918772699 BP Diastolic BP Location Tested BP Systolic BP Type 75 108 Fetus Heart Rate Present A 160 Fetus Movement A No Comments Maricel is a 21yo G1 at 12.6 for care. Her history is noncontributory except for mild asthma. She has had her flu shot and will do her COVID booster soon. NT today wnl. Labs and NIPT today. Flowsheet Date 06/15/2022 Morris Score Blood Edema Fundus Height Fundus Units Glucose Ketones Leukocytes Nitrite Labor Signs Protein Cervic Dilation Cervic Effacement Cervic Station neg none none trace Type Weight in lbs Pre/Post Dialysis Refused Weight 143.003923741017 BP Diastolic BP Location Tested BP Systolic BP Type 67 101 Fetus Heart Rate Present A 165 Fetus Movement A Yes Comments Doing well. No concerns. Binta leonora Us next visit. Flowsheet Date 07/15/2022 Morris Score Blood Edema Fundus Height Fundus Units Glucose Ketones Leukocytes Nitrite Labor Signs Protein Cervic Dilation Cervic Effacement Cervic Station Type Weight in lbs Pre/Post Dialysis Refused BP Diastolic BP Location Tested BP Systolic BP Type Fetus Heart Rate Present Fetus Movement Comments Flowsheet Date 07/15/2022 Morris Score Blood Edema Fundus Height Fundus Units Glucose Ketones Leukocytes Nitrite Labor Signs Protein Cervic Dilation Cervic Effacement Cervic Station neg none Type Weight in lbs Pre/Post Dialysis Refused Weight 142.609504190539 BP Diastolic BP Location Tested BP Systolic BP Type 72 107 Fetus Heart Rate Present Fetus Movement A Yes Comments Doing well. Baseline anatomy today. Did note a short cervix without funneling. Anticipate MFM consult. Will wait for recommendations. Flowsheet Date 08/09/2022 Morris Score Blood Edema Fundus Height Fundus Units Glucose Ketones Leukocytes Nitrite Labor Signs Protein Cervic Dilation Cervic Effacement Cervic Station neg none 24 none trace Type Weight in lbs Pre/Post Dialysis Refused Weight 156.700611118091 BP Diastolic BP Location Tested BP Systolic BP Type 74 118 Fetus Heart Rate Present A 155 Fetus Movement A Yes Comments Doing well. Encouraged to st art thinking about preferences, pedi, childbirth classes. Plan gtt at next visit. Instructions given. Flowsheet Date 09/06/2022 Morris Score Blood Edema Fundus Height Fundus Units Glucose Ketones Leukocytes Nitrite Labor Signs Protein Cervic Dilation Cervic Effacement Cervic Station neg none 27 none trace Type Weight in lbs Pre/Post Dialysis Refused Weight 164.34058828647 BP Diastolic BP Location Tested BP Systolic BP Type 73 112 Fetus Heart Rate Present A 130 Fetus Movement A Yes Comments Doing well. Discussed CL was 2.6, low normal. Denies contractions, pressure, other labor signs. Precautions discussed. GCT today. Discussed and encouraged Tdap. Flowsheet Date 09/21/2022 Morris Score Blood Edema Fundus Height Fundus Units Glucose Ketones Leukocytes Nitrite Labor Signs Protein Cervic Dilation Cervic Effacement Cervic Station none 29 Type Weight in lbs Pre/Post Dialysis Refused Weight 164.76444553505 BP Diastolic BP Location Tested BP Systolic BP Type 76 107 Fetus Heart Rate Present A 150 Fetus Movement A Yes Comments Doing fine, no concerns. GCT wnl, Hgb was 10.5, taking iron. Did not get Tdap yet. Flowsheet Date 10/05/2022 Morris Score Blood Edema Fundus Height Fundus Units Glucose Ketones Leukocytes Nitrite Labor Signs Protein Cervic Dilation Cervic Effacement Cervic Station neg none 29 none trace Type Weight in lbs Pre/Post Dialysis Refused Weight 164.24037327660 BP Diastolic BP Location Tested BP Systolic BP Type 69 110 Fetus Heart Rate Present A 135 Fetus Movement A Yes Comments Doing well, lots of movement . Tdap done, taking iron daily. will add US next visit for S<D. Flowsheet Date 10/19/2022 Morris Score Blood Edema Fundus Height Fundus Units Glucose Ketones Leukocytes Nitrite Labor Signs Protein Cervic Dilation Cervic Effacement Cervic Station trace Type Weight in lbs Pre/Post Dialysis Refused Weight 168.372342910563 BP Diastolic BP Location Tested BP Systolic BP Type 70 112 Fetus Heart Rate Present A 150 Fetus Movement A Yes Comments Doing ok except very nauseat ed in ams at work, krystin sent, discussed side effects. US today 57%. GBS next visit. Flowsheet Date 10/19/2022 Morris Score Blood Edema Fundus Height Fundus Units Glucose Ketones Leukocytes Nitrite Labor Signs Protein Cervic Dilation Cervic Effacement Cervic Station Type Weight in lbs Pre/Post Dialysis Refused BP Diastolic BP Location Tested BP Systolic BP Type Fetus Heart Rate Present A 150 Fetus Movement Comments Flowsheet Date 11/01/2022 Morris Score Blood Edema Fundus Height Fundus Units Glucose Ketones Leukocytes Nitrite Labor Signs Protein Cervic Dilation Cervic Effacement Cervic Station 36 none trace Type Weight in lbs Pre/Post Dialysis Refused Weight 169.357534237552 BP Diastolic BP Location Tested BP Systolic BP Type 73 R arm 111 sitting Fetus Heart Rate Present A 184 Fetus Movement A Yes Comments tachycardia, to have N ST, otherwise no issues, GBS done Flowsheet Date 11/01/2022 Morris Score Blood Edema Fundus Height Fundus Units Glucose Ketones Leukocytes Nitrite Labor Signs Protein Cervic Dilation Cervic Effacement Cervic Station Type Weight in lbs Pre/Post Dialysis Refused BP Diastolic BP Location Tested BP Systolic BP Type Fetus Heart Rate Present Fetus Movement Comments Flowsheet Date 11/09/2022 Morris Score Blood Edema Fundus Height Fundus Units Glucose Ketones Leukocytes Nitrite Labor Signs Protein Cervic Dilation Cervic Effacement Cervic Station neg trace 33 none trace 1cm 60% Type Weight in lbs Pre/Post Dialysis Refused Weight 172.502672404820 BP Diastolic BP Location Tested BP Systolic BP Type 81 116 Fetus Heart Rate Present A 145 Fetus Movement A Yes Comments Doing well. GBS neg. Lead to day. Occasional contractions. Wants 39w IOL, discussed, will schedule. Labor precautions. Flowsheet Date 11/16/2022 Morris Score Blood Edema Fundus Height Fundus Units Glucose Ketones Leukocytes Nitrite Labor Signs Protein Cervic Dilation Cervic Effacement Cervic Station neg none 34 none trace 1cm 80% -2 Type Weight in lbs Pre/Post Dialysis Refused Weight 169.738957724533 BP Diastolic BP Location Tested BP Systolic BP Type 78 111 Fetus Heart Rate Present A 130 Fetus Movement A Yes Comments Doing fine, just uncomfortab le, pelvic pain. Cervix 1.5/80/-2. IOL scheduled in one week, discussed, questions answered. Precautions given. Menstrual History Last Menstrual Date Menses Monthly On Bcp Conception Prior Menses Frequency Hcg Plus Date Menarche Onset Age 1004/14/2022 Genetic Screening And Infection History Question Response Note Mental Retardation/Autism false Patient's Age Will Be 35 Years Or Older At Estim ated Date of Delivery false Thalassemia (Sinhala, French, Mediterranean, Or Background): MCV < 80 false Neural Tube Defect (Meningomyelocele, Spina Bifi da, Or Anencephaly) false Congenital Heart Defect false Down Syndrome false Ger-Sachs (eg, Yazdanism, Cajun, Serbian-[place]) f alse Bill Disease false Sickle Cell Disease Or Trait () false Hemophilia Or Other Blood Disorders false Muscular Dystrophy false Cystic Fibrosis false Payton's Chorea false Intellectual Disability/Autism false If Yes, Was Person Tested For Fragile X? false Other Inherited Genetic Or Chromosomal Disorder false Maternal Metabolic Disorder (eg, Type 1 Diabetes , PKU) false Patient Or Baby's Father Had A Child With Defects Not Listed Above false Recurrent Loss, Or A Stillbirth false Medications (including Suppl ements, Vitamins, Herbs, OTC Drugs), Illicit/Recreational Drugs, Alcohol false If Yes, Agent(s) And Strength/Dosage false Any Other Genetic History false Live With Someone With TB Or Exposed To TB false Patient Or Partner Has History Of Genital Herpes false Rash Or Viral Illness Since Last Menstrual Perio d false History Of STD, Gonorrhea, Chlamydia, HPV, Syphi lis false Other Infection History false History of HIV false History of Hepatitis false Prior GBS-infected child false Hemoglobinopathy Or Carrier false Other Structural Defect false Recent Travel History Outside of Country false Delivery Information Delivery Date Delivery Type Labor Anesthesia Weeks Gestation Incision Type Labor Labor Length Hrs Delivered By Post Complications Tubal Sterilization Discharge Date Comments 3 Induce d Local 39.1 Demetria Kellogg MD asthma Discharge Information Feeding Method Contraceptive Method Maternal HG B and HCT Levels Ob Episode Information Episode Created Date Number of Fetuses Patient Bloodtype Patient rh Status Prepregnancy Weight lbs Domestic Partner Domestic Partner Phone Father Name Laundry Manager Status 06/05/20 25 1 CLOSED Fetus Data First Name Last Name Admitted to NICU Weight (g) Sex Living Outcome Pediatric Complications Fetus ID Race Codes Race Delivery Type , Spontane ous [id number] Mark Calculation Initial Mark Date Initial Exam [...] Post Complications Tubal Sterilization Discharge Date Comments 5 Discharge Information Feeding Method Contraceptive Method Maternal HG B and HCT Levels Ob Episode Information Episode Created Date Number of Fetuses Patient Bloodtype Patient rh Status Prepregnancy Weight lbs Domestic Partner Domestic Partner Phone Father Name Laundry Manager Status 06/03/20 25 1 DELETED Fetus Data First Name Last Name Admitted to NICU Weight (g) Sex Living Outcome Pediatric Complications Fetus ID Race Codes Race Delivery Type [id number] Mark Calculation Initial Mark Date Initial Exam Date Initial Exam Provider Initial Ultrasound Date Last Menstrual Period Date Ultra Sound Weeks Gestation 06/03/2025 0 Eighteen To Twenty Week Mark Update [...] Post Complications Tubal Sterilization Discharge Date Comments Discharge Information Feeding Method Contraceptive Method Maternal HG B and HCT Levels Ob Episode Information Episode Created Date Number of Fetuses Patient Bloodtype Patient rh Status Prepregnancy Weight lbs Domestic Partner Domestic Partner Phone Father Name Laundry Manager Status 04/06/20 24 1 O Positive 134 CLOSED Fetus Data First Name Last Name Admitted to NICU Weight (g) Sex Living Outcome Pediatric Complications Fetus ID Race Codes Race Delivery Type 2579.80 45 F true [place] [id number] Vaginal Delivery Problems Problem Notes Problem Name Start Date End Date Resolution Snomed Code Not e Asthma [id number] 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 [id number] serial growth Mark Calculation Initial Mark Date Initial Exam Date Initial Exam Provider Initial Ultrasound Date Last Menstrual Period Date Ultra Sound Weeks Gestation 04/06/2024 04/06/2024 02/19/2024 13 Eighteen To Twenty Week Mark Update Ultra Sound Date Fundal Height At Umbil Quickening Date Ultra Sound Latest Weeks Gestation Final Mark Confirmed By Final Mark Confirmed Date Final Mark Date Ultra Sound Latest Days Gestation 04/06/20 24 13 [email or web address] 04/06/2024 10/12/19 25 1 Pre- Flowsheet Flowsheet Date 04/06/2024 Morris Score Blood Edema Fundus Height Fundus Units Glucose Ketones Leukocytes Nitrite Labor Signs Protein Cervic Dilation Cervic Effacement Cervic Station Type Weight in lbs Pre/Post Dialysis Refused Weight 134.64883347869 BP Diastolic BP Location Tested BP Systolic BP Type 70 L arm 104 sitting Fetus Heart Rate Present A 145 Fetus Movement A No Comments this patient is a 23-year-ol d multiparous female at 12 weeks' gestation who presents for initial care. She has a history of term vaginal births. Her medical, surgical, obstetric history is unremarkable. She is vaccinated. She was given precautions recommendations for . We talked about vaccines in . Talked about care in detail. She is having genetic testing. She had a normal 12 week ultrasound. To begin routine care. Flowsheet Date 05/11/2024 Morris Score Blood Edema Fundus Height Fundus Units Glucose Ketones Leukocytes Nitrite Labor Signs Protein Cervic Dilation Cervic Effacement Cervic Station Type Weight in lbs Pre/Post Dialysis Refused 140.702213554361 BP Diastolic BP Location Tested BP Systolic BP Type 67 99 Fetus Heart Rate Present Fetus Movement A Yes Comments +FM, doing well does not marbella erate tums will do protonix Flowsheet Date 05/22/2024 Morris Score Blood Edema Fundus Height Fundus Units Glucose Ketones Leukocytes Nitrite Labor Signs Protein Cervic Dilation Cervic Effacement Cervic Station Type Weight in lbs Pre/Post Dialysis Refused BP Diastolic BP Location Tested BP Systolic BP Type Fetus Heart Rate Present Fetus Movement Comments Flowsheet Date 06/06/2024 Morris Score Blood Edema Fundus Height Fundus Units Glucose Ketones Leukocytes Nitrite Labor Signs Protein Cervic Dilation Cervic Effacement Cervic Station none Type Weight in lbs Pre/Post Dialysis Refused 156.421132784044 BP Diastolic BP Location Tested BP Systolic BP Type 71 106 Fetus Heart Rate Present Fetus Movement A Yes Comments Patient states that has yeas t infection and discharge. reviewed us and discussed placenta will rpt us in 4 weeks, diflucan for yeast sxs, culture collected Flowsheet Date 06/26/2024 Morris Score Blood Edema Fundus Height Fundus Units Glucose Ketones Leukocytes Nitrite Labor Signs Protein Cervic Dilation Cervic Effacement Cervic Station Type Weight in lbs Pre/Post Dialysis Refused BP Diastolic BP Location Tested BP Systolic BP Type Fetus Heart Rate Present Fetus Movement Comments Flowsheet Date 06/29/2024 Morris Score Blood Edema Fundus Height Fundus Units Glucose Ketones Leukocytes Nitrite Labor Signs Protein Cervic Dilation Cervic Effacement Cervic Station neg trace Type Weight in lbs Pre/Post Dialysis Refused 165.421061341302 BP Diastolic BP Location Tested BP Systolic BP Type 72 L arm 108 sitting Fetus Heart Rate Present Fetus Movement A Yes Comments Patient c/o of swelling in f eet and legs. No cramping or bleeding. Good movement. EFW 59% on 06/26, breech. Repeat q4 weeks for MCI. Discussed GCT and labs for next visit. RTC 3 weeks. Flowsheet Date 07/25/2024 Morris Score Blood Edema Fundus Height Fundus Units Glucose Ketones Leukocytes Nitrite Labor Signs Protein Cervic Dilation Cervic Effacement Cervic Station Type Weight in lbs Pre/Post Dialysis Refused BP Diastolic BP Location Tested BP Systolic BP Type Fetus Heart Rate Present Fetus Movement Comments Flowsheet Date 07/25/2024 Morris Score Blood Edema Fundus Height Fundus Units Glucose Ketones Leukocytes Nitrite Labor Signs Protein Cervic Dilation Cervic Effacement Cervic Station neg trace Type Weight in lbs Pre/Post Dialysis Refused 175.235100985805 BP Diastolic BP Location Tested BP Systolic BP Type 73 110 Fetus Heart Rate Present Fetus Movement A Yes Comments Patient states that has some swelling. Flowsheet Date 08/10/2024 Morris Score Blood Edema Fundus Height Fundus Units Glucose Ketones Leukocytes Nitrite Labor Signs Protein Cervic Dilation Cervic Effacement Cervic Station trace Type Weight in lbs Pre/Post Dialysis Refused 175.608283744485 BP Diastolic BP Location Tested BP Systolic BP Type 80 132 Fetus Heart Rate Present Fetus Movement A Yes Comments Patient is having some contr actions and swelling. Flowsheet Date 08/22/2024 Morris Score Blood Edema Fundus Height Fundus Units Glucose Ketones Leukocytes Nitrite Labor Signs Protein Cervic Dilation Cervic Effacement Cervic Station Type Weight in lbs Pre/Post Dialysis Refused BP Diastolic BP Location Tested BP Systolic BP Type Fetus Heart Rate Present Fetus Movement Comments Flowsheet Date 08/22/2024 Morris Score Blood Edema Fundus Height Fundus Units Glucose Ketones Leukocytes Nitrite Labor Signs Protein Cervic Dilation Cervic Effacement Cervic Station neg trace Type Weight in lbs Pre/Post Dialysis Refused 172.991042041400 BP Diastolic BP Location Tested BP Systolic BP Type 69 109 Fetus Heart Rate Present Fetus Movement A Yes Comments Patient states that has some swelling. reviewed US, efw 48%, call for preadmit education and precautions f/u 2 weeks Flowsheet Date 09/05/2024 Morris Score Blood Edema Fundus Height Fundus Units Glucose Ketones Leukocytes Nitrite Labor Signs Protein Cervic Dilation Cervic Effacement Cervic Station neg trace 36 cm neg Type Weight in lbs Pre/Post Dialysis Refused Weight 179.440717777618 BP Diastolic BP Location Tested BP Systolic BP Type 79 125 Fetus Heart Rate Present A 144 Present Fetus Movement A Yes Comments Patient is having pressure, contractions and swelling. reviewed education and precautions plan gbs next visit, doing well +FM Menstrual History Last Menstrual Date Menses Monthly On Bcp Conception Prior Menses Frequency Hcg Plus Date Menarche Onset Age 0802/19/2024 false Delivery Information Delivery Date Delivery Type Labor Anesthesia Weeks Gestation Incision Type Labor Labor Length Hrs Delivered By Post Complications Tubal Sterilization Discharge Date Comments 5 Augmen tyrone 36.2 Sa labor / gbs unknown Discharge Information Feeding Method Contraceptive Method Maternal HG B and HCT Levels
--- OUTSIDE RECORDS SUMMARY | 2025-06-25 02:11 | XMS_ITS | Continuity of Care Document ---
Author Organization [facility] Address [address] [place] [address] Care Team Providers Care Metal Sprayer Protective Coating Name Role Phone DARBY SINGH Primary Care [...] Lab CBC w/ auto diff [address] [facility] (Lab), [address] [place], [address], 06/19/2025 06:57:22 beta-HCG , quantita tive, serum or plasma [address] [facility] (Lab), [address] [place], [address], 06/19/2025 06:57:22 Referral None recorded . Procedures None recorded . Surgeries None recorded . Imaging None recorded . Medication Orders None recorded . Patient TargetsNo targets recorded. Patient InstructionsNo instructions recorded. Reason for Referral None Reported. Results Created Date Observation Date Name Description Value Unit Range Abnormal Flag Note LastModifiedBy Organization Detail LastModifiedTime 06/05/2006/05/2025 US, obste tric, trans vagin al No observ ation record ed. [facility] [address], [place], [address], 06/05/2025 16:23:37 06/05/20 25 06/05/2025 US, obste tric, trans vagin al No observ ation record ed. [email or web address] [address]li [address], [place], [address], 06/08/2025 00:14:52 06/18/20 25 06/18/2025 US, obste tric, trans vagin al No observ ation record ed. [email or web address] [facility] [address], [place], [address], 06/18/2025 13:04:32 06/18/20 25 06/18/2025 US, obste tric, trans vagin al No observ ation record ed. [email or web address] [address], [place], [address], 06/24/2025 22:46:38 Result Notes None recorded. Problems Name Problem SNOMED Code Status Onset Date Resolution Date Notes Provider Name and Address Organization Details Recorded Time Asthma 779819982 Active Hector Quijano MD [address], [place], [address], [facility] 4 15:10:50 Asthma 906660790 Completed Hector Quijano MD [address], [place], [address], [facility] 4 15:10:50 Marginal insertio n of umbilica l cord 30473472 Completed serial growth Michelle Witt null, [facility] 4 11:44:25 Placenta circumva llata 5412427 Completed Gabriel marvin, [facility] 4 09:51:05 Asthma in pregnanc y 2365709810 9103 Completed 2021 mild, has inhaler Gabriel Phillips [facility], [facility] 3 16:00:15 Pregnanc y 84415799 Completed 202112/10/2022 Vickie Sierra [facility], [facility] 5 13:47:46 Uterine size for dates discrepa ncy 730104752 Completed 2022 Gabriel Phillips [facility], [facility] 3 16:00:15 Pregnanc y 78482807 Completed 202310/06/2024 Vickie Sierra [facility], [facility] 5 13:47:46 Mixed anxiety and depressi ve disorder 910052184 Active 2024 Mirian Novak [facility] 5 12:52:52 Problem Notes None recorded. Procedures Surgical History Date Name Laterality Status Provider Name and Address Organization Details Recorded Time 4 IUD Insertion cancelled Jennifer Ruano [facility] 10/06/2023 15:37:22 1 procedure on hand completed Miriandmitry Novak [facility] 08/09/2022 10:18:28 1 [facility] elbow [facility]/09[facility] 10:18:23 Imaging Results None recorded. Procedure Notes None recorded. Medical Equipment None Reported. Allergies Allergen ID Allergen Name Allergen Category Reaction Reaction Severity Criticality Documentation Date Start Date Code Code System Note Provider Name and Address Organization Details Recorded Time amoxicill in medicatio n Not available Not available Not available 04/14/2022 723 RxNorm Vanessa Matthieu [facility] 2 14:37:19 61471 povidone- iodine medicatio n rash Not available [...] completed Not Available Not Available Not Available Depo-Shackler a 150 mg/mL intramuscul ar suspension Inject [...] Updated DateTime 06/18/2025 165.1 cm 25 kg/m2 87493.86 g 102/70 mm[Hg] Radha Blue [facility] 06/18/2025 11:08:38 Social History Question Answer Notes LastModified by Organizat ion Details LastModified Time Tobacco Smoking Status Never Smoker Mirian Kishore marvin, [facility] 08/09/2022 10:11:03 Do You Have An Advance Directive? No [email or web address] Information n ot available 08/09/2022 Are You Blind Or Do You Have Difficulty Seeing? No [email or web address] Information n ot available 08/09/2022 What Is Your Level Of Caffeine Consumption? Occasional [email or web address] Information not available 08/09/2022 How Much Tobacco Do You Chew? None [email or web address] Information not available 08/09/2022 In The 14 Days Before Symptom Onset, Have You Had Close Contact With A Laboratory-confirm ed COVID-19 While That Case Was Ill? No [email or web address] Information n ot available 08/09/2022 In The 14 Days Before Symptom Onset, Have You Had Close Contact With A Person Who Is Under Investigation For COVID-19 While That Person Was Ill? No [email or web address] Information not available 08/09/2022 Have You Been To An Area Known To Be High Risk For COVID-19? No [email or web address] Information not available 08/09/2022 Are You Deaf Or Do You Have Serious Difficulty Hearing? No Information not available 08/09/2022 What Type Of Diet Are You Following? REGULAR Information n ot available 08/09/2022 What Is The Highest Grade Or Level Of School You Have Completed Or The Highest Degree You Have Received? EW34041-6 [email or web address] Information not available 08/09/2022 Are There Any Guns Present In Your Home? No [email or web address] Information not available 08/09/2022 Do You Use Protection During Sex? No [email or web address] Information not available 08/09/2022 Do You Use Your Seat Belt Or Car Seat Routinely? Yes [email or web address] Information not available 08/09/2022 Do You Have Smoke And Carbon Monoxide Detectors In Your Home? No [email or web address] Information not available 08/09/2022 How Much Tobacco Do You Smoke? No [email or web address] Information not available 08/09/2022 Do You Use Sunscreen Routinely? Yes [email or web address] Information not available 08/09/2022 Has Tobacco Cessation Counseling Been Provided? No Information not available 08/09/2022 Have You Used IV Drugs? Yes [email or web address] Information not available 08/09/2022 Do You Have Difficulty Walking Or Climbing Stairs? No [email or web address] Information not available 08/09/2022 Sex: Unknown Functional Status Question Answer Note LastModified by Organizat ion Details LastModified Time Do you use any illicit or recreational drugs? No Information not available 04/14/2022 Do you or have you ever used any other forms of tobacco or nicotine? No [email or web address] Information not available 08/09/2022 What is your level of alcohol consumption? None Information not available 04/14/2022 Are you able to walk independently without assistance or assistive devices? YESWOREST [email or web address] Information not available 08/09/2022 Are you able to care for yourself independently? Yes [email or web address] Information not available 08/09/2022 Do you have difficulty dressing, bathing, grooming, or toileting? No [email or web address] Information not available 08/09/2022 What is your exercise level? None [email or web address] Information not available 08/09/2022 Mental Status Question Answer Note LastModified by Organization D etails LastModified Time Do you feel stressed (tense, restless, nervous, or anxious, or unable to sleep at night)? [id number] Information not available 08/09/2022 Family History Relationship [...] ICD10 Code Diagnosis IMO Codes Diagnosis Note [id number] Hector Quijano MD [facility] [address] [address] 06/05/2025 13:28:58 06/05/2025 14:43:27 Missed miscarriage [id number] O02.1 87205 This patient is a 24 female who [...] 30 minutes on her care in total. [id number] Hector Quijano MD [facility] [address] [address] 06/05/2025 13:27:36 06/05/2025 14:08:05 Missed miscarriage [id number] O02.1 Z3A.01 33000 [id number] Hector Quijano MD [facility] [address] [address] 06/18/2025 10:14:50 06/18/2025 10:54:34 Missed miscarriage [id number] O02.1 Z3A.01 81174 [id number] Michaela Brower CNM [facility] [address] [address] 06/18/2025 10:15:45 06/18/2025 11:23:24 Miscarriage 91120057 O03.9 41740 plan checking cbc and, check hgc quant [...] Jim Member ID Guarantor Name 06/18/2025 1 [facility] - DOS ON OR AFTER 20 (MEDICAID REPLACEMENT - HMO) Maricel Rosado [id number] Maricel Rosado Notes Date Note Type Note Provider Name and Address Organization Details Recorded Time 06/18/2025 text/html ROS as noted in the HPI hx missed ab, had cytotec, bled heavily, now still spotting, reviewed us, lining 14.3 no visible Michaela Brower CNM [address], [place], [address], [facility] 06/18/2025 11:22:51 OBGyn Episode No OBEpisode recorded.
[2025-06-25] MEDS: LACTATED RINGERS 1,000 ML 30 ML IV CONT (10:30)
[2025-06-25] MEDS: ACETAMINOPHEN 500 MG TABLET 1000 MG PO (10:30)
[2025-06-25 11:14] VITALS: BP 101/64; PULSE 79; RESP 16; TEMP 36.4; O2SAT 100; BMI 24.5
--- NOTE | 2025-06-25 13:11 | P.PNAN_ITS ---
Anes - Initial Pre Proc Eval Procedure: Operation Date: 06/25/25 13:00 Proposed Procedures p Suction Dilation and Curettage - Hector Garcia MD Date/Time: 06/25/25 13:11 Surgeon: Hector Garcia MD Pre Op Diagnosis: Incomplete Patient Data Age: 24 Gender: F Height: 1.65 m Weight: 66.7 kg Last Vital Signs Temp 36.4 C L 06/25/25 11:14 Pulse 79 06/25/25 11:14 Resp 16 06/25/25 11:14 BP 101/64 06/25/25 11:14 Pulse Ox 100 06/25/25 11:14 O2 Del Method Room Air 06/25/25 11:14 Allergies Allergy/AdvReac Type Severity Reaction Status Date / Time adhesive tape Allergy Mild Rash Verified 06/24/25 10:44 amoxicillin Allergy Mild Rash Verified 06/24/25 10:44 Home Medications ?Medication ?Instructions ?Recorded ?Confirmed ?Type No Home Medications 06/24/25 06/24/25 H istory Patient hx anesthesia problems: none Family hx anesthesia problems: none Results Review: All pre-operative results and documents have been reviewed as part of the pre- operative evaluation. [facility] Family History Family History (System 09/17/24 @ 13:35 by Lora Richardson) Sibling Asthma Mother Asthma Other No pertinent family history Social History Social History (System 09/17/24 @ 13:35 by Lroa Richardson) Smoking status: Current every day smoker Tobacco type: e-cigarettes/vaping Second hand tobacco smoke exposure: No Additional smoking assessment comments: vapes nicotine daily Alcohol intake: current Alcohol use details: one per month Substance use: never Substance use type: other Last use: [id number] Lack of Transportation: No Lack of Food: Never True Current Housing: I Have Housing Concerned About Future Housing: No Difficulty Paying Gas/Electric Bills: No Difficulty Paying for Meds: No Currently Unemployed: No Education: High School Diploma/GED Difficulty w/ Childcare or Family Care: No Living arrangements: with family Spiritual care concerns: No Anes - Eval Final PreProcedure Day of Procedure 06/25/25 13:11 Patient weight: normal Heart: regular rate and rhythm Lungs: clear to auscultation and normal air movement Airway: Mallampati scale class II Neurological: alert and oriented Last oral intake: >/= 8 hours ASA classification: II Emergent: no Anesthetic plan: proceed Anesthesia type and monitoring: general GIVS and standard monitoring Results Review: All pre-operative results and documents have been reviewed as part of the pre- operative evaluation. Informed Consent: The patient's anesthetic plan and its attendant risks and benefits were discussed with the patient/family/POA. Questions were solicited and answers provided to the satisfaction of the patient/family/POA.
--- NOTE | 2025-06-25 13:20 | P.HP_ITS ---
H&P: HPI History of Present Illness Date/Time: 06/25/25 13:20 Chief Complaint: Missed miscarriage Narrative: This patient is a 24-year-old female with a missed miscarriage. We agreed to perform suction D&C. She understands risks, benefits, and alternatives. She has completed informed consent process is ready to proceed. The patient understands the details of the procedure. The procedure has been explained in detail. She understands the risks. She understands that injuries may occur that result in hospitalization, more surgery, and severe illness. She understands risk of hemorrhage and infection. She denies any chest pain or shortness of breath. She denies any nausea, vomiting, fever, chills. Review of Systems Review of Systems: All systems reviewed & are unremarkable except as noted in HPI and below Constitutional: Constitutional: Denies chills, Denies fatigue, Denies fever(s) and Denies weakness Eyes: Eyes: Denies blurry vision, Denies change in vision, Denies loss of peripheral vision, Denies loss of vision, Denies other visual disturbances and Denies eye pain ENT: Denies vertigo, Denies dizziness, Denies hearing loss, Denies mouth pain, Denies nasal obstruction, Denies neck mass and Denies neck pain Cardiovascular: Cardiovascular: Denies chest pain, Denies diaphoresis, Denies syncope, Denies leg edema and Denies dyspnea Respiratory: Respiratory: Denies chest congestion, Denies cough, Denies hemoptysis, Denies dyspnea and Denies wheezing Gastrointestinal: Gastrointestinal: Denies abdominal pain, Denies constipation, Denies diarrhea, Denies nausea and Denies vomiting Genitourinary: Genitourinary: Denies hematuria, Denies change in libido, Denies nocturia, Denies genital lesions, Denies flank pain and Denies urinary urgency Musculoskeletal: Musculoskeletal: Denies abnormal gait, Denies back pain, Denies myalgias, Denies arthralgias, Denies joint swelling, Denies muscle weakness and Denies neck pain Integumentary/Breasts: Skin/Breast: Denies swelling, Denies breast pain, Denies breast mass, Denies dry skin, Denies nipple discharge, Denies unusual bruising and Denies jaundice Neurologic: Denies Neuro-related abnormal movements, Denies Abnormal speech present, Denies abnormal gait, Denies behavioral changes, Denies confusion, Denies vertigo, Denies dizziness, Denies syncope, Denies loss of vision, Denies memory loss, Denies convulsions and Denies weakness Psychiatric: Psychiatric: Denies abnormal sleep pattern, Denies behavioral changes, Denies change in libido, Denies confusion, Denies depression, Denies anhedonia and Denies memory loss Endocrine: Endocrine: Reports no additional endocrine complaints, Denies change in libido and Denies fatigue Hematologic/Lymphatic: Hematologic/Lymphatic: Reports no additional hematologic/lymphatic complaints Allergic/Immunologic: Allergic/Immunologic: Reports no additional allergic/immunologic complaints and Denies wheezing [facility] Family History Family History (System 09/17/24 @ 13:35 by Lora Richardson) Sibling Asthma Mother Asthma Other No pertinent family history Social History Social History (System 09/17/24 @ 13:35 by Lora Richardson) Smoking status: Current every day smoker Tobacco type: e-cigarettes/vaping Second hand tobacco smoke exposure: No Additional smoking assessment comments: vapes nicotine daily Alcohol intake: current Alcohol use details: one per month Substance use: never Substance use type: other Last use: [id number] Lack of Transportation: No Lack of Food: Never True Current Housing: I Have Housing Concerned About Future Housing: No Difficulty Paying Gas/Electric Bills: No Difficulty Paying for Meds: No Currently Unemployed: No Education: High School Diploma/GED Difficulty w/ Childcare or Family Care: No Living arrangements: with family Spiritual care concerns: No Meds Home Medications and Allergies Home Medications ?Medication ?Instructions ?Recorded ?Confirmed ?Type No Home Medications 06/24/25 06/24/25 H istory Allergies Allergy/AdvReac Type Severity Reaction Status Date / Time adhesive tape Allergy Mild Rash Verified 06/24/25 10:44 amoxicillin Allergy Mild Rash Verified 06/24/25 10:44 Vital Signs Vital Signs - 24 hr 06/25/25 11:14 Temperature 97.5 F L Pulse Rate 79 Respiratory Rate 16 Blood Pressure 101/64 Pulse Oximetry 100 Oxygen Delivery Room Air Exam Const: General: cooperative, healthy appearing, comfortable and no acute distress Orientation/consciousness: oriented to person, oriented to place and oriented to time HENMT: Head: normal to inspection Ears: external ears normal Face/Nose/Sinus: Normal external nose present and normal facial exam Face and sinus: normal facial exam Eyes: General: appearance normal, both eyes and all related structures Neck: Neck: normal visual inspection, trachea midline and supple Resp: Auscultation: clear to auscultation bilaterally, no crackles, no rales, no rhonchi and no wheezes Cardio: Rate: regular rate Rhythm: regular rhythm Heart sounds: no click, no murmurs and no rubs GI: GI Palp: No abdominal tenderness, No Soft to palpation, No Tenderness to palpation present (GI) and No Palpable mass present Auscultation: normal bowel sounds Skin: General skin exam: normal color and no rashes or lesions noted Neuro: General: oriented to person, oriented to place and oriented to time Extrem: General: normal to inspection, no joint enlargement, no clubbing, cyanosis or edema, no pedal edema and no calf tenderness Psych: Appearance: grossly normal Mental Status: mental status grossly normal Speech and movement: Normal speech and movement present Assessment and Plan Assessment and plan (1) Missed : Code(s): O02.1 - Missed Status: Acute Plan This patient is a 24-year-old female with a missed miscarriage. We agreed to perform suction D&C. She understands risks, benefits, and alternatives. She has completed informed consent process is ready to proceed.
--- NOTE | 2025-06-25 13:22 | WPDHPUPDATE1 ---
History and Physical Update Update Date/Time: 06/25/25 13:22 History and Physical has been reviewed, including an updated exam of the patient. There are NO changes in the patient's condition. Risks, benefits, and alternatives have been discussed and questions answered. Patient agrees to proceed with procedure.
--- NOTE | 2025-06-25 14:13 | S_PTH ---
PATIENT: Maricel Rosado LOC: [facility] U#:[id number] AGE/SX: 24/F ROOM: RE06/25/[address]: Hector Garcia MD : 2000 BED: DIS: 06/25/2025 SPEC #: [id number] RECD: 06/26/25 07:44 STATUS: URSULA REAndrea #: [id number] VICKI: 06/25/25 14:[address]: Hector Garcia DEPT: [facility] Surgical RECD BY: Quin Cordon ENTERED: 06/26/25 07:44 SP TYPE: Surgical OTHR DR: ART THERAPIST PHYSICIAN Tissues: A - Uterine Contents Procedures: Hematoxylin and Eosin Stain Gross and Microscopic Level 4
[2025-06-25 14:30] VITALS: BP 95/53; PULSE 62
--- NOTE | 2025-06-25 14:33 | W.PM.PROC2 ---
Procedure Note - Detailed Date of Procedure 06/25/25 Pre-op Diagnosis Incomplete Post-op Diagnosis Same Procedure Performed Suction D&C Surgeon Hector Garcia MD Anesthesia MAC Indications missed Findings normal-appearing vulva vagina and cervix to. Moderate amount of products conception within the uterus. 8 cm uterus Description of Procedure the patient was taken the operating room. She was prepped and draped in dorsal lithotomy position after induction of mac anesthesia. A speculum was placed in the vagina. Cervix grasped with tenaculum. The cervix was dilated to about 1 cm Using Chavis dilators. A 8. Trinidadian curved curette was used to perform suction D&C. The curette was introduced and vacuum was applied. The curette was removed over all surfaces of the intrauterine cavity multiple times. This was done until all the surfaces were clear and had the familiar grainy texture they can be felt through the instrument. A sharp curette was then used to curettage all the surfaces. The suction cup was then reapplied 1 more time to remove any debris. The instruments were removed. The speculum and tenaculum were removed. The patient tolerated the procedure well. She was taken recovery room stable condition. Estimated Blood Loss 50 Drains No Packing No Pathology Yes Complications No immediate complications Condition Stable Disposition PACU
[2025-06-25 15:00] VITALS: BP 95/52; PULSE 53
[2025-06-25 15:30] VITALS: BP 102/56; PULSE 64
== END 2025-06-25 15:50 | disposition home or self-care (01) ==
PROVIDERS: Visit Provider Obstetrics & Gynecology
PROC: (CPT 59820; principal; 2025-06-25 13:00)
DX: O02.1 Missed abortion (principal)
CPT/HCPCS: 59820; 88305; A9270; J2003; J2250; J2704; J7120